=== PATIENT | female | born 1990 | race Caucasian/White ===

== ENCOUNTER 2017-02-19 11:26 | Emergency (ER) | payer OTHER ==
[2017-02-19 11:30] VITALS: PULSE 56; RESP 18
[2017-02-19] MEDS ORDERED: ONDANSETRON 4 MG/2 ML VIAL IVP STA (12:15)
[2017-02-19] MEDS ORDERED: SODIUM CHLORIDE 0.9% 1,000 ML IV ONE (12:15)
[2017-02-19 12:26] LABS: Appearance,Urine Clear (Clear); Bacteria,Urine Rare /hpf; Bilirubin,Urine Negative (Negative); Glucose,Urine (UA) Negative (Negative); Ketones,Urine Negative (Negative); Leukocyte Esterase,Urine Moderate (Negative); Mucus,Urine Rare /hpf; Nitrite,Urine Positive (Negative); PH, Urine 6.5 (5.0-8.0); Particle Count 4346; Protein,Urine Negative (Negative); RBC,Urine 23 /hpf (0-5); Specific Gravity,Urine 1.005 (1.001-1.035); Squamous Epithelial Cell,Urine 4 /hpf (0-4); UA Billing (MACRO vs. MICRO) MICRO; Urobilinogen,Urine <2.0 mg/dL (<2.0); WBC,Urine 23 /hpf (0-5)
--- NOTE | 2017-02-19 12:28 | ED ---
Female Urogenital HPI - General Chief complaint: Urogenital Stated complaint: Flank pain Time Seen by Provider: 02/19/17 11:54 Source: patient, RN notes reviewed Mode of arrival: ambulatory Limitations: no limitations - History of Present Illness Initial comments: Patient is a 26-year-old female since emergency room for evaluation of pain and burning while urinating. Patient states she went to urgent care facility yesterday and was diagnosed with urinary tract infection. Patient states she was placed on Cipro and sent home. Patient states that she still having urinary tract symptoms. Patient states the burning is worse today. Patient also states that she's having right sided flank pain. Patient denies fevers. Patient states having on and off chills. Patient also states she's been very nauseous. Patient denies being currently sexually active. Patient denies history of STDs. Patient denies any abnormal vaginal discharge or discomfort. Last Menstrual Period: 02/05/17 - Related Data Home Medications Medication Instructions Recorded Confirmed Etonogestrel/Ethinyl Estradiol 1 ring VAGINAL Q28D 05/19/16 02/19/17 [Nuvaring Vaginal Ring] Cranberry Fruit Concentrate [Azo 500 mg PO DAILY 02/19/17 02/19/17 Cranberry] Phenazopyridine [Pyridium] 100 mg PO TID 02/19/17 02/19/17 Previous Rx's Medication Instructions Recorded Ondansetron Odt [Zofran Odt] 4 mg PO Q8HR PRN #12 tab 02/19/17 Allergies Allergy/AdvReac Type Severity Reaction Status Date / Time No Known Allergies Allergy Verified 02/19/17 12:31 Review of Systems ROS Statement: Those systems with pertinent positive or pertinent negative responses have been documented in the HPI. ROS Other: All systems not noted in ROS Statement are negative. Past Medical History Past Medical History: Asthma History of Any Multi-Drug Resistant Organisms: None Reported Past Surgical History: Appendectomy Additional Past Surgical History / Comment(s): nose surg. Past Anesthesia/Blood Transfusion Reactions: No Reported Reaction Past Psychological History: No Psychological Hx Reported Smoking Status: Never smoker Past Alcohol Use History: Occasional Past Drug Use History: None Reported - Past Family History Mother Family Medical History: No Reported History General Exam - General Exam Comments Initial Comments: Sitting in exam room, no acute distress. Limitations: no limitations General appearance: alert, in no apparent distress Head exam: Present: atraumatic, normocephalic, normal inspection Eye exam: Present: normal appearance ENT exam: Present: normal exam Neck exam: Present: normal inspection Respiratory exam: Present: normal lung sounds bilaterally. Absent: respiratory distress Cardiovascular Exam: Present: regular rate, normal rhythm, normal heart sounds GI/Abdominal exam: Present: soft, normal bowel sounds. Absent: distended, tenderness, guarding, rebound, rigid External exam: Present: normal external exam Speculum exam: Present: normal speculum exam By manual exam: Present: normal by manual exam Extremities exam: Present: normal inspection Back exam: Present: normal inspection. Absent: CVA tenderness (R), CVA tenderness (L) Neurological exam: Present: alert, oriented X3, CN II-XII intact, normal gait Psychiatric exam: Present: normal affect, normal mood Skin exam: Present: warm, dry, intact, normal color. Absent: rash Course Vital Signs 02/19/17 11:27 Temperature 96.7 F L Pulse Rate 56 L Respiratory 18 Rate Blood Pressure 144/74 O2 Sat by Pulse 99 Oximetry - Reevaluation(s) Reevaluation #1: 02/19/17 13:32 Patient reevaluated and states she is feeling better. Labs show no significant findings. WBC within normal limits. We'll place patient on 1 g of IV Rocephin and discharge her home with current antibiotics that she was prescribed yesterday. Medical Decision Making - Medical Decision Making Patient is a 26-year-old female presents to the emergency room for evaluation of urinary tract infection symptoms. Urinalysis does confirm urinary tract infection. Patient has already been started on Cipro. Will place patient on IV Rocephin and discharge her and have her continue with Cipro. Labs within normal limits. Patient states she is feeling better. Return parameters discussed. Case discussed with Dr. Guzman. - Lab Data Result diagrams: 02/19/17 12:20 02/19/17 12:20 Lab Results 02/19/17 02/19/17 02/19/17 Range/Units 12:05 12:05 12:20 WBC (3.8-10.6) k/uL RBC (3.80-5.40) m/uL Hgb (11.4-16.0) gm/dL Hct (34.0-46.0) % MCV (80.0-100.0) fL MCH (25.0-35.0) pg MCHC (31.0-37.0) g/dL RDW (11.5-15.5) % Plt Count (150-450) k/uL Neutrophils % % Lymphocytes % % Monocytes % % Eosinophils % % Basophils % % Neutrophils # (1.3-7.7) k/uL Lymphocytes # (1.0-4.8) k/uL Monocytes # (0-1.0) k/uL Eosinophils # (0-0.7) k/uL Basophils # (0-0.2) k/uL Sodium (137-145) mmol/L Potassium (3.5-5.1) mmol/L Chloride (98-107) mmol/L Carbon Dioxide (22-30) mmol/L Anion Gap mmol/L BUN (7-17) mg/dL Creatinine (0.52-1.04) mg/dL Est GFR (MDRD) Af Amer (>60 ml/min/1.73 sqM) Est GFR (MDRD) Non-Af (>60 ml/min/1.73 sqM) Glucose (74-99) mg/dL Calcium (8.4-10.2) mg/dL Total Bilirubin (0.2-1.3) mg/dL AST (14-36) U/L ALT (9-52) U/L Alkaline Phosphatase (38-126) U/L Total Protein (6.3-8.2) g/dL Albumin (3.5-5.0) g/dL Urine Color Dark Yellow Urine Appearance Clear (Clear) Urine pH 6.5 (5.0-8.0) Ur Specific [place] 1.005 (1.001-1.035) Urine Protein Negative (Negative) Urine Glucose (UA) Negative (Negative) Urine Ketones Negative (Negative) Urine Blood Moderate H (Negative) Urine Nitrite Positive H (Negative) Urine Bilirubin Negative (Negative) Urine Urobilinogen <2.0 (<2.0) mg/dL Ur Leukocyte Esterase Moderate H (Negative) Urine RBC 23 H (0-5) /hpf Urine WBC 23 H (0-5) /hpf Ur Squamous Epith Cells 4 (0-4) /hpf Urine Bacteria Rare H (None) /hpf Urine Mucus Rare H (None) /hpf Urine HCG, Qual Not Detected (Not Detectd) Trichomonas Ag (Rapid) Negative (Negative) 02/19/17 02/19/17 Range/Units 12:20 12:20 WBC 9.0 (3.8-10.6) k/uL RBC 4.94 (3.80-5.40) m/uL Hgb 13.5 (11.4-16.0) gm/dL Hct 40.4 (34.0-46.0) % MCV 81.8 (80.0-100.0) fL MCH 27.2 (25.0-35.0) pg MCHC 33.3 (31.0-37.0) g/dL RDW 13.3 (11.5-15.5) % Plt Count 334 (150-450) k/uL Neutrophils % 71 % Lymphocytes % 22 % Monocytes % 4 % Eosinophils % 2 % Basophils % 1 % Neutrophils # 6.4 (1.3-7.7) k/uL Lymphocytes # 2.0 (1.0-4.8) k/uL Monocytes # 0.3 (0-1.0) k/uL Eosinophils # 0.1 (0-0.7) k/uL Basophils # 0.0 (0-0.2) k/uL Sodium 141 (137-145) mmol/L Potassium 3.8 (3.5-5.1) mmol/L Chloride 106 (98-107) mmol/L Carbon Dioxide 25 (22-30) mmol/L Anion Gap 10 mmol/L BUN 8 (7-17) mg/dL Creatinine 0.78 (0.52-1.04) mg/dL Est GFR (MDRD) Af Amer >60 (>60 ml/min/1.73 sqM) Est GFR (MDRD) Non-Af >60 (>60 ml/min/1.73 sqM) Glucose 85 (74-99) mg/dL Calcium 9.5 (8.4-10.2) mg/dL Total Bilirubin 0.4 (0.2-1.3) mg/dL AST 15 (14-36) U/L ALT 28 (9-52) U/L Alkaline Phosphatase 75 (38-126) U/L Total Protein 7.5 (6.3-8.2) g/dL Albumin 4.2 (3.5-5.0) g/dL Urine Color Urine Appearance (Clear) Urine pH (5.0-8.0) Ur Specific [place] (1.001-1.035) Urine Protein (Negative) Urine Glucose (UA) (Negative) Urine Ketones (Negative) Urine Blood (Negative) Urine Nitrite (Negative) Urine Bilirubin (Negative) Urine Urobilinogen (<2.0) mg/dL Ur Leukocyte Esterase (Negative) Urine RBC (0-5) /hpf Urine WBC (0-5) /hpf Ur Squamous Epith Cells (0-4) /hpf Urine Bacteria (None) /hpf Urine Mucus (None) /hpf Urine HCG, Qual (Not Detectd) Trichomonas Ag (Rapid) (Negative) Disposition Clinical Impression: Urinary tract infection Disposition: HOME SELF-CARE Condition: Good Instructions: Urinary Tract Infection in Women (ED) Additional Instructions: Continue with current antibiotics. Take Zofran as needed for nausea. Drink plenty of water. Take Tylenol or Motrin as needed for pain. Please follow up with primary care provider in 1-2 days. If any new symptom arises or symptoms worsen, return to ER as soon as possible. Prescriptions: Ondansetron Odt [Zofran Odt] 4 mg PO Q8HR PRN #12 tab PRN Reason: Nausea Referrals: Livan Covington MD [Primary Care Provider] - 1-2 days Time of Disposition: 13:32
[2017-02-19 12:44] LABS: Basophils % (A) 1 %; CH 27.3; CHCM 33.5; Eosinophils # (A) 0.1 k/uL (0-0.7); Eosinophils % (A) 2 %; HCT 40.4 % (34.0-46.0); HDW 2.56; HGB 13.5 gm/dL (11.4-16.0); Luc # (Auto) 0.11; Luc % (Auto) 1; Lymphocytes % (A) 22 %; MCH 27.2 pg (25.0-35.0); MCHC 33.3 g/dL (31.0-37.0); MCV 81.8 fL (80.0-100.0); Mean Platelet Volume 6.5; Monocytes # (A) 0.3 k/uL (0-1.0); Monocytes % (A) 4 %; Neutrophils # (A) 6.4 k/uL (1.3-7.7); Neutrophils % (A) 71 %; RBC 4.94 m/uL (3.80-5.40); RDW 13.3 % (11.5-15.5); WBC (Perox) 9.02
[2017-02-19 12:55] LABS: ALT 28 U/L (9-52); AST 15 U/L (14-36); Alkaline Phosphatase 75 U/L (38-126); Anion Gap 10 mmol/L; Blood Urea Nitrogen 8 mg/dL (7-17); Calcium 9.5 mg/dL (8.4-10.2); Carbon Dioxide 25 mmol/L (22-30); Chloride 106 mmol/L (98-107); Glucose 85 mg/dL (74-99); Non-African American GFR(MDRD) >60 (>60 ml/min/1.73 sqM); Potassium 3.8 mmol/L (3.5-5.1); Sodium 141 mmol/L (137-145); Total Bilirubin 0.4 mg/dL (0.2-1.3); Total Protein 7.5 g/dL (6.3-8.2)
[2017-02-19 14:19] VITALS: BP 118/71; TEMP 98
== END 2017-02-19 14:22 | disposition home or self-care (01) ==
LOC: EC 11:26
DX: N39.0 Urinary tract infection, site not specified (principal)
CPT/HCPCS: 36415; 80053; 87591; 87491; 85025; 81001; 81025; 87808; 87070; 87205; 96365; 96375; 99284; J2405; J0696

== ENCOUNTER 2020-04-17 03:06 | Emergency (ER) | payer OTHER ==
[2020-04-17 03:17] VITALS: RESP 16
--- NOTE | 2020-04-17 03:19 | ED ---
Eye Problem HPI - General Chief complaint: Eye Problems Stated complaint: Eye Problems Time Seen by Provider: 04/17/20 03:09 Source: patient, RN notes reviewed, old records reviewed Mode of arrival: ambulatory Limitations: no limitations - History of Present Illness MD chief complaint: eye pain (L), eye redness (L) -: hour(s) Onset Description: gradual Location: left eye Place: home If Injury: none Eye Symptoms: burning, redness, itching Severity: mild Severity scale (1-10): 3 If Pain, Quality: aching Consistency: constant Context: other (glasses) Associated Symptoms: none Treatments Prior to Arrival: none - Related Data Home Medications Medication Instructions Recorded Confirmed Etonogestrel/Ethinyl Estradiol 1 ring VAGINAL Q28D 05/19/16 02/19/17 [Nuvaring Vaginal Ring] Cranberry Fruit Concentrate [Azo 500 mg PO DAILY 02/19/17 02/19/17 Cranberry] Phenazopyridine [Pyridium] 100 mg PO TID 02/19/17 02/19/17 Previous Rx's Medication Instructions Recorded Ondansetron Odt [Zofran Odt] 4 mg PO Q8HR PRN #12 tab 02/19/17 Amoxic-Pot Clav 875-125Mg 1 tab PO Q12HR #20 tablet 04/17/20 [Augmentin 875-125] Allergies Allergy/AdvReac Type Severity Reaction Status Date / Time No Known Allergies Allergy Verified 04/17/20 03:17 Review of Systems ROS Statement: Those systems with pertinent positive or pertinent negative responses have been documented in the HPI. ROS Other: All systems not noted in ROS Statement are negative. Past Medical History Past Medical History: Asthma History of Any Multi-Drug Resistant Organisms: None Reported Past Surgical History: Appendectomy Additional Past Surgical History / Comment(s): nose surg. Past Anesthesia/Blood Transfusion Reactions: No Reported Reaction Past Psychological History: No Psychological Hx Reported Smoking Status: Never smoker Past Alcohol Use History: Occasional Past Drug Use History: None Reported - Past Family History Mother Family Medical History: No Reported History General Exam Limitations: no limitations General appearance: alert, in no apparent distress Head exam: Present: atraumatic, normocephalic, normal inspection Eye exam: Present: normal appearance, PERRL, EOMI, periorbital swelling (mild). Absent: scleral icterus, conjunctival injection ENT exam: Present: normal exam, mucous membranes moist Neck exam: Present: normal inspection. Absent: tenderness, meningismus, lymphadenopathy Respiratory exam: Present: normal lung sounds bilaterally. Absent: respiratory distress, wheezes, rales, rhonchi, stridor Cardiovascular Exam: Present: regular rate, normal rhythm, normal heart sounds. Absent: systolic murmur, diastolic murmur, rubs, gallop, clicks GI/Abdominal exam: Present: soft, normal bowel sounds. Absent: distended, tenderness, guarding, rebound, rigid Extremities exam: Present: normal inspection, full ROM, normal capillary refill. Absent: tenderness, pedal edema, joint swelling, calf tenderness Back exam: Present: normal inspection Neurological exam: Present: alert, oriented X3, CN II-XII intact Psychiatric exam: Present: normal affect, normal mood Skin exam: Present: warm, dry, intact, normal color. Absent: rash Course Vital Signs 04/17/20 04/17/20 03:16 04:49 Temperature 98.5 F 98 F Pulse Rate 68 69 Respiratory 16 16 Rate Blood Pressure 158/94 123/74 O2 Sat by Pulse 100 100 Oximetry Disposition Clinical Impression: Preseptal cellulitis of left eye, Left conjunctivitis Disposition: HOME SELF-CARE Condition: Good Instructions (If sedation given, give patient instructions): Periorbital Cellulitis in Adults (ED), Conjunctivitis (ED) Prescriptions: Amoxic-Pot Clav 875-125Mg [Augmentin 875-125] 1 tab PO Q12HR #20 tablet Is patient prescribed a controlled substance at d/c from ED?: No Referrals: Nonstaff,Physician [REFERRING] - 1-2 days
[2020-04-17] MEDS ORDERED: DEXAMETHASONE SOD PHOSPHATE 10 MG/ML 1 ML VIAL IM STA (04:18)
[2020-04-17] MEDS ORDERED: AMOXIC-POT CLAV 875-125MG 1 EACH TAB PO STA (04:18)
[2020-04-17] MEDS ORDERED: POLYMYXIN B-TRIMETHOPRIM SULF (10,000-1) OPHTH DROPS 10 ML BTL LEFT EYE STA (04:18)
[2020-04-17] MEDS ORDERED: ACET/COD 300 MG/30 MG STARTER PACK 6 TAB BTL PO STA (04:38)
[2020-04-17] MEDS ORDERED: IBUPROFEN 600 MG TAB PO STA (04:38)
[2020-04-17 04:49] VITALS: BP 123/74; PULSE 69; TEMP 98
== END 2020-04-17 04:49 | disposition home or self-care (01) ==
LOC: EC 03:06
DX: L03.213 Periorbital cellulitis (principal); H10.9 Unspecified conjunctivitis
CPT/HCPCS: 99283; 96372; J1100

== ENCOUNTER 2020-08-06 02:54 | Emergency (ER) | payer OTHER ==
[2020-08-06 02:59] VITALS: TEMP 97.6
--- NOTE | 2020-08-06 03:25 | ED ---
General Adult HPI - General Chief complaint: GI Bleed Stated complaint: Urogenital Time Seen by Provider: 08/06/20 02:59 Source: patient Mode of arrival: ambulatory Limitations: no limitations - History of Present Illness Initial comments: This patient is 30-year-old woman who complains of perianal pain. The patient relates that she had a colonoscopy and a hemorrhoid banding performed at about 11:[address] Yoon. She had gone home around 12:30 and then had gone to bed. She woke a number of hours later was some perianal discomfort that has just worsened and is now severe. She denies any abdominal pain. No fever or chills. No vomiting. No change in urination. She has tried some extra strength Tylenol without much relief. -: hour(s) Quality: sharp Consistency: constant Improves with: none Worsens with: none Associated Symptoms: denies other symptoms Treatments Prior to Arrival: other (Tylenol) - Related Data Home Medications Medication Instructions Recorded Confirmed Etonogestrel/Ethinyl Estradiol 1 ring VAGINAL Q28D 05/19/16 02/19/17 [Nuvaring Vaginal Ring] Cranberry Fruit Concentrate [Azo 500 mg PO DAILY 02/19/17 02/19/17 Cranberry] Phenazopyridine [Pyridium] 100 mg PO TID 02/19/17 02/19/17 Previous Rx's Medication Instructions Recorded Ondansetron Odt [Zofran Odt] 4 mg PO Q8HR PRN #12 tab 02/19/17 Amoxic-Pot Clav 875-125Mg 1 tab PO Q12HR #20 tablet 04/17/20 [Augmentin 875-125] Hydrocodone/Acetaminophen [[place] 1 each PO Q6HR PRN #15 tab 08/06/20 5-325] Allergies Allergy/AdvReac Type Severity Reaction Status Date / Time No Known Allergies Allergy Verified 08/06/20 02:59 Review of Systems ROS Statement: Those systems with pertinent positive or pertinent negative responses have been documented in the HPI. ROS Other: All systems not noted in ROS Statement are negative. Constitutional: Denies: fever, chills Respiratory: Denies: cough, dyspnea Cardiovascular: Denies: chest pain, palpitations Gastrointestinal: Reports: as per HPI, other (Perianal pain). Denies: abdominal pain, vomiting, diarrhea Genitourinary: Denies: dysuria, hematuria Musculoskeletal: Denies: back pain Skin: Denies: rash Neurological: Denies: headache Hematological/Lymphatic: Denies: easy bleeding Past Medical History Past Medical History: Asthma Additional Past Medical History / Comment(s): IBS History of Any Multi-Drug Resistant Organisms: None Reported Past Surgical History: Appendectomy Additional Past Surgical History / Comment(s): nose surg. colonoscopy Past Anesthesia/Blood Transfusion Reactions: No Reported Reaction Past Psychological History: No Psychological Hx Reported Smoking Status: Never smoker Past Alcohol Use History: Occasional Past Drug Use History: None Reported - Past Family History Mother Family Medical History: No Reported History General Exam Limitations: no limitations General appearance: alert, in no apparent distress Head exam: Present: atraumatic, normocephalic Eye exam: Present: normal appearance. Absent: scleral icterus, conjunctival injection Respiratory exam: Present: normal lung sounds bilaterally. Absent: respiratory distress, wheezes, rales, rhonchi, stridor Cardiovascular Exam: Present: regular rate, normal rhythm, normal heart sounds. Absent: systolic murmur, diastolic murmur, rubs, gallop GI/Abdominal exam: Present: soft. Absent: distended, tenderness, guarding, rebound, rigid, mass, pulsatile mass, hernia Rectal exam: Present: normal inspection, normal rectal tone Neurological exam: Present: alert Skin exam: Present: warm, dry, intact, normal color. Absent: rash Course Vital Signs 08/06/20 02:55 Temperature 97.6 F Pulse Rate 76 Respiratory 18 Rate Blood Pressure 161/104 O2 Sat by Pulse 99 Oximetry Medical Decision Making - Medical Decision Making This patient is 30-year-old woman presenting with perianal pain after having a hemorrhoid banding. There is no indication of intra-abdominal problem, absolutely no pain or any tenderness on the exam. Inspection of the anus normal. Finger exam deferred at patient request, given the pain due to procedure. She is in good relief with analgesia, and we discussed appropriate further care and follow-up as well as return parameters. Disposition Clinical Impression: Pain following surgery or procedure, Hemorrhoids, internal Disposition: HOME SELF-CARE Condition: Good Instructions (If sedation given, give patient instructions): Rubber Band Ligation (DC) Prescriptions: Hydrocodone/Acetaminophen [[place] 5-325] 1 each PO Q6HR PRN #15 tab PRN Reason: Pain Is patient prescribed a controlled substance at d/c from ED?: Yes When asked, does pt state using other controlled substances?: No If prescribed controlled substance>3 days was MAPS reviewed?: Prescribed <3 Days If opioid is for acute pain is fill amount 7 days or less?: Yes If Rx opioid, was Start Talking consent form obtained?: Yes Referrals: Cherelle Coppola MD [Primary Care Provider] - 1-2 days
[2020-08-06] MEDS ORDERED: HYDROmorphone 0.5 MG/0.5 ML SYRINGE IM STA (03:36)
[2020-08-06] MEDS ORDERED: ONDANSETRON ODT 4 MG TAB PO STA (03:48)
[2020-08-06] MEDS ORDERED: HYDROmorphone 1 MG/ML 1 ML SYRINGE IM STA (04:05)
[2020-08-06 04:50] VITALS: BP 110/67; PULSE 78; RESP 16
== END 2020-08-06 04:50 | disposition home or self-care (01) ==
LOC: EC 02:54
DX: G89.18 Other acute postprocedural pain (principal); K64.8 Other hemorrhoids; Z79.3 Long term (current) use of hormonal contraceptives
CPT/HCPCS: 96372 ×2; 99284; J1170 ×2

== ENCOUNTER 2021-05-05 07:48 | Emergency (ER) | payer OTHER ==
[2021-05-05 07:55] VITALS: BP 132/90; PULSE 95; RESP 18; TEMP 97.3
--- NOTE | 2021-05-05 08:06 | ED ---
Skin/Abscess/FB HPI - General Chief complaint: Skin/Abscess/Foreign Body Stated complaint: tick bite Time Seen by Provider: 05/05/21 07:58 Source: patient, family, RN notes reviewed Mode of arrival: ambulatory Limitations: no limitations - History of Present Illness Initial comments: 31-year-old female presents emergency Department chief complaint of a tick on her abdomen. Patient states she's been sitting up and outdoor venue. Patient states that she noticed overnight. Patient states it's very small no other complaints. - Related Data Home Medications Medication Instructions Recorded Confirmed Etonogestrel/Ethinyl Estradiol 1 ring VAGINAL Q28D 05/19/16 02/19/17 [Nuvaring Vaginal Ring] Cranberry Fruit Concentrate [Azo 500 mg PO DAILY 02/19/17 02/19/17 Cranberry] Phenazopyridine [Pyridium] 100 mg PO TID 02/19/17 02/19/17 Previous Rx's Medication Instructions Recorded Ondansetron Odt [Zofran Odt] 4 mg PO Q8HR PRN #12 tab 02/19/17 Amoxic-Pot Clav 875-125Mg 1 tab PO Q12HR #20 tablet 04/17/20 [Augmentin 875-125] Hydrocodone/Acetaminophen [[place] 1 each PO Q6HR PRN #15 tab 08/06/20 5-325] Allergies Allergy/AdvReac Type Severity Reaction Status Date / Time No Known Allergies Allergy Verified 05/05/21 07:55 Review of Systems ROS Statement: Those systems with pertinent positive or pertinent negative responses have been documented in the HPI. ROS Other: All systems not noted in ROS Statement are negative. Past Medical History Past Medical History: Asthma Additional Past Medical History / Comment(s): IBS History of Any Multi-Drug Resistant Organisms: None Reported Past Surgical History: Appendectomy Additional Past Surgical History / Comment(s): nose surg. colonoscopy Past Anesthesia/Blood Transfusion Reactions: No Reported Reaction Past Psychological History: No Psychological Hx Reported Smoking Status: Never smoker Past Alcohol Use History: Occasional Past Drug Use History: None Reported - Past Family History Mother Family Medical History: No Reported History General Exam Limitations: no limitations General appearance: alert, in no apparent distress Head exam: Present: atraumatic, normocephalic, normal inspection Respiratory exam: Present: normal lung sounds bilaterally. Absent: respiratory distress, wheezes, rales, rhonchi, stridor Cardiovascular Exam: Present: regular rate, normal rhythm, normal heart sounds. Absent: systolic murmur, diastolic murmur, rubs, gallop, clicks Neurological exam: Present: alert Psychiatric exam: Present: normal affect, normal mood Skin exam: Present: warm, dry, intact, normal color. Absent: rash Course Vital Signs 05/05/21 07:51 Temperature 97.3 F L Pulse Rate 95 Respiratory 18 Rate Blood Pressure 132/90 O2 Sat by Pulse 99 Oximetry Procedures - Procedures Initial comment: Small dog tick around the umbilicus was removed using tick forcep remover with no complications Medical Decision Making - Medical Decision Making Tick was removed with no complications. This was a dog tick. Patient be discharged stable condition. Disposition Clinical Impression: Tick bite of abdomen Disposition: HOME SELF-CARE Condition: Stable Instructions (If sedation given, give patient instructions): Tick Bite (ED) Additional Instructions: Please return to the Emergency Department if symptoms worsen or any other concerns. Is patient prescribed a controlled substance at d/c from ED?: No Referrals: Cherelle Coppola MD [Primary Care Provider] - 1-2 days Time of Disposition: 08:06
== END 2021-05-05 08:25 | disposition home or self-care (01) ==
LOC: EC 07:48
DX: S30.861A Insect bite (nonvenomous) of abdominal wall, initial encounter (principal); J45.909 Unspecified asthma, uncomplicated; W57.XXXA Bitten or stung by nonvenomous insect and other nonvenomous arthropods, initial encounter
CPT/HCPCS: 99282

== ENCOUNTER 2021-08-31 05:42 | Emergency (ER) | payer BC, OTHER ==
[2021-08-31 05:48] VITALS: BP 139/95; PULSE 67; RESP 22; TEMP 97.9
[2021-08-31] MEDS ORDERED: FLUORESCEIN STRIPS 1 MG STRIP RIGHT EYE ONE (05:55)
[2021-08-31] MEDS ORDERED: PROPARACAINE 0.5% OPHTH DROPS 15 ML BTL RIGHT EYE STA (05:55)
--- NOTE | 2021-08-31 06:14 | ED ---
Eye Problem HPI - General Chief complaint: Eye Problems Stated complaint: Left Eye Irritation Time Seen by Provider: 08/31/21 05:55 Source: patient, family, RN notes reviewed Mode of arrival: ambulatory Limitations: no limitations - History of Present Illness Initial comments: Patient is a 31-year-old female presenting to the ED for left eye pain that has been present since this morning. Patient states feeling is burning and itching feeling with worse pain located in upper eyelid. Patient denies any history of trauma or scratch to the eye. Patient describes pain as constant, "feeling of hot tears, feeling like there is rocks or stones in her eye". Patient states she is in 10/10 pain that is made worse with light and alleviated with closing eye. - Related Data Home Medications Medication Instructions Recorded Confirmed Etonogestrel/Ethinyl Estradiol 1 ring VAGINAL Q28D 05/19/16 02/19/17 [Nuvaring Vaginal Ring] Cranberry Fruit Concentrate [Azo 500 mg PO DAILY 02/19/17 02/19/17 Cranberry] Phenazopyridine [Pyridium] 100 mg PO TID 02/19/17 02/19/17 Previous Rx's Medication Instructions Recorded Ondansetron Odt [Zofran Odt] 4 mg PO Q8HR PRN #12 tab 02/19/17 Amoxic-Pot Clav 875-125Mg 1 tab PO Q12HR #20 tablet 04/17/20 [Augmentin 875-125] Hydrocodone/Acetaminophen [[place] 1 each PO Q6HR PRN #15 tab 08/06/20 5-325] Allergies Allergy/AdvReac Type Severity Reaction Status Date / Time No Known Allergies Allergy Verified 08/31/21 05:48 Review of Systems ROS Statement: Those systems with pertinent positive or pertinent negative responses have been documented in the HPI. ROS Other: All systems not noted in ROS Statement are negative. Past Medical History Past Medical History: Asthma Additional Past Medical History / Comment(s): IBS History of Any Multi-Drug Resistant Organisms: None Reported Past Surgical History: Appendectomy Additional Past Surgical History / Comment(s): nose surg. colonoscopy Past Anesthesia/Blood Transfusion Reactions: No Reported Reaction Past Psychological History: No Psychological Hx Reported Smoking Status: Never smoker Past Alcohol Use History: Occasional Past Drug Use History: None Reported - Past Family History Mother Family Medical History: No Reported History General Exam Limitations: no limitations General appearance: alert, in distress (Pain) Eye exam: Present: conjunctival injection, other (Superior lid edema). Absent: normal appearance Pupils: Present: normal accommodation, other (Patient had fluorescein uptake of the left eye there is an internalstye) ENT exam: Present: normal exam, mucous membranes moist Respiratory exam: Present: normal lung sounds bilaterally. Absent: respiratory distress, wheezes, rales, rhonchi, stridor Cardiovascular Exam: Present: regular rate, normal rhythm, normal heart sounds. Absent: systolic murmur, diastolic murmur, rubs, gallop, clicks Neurological exam: Present: alert, oriented X3, CN II-XII intact Skin exam: Present: warm, dry, intact, normal color. Absent: rash Course Vital Signs 08/31/21 05:43 Temperature 97.9 F Pulse Rate 67 Respiratory 22 Rate Blood Pressure 139/95 O2 Sat by Pulse 97 Oximetry Medical Decision Making - Medical Decision Making 31-year-old female presented for left eye irritation. Patient complete relief of symptoms of proparacaine. There appears to be a small internal stye, corneal abrasion. Patient was started on Tobrex ointment, eye drops and will follow-up with Dr. Bashir her sound printer. Disposition Clinical Impression: Corneal abrasion, right, Internal hordeolum of left eye Disposition: HOME SELF-CARE Condition: Stable Instructions (If sedation given, give patient instructions): Corneal Abrasion (ED) Additional Instructions: Please return to the Emergency Department if symptoms worsen or any other concerns. Is patient prescribed a controlled substance at d/c from ED?: No Referrals: Cherelle Coppola MD [Primary Care Provider] - 1-2 days Gabo Bashir DO [Doctor of Osteopathic Medicine] - 1-2 days Time of Disposition: 06:33
[2021-08-31] MEDS ORDERED: TOBRAMYCIN 0.3% OPHTH OINT 3.5 GM TUBE LEFT EYE STA (06:33)
[2021-08-31] MEDS ORDERED: TOBRAMYCIN 0.3% OPHTH DROPS 5 ML BTL LEFT EYE STA (06:33)
== END 2021-08-31 06:40 | disposition home or self-care (01) ==
LOC: EC 05:42
DX: H00.016 Hordeolum externum left eye, unspecified eyelid (principal); S05.01XA Injury of conjunctiva and corneal abrasion without foreign body, right eye, initial encounter; J45.909 Unspecified asthma, uncomplicated; Z90.49 Acquired absence of other specified parts of digestive tract; X58.XXXA Exposure to other specified factors, initial encounter
CPT/HCPCS: 99283

== ENCOUNTER → 2021-09-30 | Outpatient (CLI) | payer BC ==
[2021-10-02 06:03] LABS: Herpes simplex I and/or II IgM 0.52 INDEX (<=0.90); Herpes simplex IgG I Ab 0.33 (< or = 0.90); Herpes simplex IgG II Ab 0.11 (< or = 0.90)
== END | disposition home or self-care (01) ==
LOC: LABWHC1 10:27
PROVIDERS: ATTEND Internal Medicine
DX: H16.3 Interstitial and deep keratitis (principal)
CPT/HCPCS: 36415; 86480; 86618; 86694; 86695; 86696; 86780

== ENCOUNTER → 2021-10-28 | Outpatient (CLI) | payer BC ==
[2021-10-29 00:21] LABS: Rheumatoid Factor, Qnt <10 IU/mL (0-15)
[2021-10-30 14:42] LABS: C-ANCA <1:20 Titer (<1:20)
== END | disposition home or self-care (01) ==
LOC: LABWHC1 10:35
PROVIDERS: ATTEND Internal Medicine
DX: H16.3 Interstitial and deep keratitis (principal)
CPT/HCPCS: 36415; 86038; 86255; 86431; 86618

== ENCOUNTER → 2021-12-27 | Outpatient (CLI) | payer BC | END | disposition home or self-care (01) | LOC: LABWHC1 15:32 | PROVIDERS: ATTEND Internal Medicine | DX: H16.3 Interstitial and deep keratitis (principal) | CPT/HCPCS: 36415; 86617 ==

== ENCOUNTER 2022-04-06 20:50 | Emergency (ER) | payer BC ==
[2022-04-06 22:03] VITALS: BP 131/80; PULSE 107; RESP 18; TEMP 98.4
[2022-04-06] MEDS ORDERED: SODIUM CHLORIDE 0.9% 1,000 ML IV STA (22:42)
[2022-04-06] MEDS ORDERED: ONDANSETRON 4 MG/2 ML VIAL IVP STA (22:42)
--- NOTE | 2022-04-06 22:45 | ED ---
Nausea/Vomiting/Diarrhea HPI - General Chief complaint: Nausea/Vomiting/Diarrhea Stated complaint: Possible Food Poisoning Time Seen by Provider: 04/06/22 22:32 Source: patient, RN notes reviewed Mode of arrival: ambulatory Limitations: no limitations - History of Present Illness Initial comments: This is a pleasant 32-year-old female who presents complaining of nausea, vomiting, and diarrhea since this morning. Patient states that several family members have similar symptoms. Patient states she irrigated a concession stand yesterday at her nephew's T-ball game. Patient states anytime she tries to eat or drink anything she is not able to hold it down. She denies any hematemesis or coffee-ground emesis. No melena or hematochezia. Denies chance of . Patient now states that she's got some low back pain. Patient wondering if she strained her back when she was vomiting. MD complaint: nausea, vomiting, diarrhea - Related Data Home Medications Medication Instructions Recorded Confirmed Amitriptyline HCl [Elavil] 10 mg PO HS 04/06/22 04/06/22 Allergies Allergy/AdvReac Type Severity Reaction Status Date / Time No Known Allergies Allergy Verified 04/06/22 22:49 Review of Systems ROS Statement: Those systems with pertinent positive or pertinent negative responses have been documented in the HPI. ROS Other: All systems not noted in ROS Statement are negative. Past Medical History Past Medical History: Asthma Additional Past Medical History / Comment(s): IBS History of Any Multi-Drug Resistant Organisms: None Reported Past Surgical History: Appendectomy Additional Past Surgical History / Comment(s): nose surg. colonoscopy Past Anesthesia/Blood Transfusion Reactions: No Reported Reaction Past Psychological History: No Psychological Hx Reported Smoking Status: Never smoker Past Alcohol Use History: Occasional Past Drug Use History: None Reported - Past Family History Mother Family Medical History: No Reported History General Exam Limitations: no limitations General appearance: alert, in no apparent distress Head exam: Present: atraumatic, normocephalic, normal inspection Eye exam: Present: normal appearance, PERRL, EOMI. Absent: scleral icterus, conjunctival injection, periorbital swelling ENT exam: Present: normal exam, mucous membranes moist Neck exam: Present: normal inspection, full ROM. Absent: tenderness, meningismus, lymphadenopathy Respiratory exam: Present: normal lung sounds bilaterally. Absent: respiratory distress, wheezes, rales, rhonchi, stridor Cardiovascular Exam: Present: regular rate, normal rhythm, normal heart sounds. Absent: systolic murmur, diastolic murmur, rubs, gallop, clicks GI/Abdominal exam: Present: soft, normal bowel sounds. Absent: distended, tenderness (No significant tenderness), guarding, rebound, rigid Extremities exam: Present: normal inspection, full ROM, normal capillary refill. Absent: tenderness, pedal edema, joint swelling, calf tenderness Back exam: Present: normal inspection Neurological exam: Present: alert, oriented X3, CN II-XII intact Psychiatric exam: Present: normal affect, normal mood Skin exam: Present: warm, dry, intact, normal color. Absent: rash Course Vital Signs 04/06/22 22:01 Temperature 98.4 F Pulse Rate 107 H Respiratory 18 Rate Blood Pressure 131/80 O2 Sat by Pulse 98 Oximetry - Reevaluation(s) Reevaluation #1: 04/07/22 02:22 Medical record is reviewed Symptoms are improved here in the emergency department Patient is informed of results and questions answered Patient in no distress Repeat abdominal exam is benign, nontender, nondistended. Patient able to hold down fluids here in the ER. Medical Decision Making - Medical Decision Making Symptomology most consistent with gastroenteritis as she has multiple family members with similar symptomology. However she does have some low back pain. We'll order baseline laboratory work, we'll hydrate the patient. - Lab Data Result diagrams: 04/06/22 23:06 04/06/22 23:06 Lab Results 04/06/22 04/06/22 04/07/22 Range/Units 23:06 23:06 01:36 WBC 9.3 (3.8-10.6) k/uL RBC 5.27 (3.80-5.40) m/uL Hgb 13.7 (11.4-16.0) gm/dL Hct 42.5 (34.0-46.0) % MCV 80.7 (80.0-100.0) fL MCH 25.9 (25.0-35.0) pg MCHC 32.2 (31.0-37.0) g/dL RDW 14.6 (11.5-15.5) % Plt Count 395 (150-450) k/uL MPV 6.7 Neutrophils % 88 % Lymphocytes % 8 % Monocytes % 3 % Eosinophils % 1 % Basophils % 0 % Neutrophils # 8.2 H (1.3-7.7) k/uL Lymphocytes # 0.7 L (1.0-4.8) k/uL Monocytes # 0.3 (0-1.0) k/uL Eosinophils # 0.1 (0-0.7) k/uL Basophils # 0.0 (0-0.2) k/uL Sodium 137 (137-145) mmol/L Potassium 4.4 (3.5-5.1) mmol/L Chloride 105 (98-107) mmol/L Carbon Dioxide 25 (22-30) mmol/L Anion Gap 7 mmol/L BUN 14 (7-17) mg/dL Creatinine 0.81 (0.52-1.04) mg/dL Est GFR (CKD-EPI)AfAm >90 (>60 ml/min/1.73 sqM) Est GFR (CKD-EPI)NonAf >90 (>60 ml/min/1.73 sqM) Glucose 104 H (74-99) mg/dL Calcium 8.9 (8.4-10.2) mg/dL Total Bilirubin 0.7 (0.2-1.3) mg/dL AST 20 (14-36) U/L ALT 15 (4-34) U/L Alkaline Phosphatase 99 (38-126) U/L Total Protein 7.7 (6.3-8.2) g/dL Albumin 4.3 (3.5-5.0) g/dL Lipase 30 (23-300) U/L Urine Color Yellow Urine Appearance Clear (Clear) Urine pH 5.5 (5.0-8.0) Ur Specific Garner 1.030 (1.001-1.035) Urine Protein Trace H (Negative) Urine Glucose (UA) Negative (Negative) Urine Ketones Negative (Negative) Urine Blood Moderate H (Negative) Urine Nitrite Negative (Negative) Urine Bilirubin Negative (Negative) Urine Urobilinogen <2.0 (<2.0) mg/dL Ur Leukocyte Esterase Negative (Negative) Urine RBC 4 (0-5) /hpf Urine WBC 3 (0-5) /hpf Ur Squamous Epith Cells 1 (0-4) /hpf Urine Mucus Few H (None) /hpf Urine HCG, Qual (Not Detectd) 04/07/22 Range/Units 01:36 WBC (3.8-10.6) k/uL RBC (3.80-5.40) m/uL Hgb (11.4-16.0) gm/dL Hct (34.0-46.0) % MCV (80.0-100.0) fL MCH (25.0-35.0) pg MCHC (31.0-37.0) g/dL RDW (11.5-15.5) % Plt Count (150-450) k/uL MPV Neutrophils % % Lymphocytes % % Monocytes % % Eosinophils % % Basophils % % Neutrophils # (1.3-7.7) k/uL Lymphocytes # (1.0-4.8) k/uL Monocytes # (0-1.0) k/uL Eosinophils # (0-0.7) k/uL Basophils # (0-0.2) k/uL Sodium (137-145) mmol/L Potassium (3.5-5.1) mmol/L Chloride (98-107) mmol/L Carbon Dioxide (22-30) mmol/L Anion Gap mmol/L BUN (7-17) mg/dL Creatinine (0.52-1.04) mg/dL Est GFR (CKD-EPI)AfAm (>60 ml/min/1.73 sqM) Est GFR (CKD-EPI)NonAf (>60 ml/min/1.73 sqM) Glucose (74-99) mg/dL Calcium (8.4-10.2) mg/dL Total Bilirubin (0.2-1.3) mg/dL AST (14-36) U/L ALT (4-34) U/L Alkaline Phosphatase (38-126) U/L Total Protein (6.3-8.2) g/dL Albumin (3.5-5.0) g/dL Lipase (23-300) U/L Urine Color Urine Appearance (Clear) Urine pH (5.0-8.0) Ur Specific Garner (1.001-1.035) Urine Protein (Negative) Urine Glucose (UA) (Negative) Urine Ketones (Negative) Urine Blood (Negative) Urine Nitrite (Negative) Urine Bilirubin (Negative) Urine Urobilinogen (<2.0) mg/dL Ur Leukocyte Esterase (Negative) Urine RBC (0-5) /hpf Urine WBC (0-5) /hpf Ur Squamous Epith Cells (0-4) /hpf Urine Mucus (None) /hpf Urine HCG, Qual Not Detected (Not Detectd) Disposition Clinical Impression: Acute gastroenteritis Disposition: HOME SELF-CARE Condition: Good Instructions (If sedation given, give patient instructions): Gastroenteritis (ED) Additional Instructions: Clear liquid diet for the next 24 hours. Advance diet as tolerated thereafter. Follow-up with your regular physician as directed. Return to the ER immediately if any symptoms worsen, new symptoms arise, or any other problems develop. Is patient prescribed a controlled substance at d/c from ED?: No Referrals: Cherelle Coppola MD [Primary Care Provider] - 04/11/22 Time of Disposition: 02:23
[2022-04-06 23:44] LABS: Basophils % (A) 0 %; Eosinophils # (A) 0.1 k/uL (0-0.7); Eosinophils % (A) 1 %; HCT 42.5 % (34.0-46.0); HGB 13.7 gm/dL (11.4-16.0); Lymphocytes # (A) 0.7 k/uL (1.0-4.8); Lymphocytes % (A) 8 %; MCH 25.9 pg (25.0-35.0); MCHC 32.2 g/dL (31.0-37.0); MCV 80.7 fL (80.0-100.0); Mean Platelet Volume 6.7; Monocytes # (A) 0.3 k/uL (0-1.0); Monocytes % (A) 3 %; Neutrophils # (A) 8.2 k/uL (1.3-7.7); Neutrophils % (A) 88 %; Platelet Count 395 k/uL (150-450); RBC 5.27 m/uL (3.80-5.40); RDW 14.6 % (11.5-15.5); WBC 9.3 k/uL (3.8-10.6)
[2022-04-07 00:04] LABS: ALT 15 U/L (4-34); AST 20 U/L (14-36); African American GFR (CKD) >90 (>60 ml/min/1.73 sqM); Albumin 4.3 g/dL (3.5-5.0); Alkaline Phosphatase 99 U/L (38-126); Anion Gap 7 mmol/L; Blood Urea Nitrogen 14 mg/dL (7-17); Calcium 8.9 mg/dL (8.4-10.2); Carbon Dioxide 25 mmol/L (22-30); Chloride 105 mmol/L (98-107); Glucose 104 mg/dL (74-99); Lipase 30 U/L (23-300); Non-African American GFR(CKD) >90 (>60 ml/min/1.73 sqM); Potassium 4.4 mmol/L (3.5-5.1); Sodium 137 mmol/L (137-145); Total Bilirubin 0.7 mg/dL (0.2-1.3); Total Protein 7.7 g/dL (6.3-8.2)
[2022-04-07 02:07] LABS: Appearance,Urine Clear (Clear); Bilirubin,Urine Negative (Negative); Blood,Urine Moderate (Negative); Color,Urine Yellow; Glucose,Urine (UA) Negative (Negative); Ketones,Urine Negative (Negative); Leukocyte Esterase,Urine Negative (Negative); Mucus,Urine Few /hpf; Nitrite,Urine Negative (Negative); PH, Urine 5.5 (5.0-8.0); Protein,Urine Trace (Negative); RBC,Urine 4 /hpf (0-5); Squamous Epithelial Cell,Urine 1 /hpf (0-4); Urobilinogen,Urine <2.0 mg/dL (<2.0); WBC,Urine 3 /hpf (0-5)
== END 2022-04-07 03:03 | disposition home or self-care (01) ==
LOC: EC 20:50
DX: K52.9 Noninfective gastroenteritis and colitis, unspecified (principal); J45.909 Unspecified asthma, uncomplicated
CPT/HCPCS: 36415; 80053; 83690; 85025; 81001; 81025; 99284; 96374; 96361 ×2; J2405

== ENCOUNTER 2023-04-24 19:18 | Emergency (ER) | payer BC ==
[2023-04-24 19:45] VITALS: TEMP 97.9
[2023-04-24] MEDS ORDERED: KETOROLAC 15 MG/ML 1 ML VIAL IVP STA (20:14)
[2023-04-24 20:40] LABS: Basophils % (A) 0 %; Eosinophils # (A) 0.4 k/uL (0-0.7); Eosinophils % (A) 4 %; HCT 38.6 % (34.0-46.0); HGB 12.9 gm/dL (11.4-16.0); Lymphocytes # (A) 2.2 k/uL (1.0-4.8); Lymphocytes % (A) 23 %; MCH 26.7 pg (25.0-35.0); MCHC 33.5 g/dL (31.0-37.0); MCV 79.7 fL (80.0-100.0); Mean Platelet Volume 7.2; Monocytes # (A) 0.4 k/uL (0-1.0); Monocytes % (A) 4 %; Neutrophils # (A) 6.3 k/uL (1.3-7.7); Neutrophils % (A) 67 %; Platelet Count 316 k/uL (150-450); RBC 4.84 m/uL (3.80-5.40); RDW 14.9 % (11.5-15.5); WBC 9.5 k/uL (3.8-10.6)
[2023-04-24 20:54] LABS: ALT 44 U/L (4-34); AST 30 U/L (14-36); African American GFR (CKD) >90 (>60 ml/min/1.73 sqM); Albumin 4.2 g/dL (3.5-5.0); Alkaline Phosphatase 92 U/L (38-126); Anion Gap 12 mmol/L; Blood Urea Nitrogen 17 mg/dL (7-17); Calcium 9.6 mg/dL (8.4-10.2); Carbon Dioxide 25 mmol/L (22-30); Chloride 103 mmol/L (98-107); Glucose 93 mg/dL (74-99); Non-African American GFR(CKD) 86 (>60 ml/min/1.73 sqM); Partial Thromboplastin Time 23.7 sec (22.0-30.0); Potassium 3.6 mmol/L (3.5-5.1); Prothrombin Time 10.2 sec (9.0-12.0); Sodium 140 mmol/L (137-145); Total Bilirubin 0.3 mg/dL (0.2-1.3); Total Protein 7.4 g/dL (6.3-8.2)
[2023-04-24] MEDS ORDERED: HYDROmorphone 1 MG/ML 1 ML SYRINGE IVP STA (21:15)
--- NOTE | 2023-04-24 21:33 | XR ---
EXAMINATION TYPE: XR chest 2V DATE OF EXAM: 04/24/2023 9:27 PM COMPARISON: Chest radiographs from 03/29/2023 TECHNIQUE: XR chest 2V Frontal and lateral views of the chest. CLINICAL INDICATION:Female, 33 years old with history of Cough/pain; FINDINGS: Lungs/Pleura: There is no evidence of pleural effusion, focal consolidation, or pneumothorax. Pulmonary vascularity: Unremarkable. Heart/mediastinum: Cardiomediastinal silhouette is unremarkable. Musculoskeletal: No acute osseous pathology. IMPRESSION: No acute cardiopulmonary disease/process.
--- NOTE | 2023-04-24 21:35 | ED ---
General Adult HPI - General Chief complaint: Shortness of Breath Stated complaint: chest pain Time Seen by Provider: 04/24/23 19:45 Source: patient Mode of arrival: ambulatory Limitations: no limitations - History of Present Illness Initial comments: Review 3-year-old female presents to the emergency room reporting to right-sided chest pain. States that she was here a couple weeks ago with left-sided chest pain and was diagnosed with pleurisy. She did have a CT of her chest performed which did not demonstrate a PE. States that she has returned to work from having a baby. She is not reporting to right-sided chest pain with radiation through to her back. Pain is related to inspiration. She denies history of DVT or PE. No calf pain or swelling. She did not follow-up with her primary care doctor after the diagnosis. She denies fevers. No recent upper respiratory infections. No other alleviating, precipitating or modifying factors - Related Data Home Medications Medication Instructions Recorded Confirmed Amitriptyline HCl [Elavil] 10 mg PO HS 04/06/22 04/06/22 Previous Rx's Medication Instructions Recorded Ondansetron [Zofran ODT] 4 mg PO Q8HR #20 tab 04/07/22 Ketorolac [Toradol] 10 mg PO Q6HR #15 tab 03/29/23 HYDROcodone/APAP 10-325MG [[place] 1 tab PO Q4HR PRN #18 tab 04/24/23 10-325] Ibuprofen [Motrin] 600 mg PO Q6HR PRN #30 tab 04/24/23 Allergies Allergy/AdvReac Type Severity Reaction Status Date / Time No Known Allergies Allergy Verified 04/24/23 19:45 Review of Systems ROS Statement: Those systems with pertinent positive or pertinent negative responses have been documented in the HPI. ROS Other: All systems not noted in ROS Statement are negative. Past Medical History Past Medical History: Asthma Additional Past Medical History / Comment(s): IBS, pleurisy History of Any Multi-Drug Resistant Organisms: None Reported Past Surgical History: Appendectomy Additional Past Surgical History / Comment(s): nose surg. colonoscopy Past Anesthesia/Blood Transfusion Reactions: No Reported Reaction Past Psychological History: No Psychological Hx Reported Smoking Status: Never smoker Past Alcohol Use History: Occasional Past Drug Use History: None Reported - Past Family History Mother Family Medical History: No Reported History General Exam Limitations: no limitations General appearance: alert, in no apparent distress Head exam: Present: atraumatic, normocephalic, normal inspection Eye exam: Present: normal appearance, PERRL, EOMI. Absent: scleral icterus, conjunctival injection, periorbital swelling ENT exam: Present: normal exam, mucous membranes moist Neck exam: Present: normal inspection. Absent: tenderness, meningismus, lymphadenopathy Respiratory exam: Present: normal lung sounds bilaterally. Absent: respiratory distress, wheezes, rales, rhonchi, stridor Cardiovascular Exam: Present: regular rate, normal rhythm, normal heart sounds. Absent: systolic murmur, diastolic murmur, rubs, gallop, clicks GI/Abdominal exam: Present: soft, normal bowel sounds. Absent: distended, tenderness, guarding, rebound, rigid Extremities exam: Present: normal inspection, full ROM, normal capillary refill. Absent: tenderness, pedal edema, joint swelling, calf tenderness Back exam: Present: normal inspection Neurological exam: Present: alert, oriented X3, CN II-XII intact Psychiatric exam: Present: normal affect, normal mood Skin exam: Present: warm, dry, intact, normal color. Absent: rash Course Vital Signs 04/24/23 04/24/23 19:41 23:40 Temperature 97.9 F Pulse Rate 75 69 Respiratory 20 18 Rate Blood Pressure 142/82 135/79 O2 Sat by Pulse 99 99 Oximetry Medical Decision Making - Medical Decision Making Was pt. sent in by a medical professional or institution ([facility], SUPERVISING BAILIFF, urgent care, hospital, or halfway...) When possible be specific @ -No Did you speak to anyone other than the patient for history (EMS, parent, family, police, friend...)? What history was obtained from this source @ -Spoke with the patient's mother in regards to the symptoms Did you review nursing and triage notes (agree or disagree)? Why? @ -I reviewed and agree with nursing and triage notes Were old charts reviewed (outside hosp., previous admission, EMS record, old EKG, old radiological studies, urgent care reports/EKG's, halfway records)? Report findings @ -I reviewed the patient's ED visit on the fifth when she had similar symptoms and had a CT of her chest performed Differential Diagnosis (chest pain, altered mental status, abdominal pain women, abdominal pain men, vaginal bleeding, weakness, fever, dyspnea, syncope, headache, dizziness, GI bleed, back pain, seizure, CVA, palpatations, mental health, musculoskeletal)? @ -Differential Chest Pain: Stable Angina, Unstable Angina, STEMI, NSTEMI Aortic Dissection, Pneumothorax, Musculoskeletal, Esophageal Spasm GERD, Cholecystitis, Pancreatitis, Zoster, this is not meant to be an all-inclusive list. EKG interpreted by me (3pts min.). @ -EKG is interpreted by me and demonstrates normal sinus rhythm with rate 73. AL interval 176. QRS 86. QTC 469. No acute ST segment elevations or depressions X-rays interpreted by me (1pt min.). @ -No acute process and is interpreted by myself CT interpreted by me (1pt min.). @ -None done U/S interpreted by me (1pt. min.). @ -None done What testing was considered but not performed or refused? (CT, X-rays, U/S, labs)? Why? @ -None What meds were considered but not given or refused? Why? @ -None Did you discuss the management of the patient with other professionals (professionals i.e. , PA, SUPERVISING BAILIFF, lab, RT, psych nurse, social services specialist, basket assembler, teacher, executive officer special warfare team, case checker)? Give summary @ -No Was smoking cessation discussed for >3mins.? @ -No Was critical care preformed (if so, how long)? @ -No Were there social determinants of health that impacted care today? How? (Homelessness, low income, unemployed, alcoholism, drug addiction, gilmore sportation, low edu. Level, literacy, decrease access to med. care, nursing home, rehab)? @ -No Was there de-escalation of care discussed even if they declined (Discuss DNR or withdrawal of care, Hospice)? DNR status @ -No What co-morbidities impacted this encounter? (DM, HTN, Smoking, COPD, CAD, Cancer, CVA, ARF, Chemo, Hep., AIDS, mental health diagnosis, sleep apnea, morbid obesity)? @ -None Was patient admitted / discharged? Hospital course, mention meds given and route, prescriptions, significant lab abnormalities, going to OR and other pertinent info. @ -Upon arrival patient was placed in room 27. A thorough history and physical exam was performed. IV is established patient was given a dose of Toradol. Laboratory studies were conducted. D-dimer negative. Troponin negative. Patient reported awaiting continues to have pain and for she is given 1 mg of Dilaudid. Patient reevaluated and feels improved. Patient will be discharged home at this time. Recommend that she follow up with Dr. Ohara for evaluation of recurrent pleurisy Undiagnosed new problem with uncertain prognosis? @ -yes Drug Therapy requiring intensive monitoring for toxicity (Heparin, Nitro, Insulin, Cardizem)? @ -No Were any procedures done? @ -No Diagnosis/symptom? @ -Acute chest pain, suspected pleurisy Acute, or Chronic, or Acute on Chronic? @ -Acute Uncomplicated (without systemic symptoms) or Complicated (systemic symptoms)? @ -Complicated Side effects of treatment? @ -No Exacerbation, Progression, or Severe Exacerbation? @ -No Poses a threat to life or bodily function? How? (Chest pain, [place], AL, pneumonia, PE, COPD, DKA, ARF, appy, cholecystitis, CVA, Diverticulitis, Homicidal, Suicidal, threat to staff... and all critical care pts) @ -No - Lab Data Result diagrams: 04/24/23 20:29 04/24/23 20:29 Lab Results 04/24/23 04/24/23 04/24/23 Range/Units 20:29 20:29 20:29 WBC 9.5 (3.8-10.6) k/uL RBC 4.84 (3.80-5.40) m/uL Hgb 12.9 (11.4-16.0) gm/dL Hct 38.6 (34.0-46.0) % MCV 79.7 L (80.0-100.0) fL MCH 26.7 (25.0-35.0) pg MCHC 33.5 (31.0-37.0) g/dL RDW 14.9 (11.5-15.5) % Plt Count 316 (150-450) k/uL MPV 7.2 Neutrophils % 67 % Lymphocytes % 23 % Monocytes % 4 % Eosinophils % 4 % Basophils % 0 % Neutrophils # 6.3 (1.3-7.7) k/uL Lymphocytes # 2.2 (1.0-4.8) k/uL Monocytes # 0.4 (0-1.0) k/uL Eosinophils # 0.4 (0-0.7) k/uL Basophils # 0.0 (0-0.2) k/uL PT 10.2 (9.0-12.0) sec INR 1.0 (<1.2) APTT 23.7 (22.0-30.0) sec D-Dimer 0.26 (<0.60) mg/L FEU Sodium 140 (137-145) mmol/L Potassium 3.6 (3.5-5.1) mmol/L Chloride 103 (98-107) mmol/L Carbon Dioxide 25 (22-30) mmol/L Anion Gap 12 mmol/L BUN 17 (7-17) mg/dL Creatinine 0.89 (0.52-1.04) mg/dL Est GFR (CKD-EPI)AfAm >90 (>60 ml/min/1.73 sqM) Est GFR (CKD-EPI)NonAf 86 (>60 ml/min/1.73 sqM) Glucose 93 (74-99) mg/dL Plasma Lactic Acid [place] (0.7-2.0) mmol/L Calcium 9.6 (8.4-10.2) mg/dL Total Bilirubin 0.3 (0.2-1.3) mg/dL AST 30 (14-36) U/L ALT 44 H (4-34) U/L Alkaline Phosphatase 92 (38-126) U/L Troponin I (0.000-0.034) ng/mL NT-Pro-B Natriuret Pep pg/mL Total Protein 7.4 (6.3-8.2) g/dL Albumin 4.2 (3.5-5.0) g/dL 04/24/23 04/24/23 04/24/23 Range/Units 20:29 20:29 20:29 WBC (3.8-10.6) k/uL RBC (3.80-5.40) m/uL Hgb (11.4-16.0) gm/dL Hct (34.0-46.0) % MCV (80.0-100.0) fL MCH (25.0-35.0) pg MCHC (31.0-37.0) g/dL RDW (11.5-15.5) % Plt Count (150-450) k/uL MPV Neutrophils % % Lymphocytes % % Monocytes % % Eosinophils % % Basophils % % Neutrophils # (1.3-7.7) k/uL Lymphocytes # (1.0-4.8) k/uL Monocytes # (0-1.0) k/uL Eosinophils # (0-0.7) k/uL Basophils # (0-0.2) k/uL PT (9.0-12.0) sec INR (<1.2) APTT (22.0-30.0) sec D-Dimer (<0.60) mg/L FEU Sodium (137-145) mmol/L Potassium (3.5-5.1) mmol/L Chloride (98-107) mmol/L Carbon Dioxide (22-30) mmol/L Anion Gap mmol/L BUN (7-17) mg/dL Creatinine (0.52-1.04) mg/dL Est GFR (CKD-EPI)AfAm (>60 ml/min/1.73 sqM) Est GFR (CKD-EPI)NonAf (>60 ml/min/1.73 sqM) Glucose (74-99) mg/dL Plasma Lactic Acid [place] 1.0 (0.7-2.0) mmol/L Calcium (8.4-10.2) mg/dL Total Bilirubin (0.2-1.3) mg/dL AST (14-36) U/L ALT (4-34) U/L Alkaline Phosphatase (38-126) U/L Troponin I <0.012 (0.000-0.034) ng/mL NT-Pro-B Natriuret Pep 32 pg/mL Total Protein (6.3-8.2) g/dL Albumin (3.5-5.0) g/dL Disposition Clinical Impression: Pleuritic chest pain Disposition: HOME SELF-CARE Condition: Stable Instructions (If sedation given, give patient instructions): Pleurisy (ED) Additional Instructions: Please alternate taking the medications as directed. 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 return for any new or worsening symptoms Prescriptions: Ibuprofen [Motrin] 600 mg PO Q6HR PRN #30 tab PRN Reason: Pain HYDROcodone/APAP 10-325MG [[place] 10-325] 1 tab PO Q4HR PRN #18 tab PRN Reason: pain Is patient prescribed a controlled substance at d/c from ED?: Yes When asked, does pt state using other controlled substances?: No If prescribed controlled substance>3 days was MAPS reviewed?: Prescribed <3 Days Referrals: Cherelle Coppola MD [Primary Care Provider] - 1-2 days Zen Escobar MD [STAFF PHYSICIAN] - 1-2 days Time of Disposition: 23:11
[2023-04-24 23:41] VITALS: BP 135/79; PULSE 69; RESP 18
== END 2023-04-24 23:41 | disposition home or self-care (01) ==
LOC: EC 19:18
DX: R07.89 Other chest pain (principal); J45.909 Unspecified asthma, uncomplicated
CPT/HCPCS: 36415; 93005; 85379; 83880; 80053; 83605; 84484; 85025; 85610; 85730; 71046; 99284; 96374; 96375; J1170; J1885

== ENCOUNTER 2023-05-04 04:42 | Emergency (ER) | payer BC ==
[2023-05-04] MEDS ORDERED: diphenhydrAMINE 50 MG/ML 1 ML VIAL IVP STA (05:25)
[2023-05-04] MEDS ORDERED: ONDANSETRON 4 MG/2 ML VIAL IVP STA (05:25)
[2023-05-04] MEDS ORDERED: KETOROLAC 15 MG/ML 1 ML VIAL IVP STA (05:25)
[2023-05-04] MEDS ORDERED: PANTOPRAZOLE 40 MG/10 ML VIAL IVP STA (05:25)
[2023-05-04] MEDS ORDERED: SODIUM CHLORIDE 0.9% 2,000 ML IV STA (05:25)
[2023-05-04 06:32] LABS: Basophils % (A) 0 %; Eosinophils # (A) 0.2 k/uL (0-0.7); Eosinophils % (A) 2 %; HCT 40.6 % (34.0-46.0); Lymphocytes # (A) 1.7 k/uL (1.0-4.8); Lymphocytes % (A) 20 %; MCH 25.7 pg (25.0-35.0); MCV 80.2 fL (80.0-100.0); Mean Platelet Volume 7.4; Monocytes # (A) 0.5 k/uL (0-1.0); Monocytes % (A) 5 %; Neutrophils # (A) 6.3 k/uL (1.3-7.7); Neutrophils % (A) 72 %; Platelet Count 356 k/uL (150-450); RBC 5.06 m/uL (3.80-5.40); RDW 14.8 % (11.5-15.5); WBC 8.8 k/uL (3.8-10.6)
[2023-05-04 06:35] LABS: Appearance,Urine Clear (Clear); Bilirubin,Urine Negative (Negative); Blood,Urine Negative (Negative); Color,Urine Light Yellow; Glucose,Urine (UA) Negative (Negative); Ketones,Urine Negative (Negative); Leukocyte Esterase,Urine Negative (Negative); Nitrite,Urine Negative (Negative); Protein,Urine Negative (Negative); Urobilinogen,Urine <2.0 mg/dL (<2.0)
[2023-05-04 06:44] LABS: Partial Thromboplastin Time 24.3 sec (22.0-30.0); Prothrombin Time 10.2 sec (9.0-12.0)
[2023-05-04 06:54] LABS: HCG,Qualitative Serum Not Detected
[2023-05-04 06:59] LABS: ALT 41 U/L (4-34); AST 30 U/L (14-36); African American GFR (CKD) >90 (>60 ml/min/1.73 sqM); Albumin 4.3 g/dL (3.5-5.0); Alkaline Phosphatase 115 U/L (38-126); Amylase 55 U/L (30-110); Anion Gap 9 mmol/L; Blood Urea Nitrogen 10 mg/dL (7-17); Calcium 9.3 mg/dL (8.4-10.2); Carbon Dioxide 28 mmol/L (22-30); Chloride 104 mmol/L (98-107); Glucose 97 mg/dL (74-99); Lipase 47 U/L (23-300); Non-African American GFR(CKD) >90 (>60 ml/min/1.73 sqM); Potassium 3.9 mmol/L (3.5-5.1); Sodium 141 mmol/L (137-145); Total Bilirubin 0.5 mg/dL (0.2-1.3); Total Protein 7.5 g/dL (6.3-8.2)
--- NOTE | 2023-05-04 07:32 | ED ---
General Adult HPI - General Chief complaint: Nausea/Vomiting/Diarrhea Stated complaint: Food poising Time Seen by Provider: 05/04/23 05:00 Source: patient, RN notes reviewed, old records reviewed Mode of arrival: ambulatory Limitations: no limitations - History of Present Illness Initial comments: Patient is a 33-year-old female presents emergency Department complaining of nausea, vomiting, diarrhea as well as crampy abdominal pain the evening yesterd ay evening. Believes she has food poisoning. Unknown if other people ate the same food has the same complaints. States emesis is nonbilious nonbloody. States diarrhea is nonbloody. Denies any chest pain or shortness breath. No other acute complaint at this time. Abdomen pain is more of a pressure sensation all over her belly. It is soft. She presents as she wishes dehydrated. Has no other acute complaints at this time. - Related Data Home Medications Medication Instructions Recorded Confirmed Amitriptyline HCl [Elavil] 10 mg PO HS 04/06/22 04/06/22 Previous Rx's Medication Instructions Recorded Ondansetron [Zofran ODT] 4 mg PO Q8HR #20 tab 04/07/22 Ketorolac [Toradol] 10 mg PO Q6HR #15 tab 03/29/23 HYDROcodone/APAP 10-325MG [[place] 1 tab PO Q4HR PRN #18 tab 04/24/23 10-325] Ibuprofen [Motrin] 600 mg PO Q6HR PRN #30 tab 04/24/23 Ondansetron Odt [Zofran Odt] 4 mg PO Q8HR PRN 3 Days #9 tab 05/04/23 Allergies Allergy/AdvReac Type Severity Reaction Status Date / Time No Known Allergies Allergy Verified 05/04/23 04:50 Review of Systems ROS Statement: Those systems with pertinent positive or pertinent negative responses have been documented in the HPI. Review of Systems: CONST: Denies fever EYES: Denies blurry vision ENT: Denies nasal congestion C/V: Denies Chest pain RESP: Denies shortness of breath GI: Endorses crampy abdominal pain : Denies dysuria SKIN: Denies rash. MSK: Denies joint pain. NEURO: Denies headache ROS Other: All systems not noted in ROS Statement are negative. Past Medical History Past Medical History: Asthma Additional Past Medical History / Comment(s): IBS, pleurisy History of Any Multi-Drug Resistant Organisms: None Reported Past Surgical History: Appendectomy Additional Past Surgical History / Comment(s): nose surg. colonoscopy Past Anesthesia/Blood Transfusion Reactions: No Reported Reaction Past Psychological History: No Psychological Hx Reported Smoking Status: Never smoker Past Alcohol Use History: Occasional Past Drug Use History: None Reported - Past Family History Mother Family Medical History: No Reported History General Exam - General Exam Comments Initial Comments: General: Appears in no acute distress. HEAD: Normal with no signs of head trauma. EYES: EOMI ENT: Hearing grossly intact, normal oropharynx. Dry mucous membranes. RESPIRATORY: Clear breath sounds bilaterally. No wheezes, rales, or rhonchi. C/V: Regular rate and rhythm. S1 and S2 auscultated, no edema, peripheral pulses 2+ and intact throughout ABD: Abd is soft, nontender, nondistended. No guarding. No rebound tenderness. No peritoneal signs. No CVA tenderness to percussion. EXT: Normal range of motion, no obvious deformity SKIN: No rashes or lesions observed on exposed skin. NEURO: Alert and oriented 4. Limitations: no limitations Course Vital Signs 05/04/23 04:50 Temperature 97.9 F Pulse Rate 65 Respiratory 18 Rate Blood Pressure 155/82 O2 Sat by Pulse 98 Oximetry Medical Decision Making - Medical Decision Making Was pt. sent in by a medical professional or institution (NAYA Nettles, GRADUATE TEACHING ASSISTANT, urgent care, hospital, or [facility]...) When possible be specific @ -No Did you speak to anyone other than the patient for history (EMS, parent, family, police, friend...)? What history was obtained from this source @ -No Did you review nursing and triage notes (agree or disagree)? Why? @ -I reviewed and agree with nursing and triage notes Were old charts reviewed (outside hosp., previous admission, EMS record, old EKG, old radiological studies, urgent care reports/EKG's, [facility] records)? Report findings @ -No old charts were reviewed Differential Diagnosis (chest pain, altered mental status, abdominal pain women, abdominal pain men, vaginal bleeding, weakness, fever, dyspnea, syncope, headache, dizziness, GI bleed, back pain, seizure, CVA, palpatations, mental health, musculoskeletal)? @ -Differential Abdominal Pain Women: Appendicitis, Cholecystitis, diverticulosis, ischemic bowel, pancreatitis, hepatitis, UTI, gastroenteritis, AAA, incarcerated hernia, bowel obstruction, c onstipation, inflammatory bowel, hepatitis, peptic ulcer disease, splenic infarction, perforated viscus, vulvitis, ovarian torsion, PID, kidney stone, placenta abruption, this is not meant to be an all-inclusive list EKG interpreted by me (3pts min.). @ -None done X-rays interpreted by me (1pt min.). @ -None done CT interpreted by me (1pt min.). @ -None done U/S interpreted by me (1pt. min.). @ -None done What testing was considered but not performed or refused? (CT, X-rays, U/S, labs)? Why? @ -None What meds were considered but not given or refused? Why? @ -None Did you discuss the management of the patient with other professionals (professionals i.e. , PA, GRADUATE TEACHING ASSISTANT, lab, RT, psych nurse, social service coordinator, warehouse distribution manager, teacher, state highway police officer, special education case manager)? Give summary @ -No Was smoking cessation discussed for >3mins.? @ -No Was critical care preformed (if so, how long)? @ -No Were there social determinants of health that impacted care today? How? (Homelessness, low income, unemployed, alcoholism, drug addiction, transportation, low edu. Level, literacy, decrease access to med. care, assisted, rehab)? @ -No Was there de-escalation of care discussed even if they declined (Discuss DNR or withdrawal of care, Hospice)? DNR status @ -No What co-morbidities impacted this encounter? (DM, HTN, Smoking, COPD, CAD, Cancer, CVA, ARF, Chemo, Hep., AIDS, mental health diagnosis, sleep apnea, morbid obesity)? @ -None Was patient admitted / discharged? Hospital course, mention meds given and route, prescriptions, significant lab abnormalities, going to OR and other pertinent info. @ -Based on the patient's presentation and physical exam, I'm concerned for dehydration for the patient. Has been experiencing nausea, vomiting and diarrhea since yesterday. Very possible she is experiencing food poisoning. Clinically she does appear slightly dehydrated. Vital signs within acceptable limits. She does have dry mucous membranes. We will provide her with 2 L fluid bolus, as well as symptomatically treated with IV Protonix, Zofran, Toradol, Benadryl. We'll obtain basic abdominal labs at this time. She was in agreement this plan. Labs are within acceptable limits. Patient is not . On reevaluation, patient is feeling improved. She is tolerating oral intake. I believe it is safer to be discharged home. Strict return precautions discussed. I will provide the patient with a prescription for ODT Zofran. I instructed the patient to follow up with their PCP in the next 1-3 days. I explained that the patient should return to the emergency department if they experience any worsening symptoms. Strict return precautions were discussed with the patient. The patient expressed understanding of these instructions. I answered all questions that the patient had. The patient was discharged home in good condition with their prescriptions and follow up information. Undiagnosed new problem with uncertain prognosis? @ -No Drug Therapy requiring intensive monitoring for toxicity (Heparin, Nitro, Insulin, Cardizem)? @ -No Were any procedures done? @ -No Diagnosis/symptom? @ -Nausea, vomiting, diarrhea Acute, or Chronic, or Acute on Chronic? @ -Acute Uncomplicated (without systemic symptoms) or Complicated (systemic symptoms)? @ -Complicated Side effects of treatment? @ -No Exacerbation, Progression, or Severe Exacerbation? @ -No Poses a threat to life or bodily function? How? (Chest pain, USA, PA, pneumonia, PE, COPD, DKA, ARF, appy, cholecystitis, CVA, Diverticulitis, Homicidal, Suicidal, threat to staff... and all critical care pts) @ -No - Lab Data Result diagrams: 05/04/23 05:38 05/04/23 05:38 Lab Results 05/04/23 05/04/23 05/04/23 Range/Units 05:38 05:38 05:38 WBC 8.8 (3.8-10.6) k/uL RBC 5.06 (3.80-5.40) m/uL Hgb 13.0 (11.4-16.0) gm/dL Hct 40.6 (34.0-46.0) % MCV 80.2 (80.0-100.0) fL MCH 25.7 (25.0-35.0) pg MCHC 32.0 (31.0-37.0) g/dL RDW 14.8 (11.5-15.5) % Plt Count 356 (150-450) k/uL MPV 7.4 Neutrophils % 72 % Lymphocytes % 20 % Monocytes % 5 % Eosinophils % 2 % Basophils % 0 % Neutrophils # 6.3 (1.3-7.7) k/uL Lymphocytes # 1.7 (1.0-4.8) k/uL Monocytes # 0.5 (0-1.0) k/uL Eosinophils # 0.2 (0-0.7) k/uL Basophils # 0.0 (0-0.2) k/uL PT 10.2 (9.0-12.0) sec INR 1.0 (<1.2) APTT 24.3 (22.0-30.0) sec Sodium (137-145) mmol/L Potassium (3.5-5.1) mmol/L Chloride (98-107) mmol/L Carbon Dioxide (22-30) mmol/L Anion Gap mmol/L BUN (7-17) mg/dL Creatinine (0.52-1.04) mg/dL Est GFR (CKD-EPI)AfAm (>60 ml/min/1.73 sqM) Est GFR (CKD-EPI)NonAf (>60 ml/min/1.73 sqM) Glucose (74-99) mg/dL Calcium (8.4-10.2) mg/dL Total Bilirubin (0.2-1.3) mg/dL AST (14-36) U/L ALT (4-34) U/L Alkaline Phosphatase (38-126) U/L Total Protein (6.3-8.2) g/dL Albumin (3.5-5.0) g/dL Amylase (30-110) U/L Lipase (23-300) U/L HCG, Qual Urine Color Light Yellow Urine Appearance Clear (Clear) Urine pH 6.0 (5.0-8.0) Ur Specific [place] 1.010 (1.001-1.035) Urine Protein Negative (Negative) Urine Glucose (UA) Negative (Negative) Urine Ketones Negative (Negative) Urine Blood Negative (Negative) Urine Nitrite Negative (Negative) Urine Bilirubin Negative (Negative) Urine Urobilinogen <2.0 (<2.0) mg/dL Ur Leukocyte Esterase Negative (Negative) 05/04/23 Range/Units 05:38 WBC (3.8-10.6) k/uL RBC (3.80-5.40) m/uL Hgb (11.4-16.0) gm/dL Hct (34.0-46.0) % MCV (80.0-100.0) fL MCH (25.0-35.0) pg MCHC (31.0-37.0) g/dL RDW (11.5-15.5) % Plt Count (150-450) k/uL MPV Neutrophils % % Lymphocytes % % Monocytes % % Eosinophils % % Basophils % % Neutrophils # (1.3-7.7) k/uL Lymphocytes # (1.0-4.8) k/uL Monocytes # (0-1.0) k/uL Eosinophils # (0-0.7) k/uL Basophils # (0-0.2) k/uL PT (9.0-12.0) sec INR (<1.2) APTT (22.0-30.0) sec Sodium 141 (137-145) mmol/L Potassium 3.9 (3.5-5.1) mmol/L Chloride 104 (98-107) mmol/L Carbon Dioxide 28 (22-30) mmol/L Anion Gap 9 mmol/L BUN 10 (7-17) mg/dL Creatinine 0.81 (0.52-1.04) mg/dL Est GFR (CKD-EPI)AfAm >90 (>60 ml/min/1.73 sqM) Est GFR (CKD-EPI)NonAf >90 (>60 ml/min/1.73 sqM) Glucose 97 (74-99) mg/dL Calcium 9.3 (8.4-10.2) mg/dL Total Bilirubin 0.5 (0.2-1.3) mg/dL AST 30 (14-36) U/L ALT 41 H (4-34) U/L Alkaline Phosphatase 115 (38-126) U/L Total Protein 7.5 (6.3-8.2) g/dL Albumin 4.3 (3.5-5.0) g/dL Amylase 55 (30-110) U/L Lipase 47 (23-300) U/L HCG, Qual Not Detected Urine Color Urine Appearance (Clear) Urine pH (5.0-8.0) Ur Specific [place] (1.001-1.035) Urine Protein (Negative) Urine Glucose (UA) (Negative) Urine Ketones (Negative) Urine Blood (Negative) Urine Nitrite (Negative) Urine Bilirubin (Negative) Urine Urobilinogen (<2.0) mg/dL Ur Leukocyte Esterase (Negative) Disposition Clinical Impression: Nausea and vomiting, Diarrhea Disposition: HOME SELF-CARE Condition: Good Instructions (If sedation given, give patient instructions): Acute Nausea and Vomiting (ED), Acute Diarrhea (ED) Prescriptions: Ondansetron Odt [Zofran Odt] 4 mg PO Q8HR PRN 3 Days #9 tab PRN Reason: Nausea Is patient prescribed a controlled substance at d/c from ED?: No Referrals: Cherelle Coppola MD [Primary Care Provider] - 1-2 days Time of Disposition: 07:15
[2023-05-04 08:42] VITALS: BP 107/73; PULSE 56; RESP 16; TEMP 98.6
== END 2023-05-04 08:40 | disposition home or self-care (01) ==
LOC: EC 04:42
DX: R11.2 Nausea with vomiting, unspecified (principal); R19.7 Diarrhea, unspecified; J45.909 Unspecified asthma, uncomplicated
CPT/HCPCS: 36415; 80053; 82150; 83690; 85025; 85610; 85730; 81003; 84703; 99284; 96374; 96375 ×3; 96361 ×3; J1200; J2405; J1885; C9113

== ENCOUNTER 2023-05-09 05:22 | Observation (INO) | payer BC ==
[2023-05-09] MEDS ORDERED: ONDANSETRON 4 MG/2 ML VIAL IVP STA (06:05)
[2023-05-09] MEDS ORDERED: MORPHINE SULFATE 4 MG/ML SYRINGE IVP STA (06:05)
[2023-05-09] MEDS ORDERED: SODIUM CHLORIDE 0.9% 1,000 ML IV STA ×2 (06:05→07:18)
--- NOTE | 2023-05-09 06:06 | ED ---
Abdominal Pain HPI - General Chief Complaint: Abdominal Pain Stated Complaint: N/V/ Chills Time Seen by Provider: 05/09/23 06:00 Source: patient, RN notes reviewed Mode of arrival: ambulatory Limitations: no limitations - History of Present Illness Initial Comments: Patient is a 33-year-old female presented to the emergency room with complaints of nausea, vomiting, diaphoresis, feeling flushed and upper right quadrant/epigastric region severe abdominal pain. She is unable to identify any aggravating or alleviating factors to the abdominal pain. She was here in the emergency room 5 days ago with complaints of nausea, vomiting and diarrhea and at that time believe she had food poisoning. She reports that the vomiting resolved but that her nausea has lingered since her initial presentation several days ago. At that time she did not have any abdominal pain, diaphoresis, or flush feeling. At this time she denies any diarrhea. She denies any chest pain, shortness of breath, dysuria, urinary frequency, known viral exposure or fevers. She has a past medical history significant for IBS but reports that the symptoms are not like her typical IBS symptoms. She has an additional past medical history significant for asthma and pleurisy. - Related Data Home Medications Medication Instructions Recorded Confirmed Amitriptyline HCl [Elavil] 10 mg PO HS 04/06/22 04/06/22 Previous Rx's Medication Instructions Recorded Ondansetron [Zofran ODT] 4 mg PO Q8HR #20 tab 04/07/22 Ketorolac [Toradol] 10 mg PO Q6HR #15 tab 03/29/23 HYDROcodone/APAP 10-325MG [Elliott 1 tab PO Q4HR PRN #18 tab 04/24/23 10-325] Ibuprofen [Motrin] 600 mg PO Q6HR PRN #30 tab 04/24/23 Ondansetron Odt [Zofran Odt] 4 mg PO Q8HR PRN 3 Days #9 tab 05/04/23 Allergies Allergy/AdvReac Type Severity Reaction Status Date / Time No Known Allergies Allergy Verified 05/04/23 04:50 Review of Systems ROS Statement: Those systems with pertinent positive or pertinent negative responses have been documented in the HPI. ROS Other: All systems not noted in ROS Statement are negative. Past Medical History Past Medical History: Asthma Additional Past Medical History / Comment(s): IBS, pleurisy History of Any Multi-Drug Resistant Organisms: None Reported Past Surgical History: Appendectomy Additional Past Surgical History / Comment(s): nose surg. colonoscopy Past Anesthesia/Blood Transfusion Reactions: No Reported Reaction Past Psychological History: No Psychological Hx Reported Smoking Status: Never smoker Past Alcohol Use History: Occasional Past Drug Use History: None Reported - Past Family History Mother Family Medical History: No Reported History General Exam Limitations: no limitations General appearance: alert, in no apparent distress, other (Appears in pain) Head exam: Present: atraumatic, normocephalic, normal inspection Eye exam: Present: normal appearance, PERRL, EOMI. Absent: scleral icterus, conjunctival injection, periorbital swelling ENT exam: Present: normal exam, mucous membranes moist Neck exam: Present: normal inspection, full ROM. Absent: tenderness Respiratory exam: Present: normal lung sounds bilaterally. Absent: respiratory distress, wheezes, rales, rhonchi, stridor Cardiovascular Exam: Present: regular rate, normal rhythm, normal heart sounds. Absent: systolic murmur, diastolic murmur, rubs, gallop, clicks GI/Abdominal exam: Present: soft, tenderness (Right upper and epigastric leny on), normal bowel sounds. Absent: distended, guarding, rebound, rigid Extremities exam: Present: normal inspection. Absent: pedal edema, joint swelling Back exam: Present: normal inspection, full ROM Neurological exam: Present: alert, oriented X3, CN II-XII intact Psychiatric exam: Present: normal affect, normal mood Course Vital Signs 05/09/23 05/09/23 05/09/23 05:23 06:40 06:50 Temperature 97.6 F Pulse Rate 65 57 L Respiratory 20 10 L Rate Blood Pressure 149/92 126/72 O2 Sat by Pulse 100 100 Oximetry 05/09/23 07:00 Temperature Pulse Rate 52 L Respiratory 16 Rate Blood Pressure 147/94 O2 Sat by Pulse 100 Oximetry Medical Decision Making - Medical Decision Making Was pt. sent in by a medical professional or institution (, PA, AIRCRAFT LAY OUT WORKER, urgent care, hospital, or fci...) When possible be specific @ -No Did you speak to anyone other than the patient for history (EMS, parent, family, police, friend...)? What history was obtained from this source @ -No Did you review nursing and triage notes (agree or disagree)? Why? @ -I reviewed and agree with nursing and triage notes Were old charts reviewed (outside hosp., previous admission, EMS record, old EKG, old radiological studies, urgent care reports/EKG's, fci records)? Report findings @ -Yes, laboratory studies from previous ER visit 05/05/2023 were reviewed. Differential Diagnosis (chest pain, altered mental status, abdominal pain women, abdominal pain men, vaginal bleeding, weakness, fever, dyspnea, syncope, headache, dizziness, GI bleed, back pain, seizure, CVA, palpatations, mental health, musculoskeletal)? @ -Differential Abdominal Pain Women: Appendicitis, Cholecystitis, diverticulosis, ischemic bowel, pancreatitis, hepatitis, UTI, gastroenteritis, AAA, incarcerated hernia, bowel obstruction, constipation, inflammatory bowel, hepatitis, peptic ulcer disease, splenic i nfarction, perforated viscus, vulvitis, ovarian torsion, PID, kidney stone, placenta abruption, this is not meant to be an all-inclusive list EKG interpreted by me (3pts min.). @ -Sinus bradycardia, ventricular rate 45 bpm, MO interval 163 ms, QRS duration 97 ms, QT/QTC 428/484 ms, PRT axes 21, 34, 31 X-rays interpreted by me (1pt min.). @ -None done CT interpreted by me (1pt min.). @ -CT abdomen and pelvis: Small bowel inflammation no evidence of obstruction. Radiologist notes gallbladder surgically absent however present on film evaluation. Radiologist notified for reevaluation of imaging. U/S interpreted by me (1pt. min.). @ -Ultrasound gallbladder: Not interpreted by me per radiologist report no evidence of cholecystitis, pericholecystic fluid or cholelithiasis. What testing was considered but not performed or refused? (CT, X-rays, U/S, labs)? Why? @ -None What meds were considered but not given or refused? Why? @ -None Did you discuss the management of the patient with other professionals (professionals i.e. , PA, AIRCRAFT LAY OUT WORKER, lab, RT, psych nurse, drug abuse social worker, relationship counselor, teacher, chief marketing officer, bottle caser)? Give summary @ -Yes spoke with Dr. Greco on [facility] regarding patient presentation, workup and recommendation of admission for intractable abdominal pain nausea and vomiting. He is accepting of admission and requesting urinalysis for to be added on to laboratory studies; he advised no additional orders at this time. Will place admission orders with urine hCG. Was smoking cessation discussed for >3mins.? @ -No Was critical care preformed (if so, how long)? @ -No Were there social determinants of health that impacted care today? How? (Homelessness, low income, unemployed, alcoholism, drug addiction, transportation, low edu. Level, literacy, decrease access to med. care, [facility], rehab)? @ -No Was there de-escalation of care discussed even if they declined (Discuss DNR or withdrawal of care, Hospice)? DNR status @ -No What co-morbidities impacted this encounter? (DM, HTN, Smoking, COPD, CAD, Cancer, CVA, ARF, Chemo, Hep., AIDS, mental health diagnosis, sleep apnea, morbid obesity)? @ -None Was patient admitted / discharged? Hospital course, mention meds given and r oute, prescriptions, significant lab abnormalities, going to OR and other pertinent info. @ -33-year-old female presenting to the emergency room with complaints of nausea, vomiting, diaphoresis, flushing and right upper quadrant and epigastric region abdominal pain. No pain on previous presentation 5 days ago with nausea vomiting and diarrhea. Vomiting and diarrhea had resolved. No resolution of nausea from 5 days ago. Unable to identify any aggravating or alleviating factors. Will start workup for abdominal pain with EKG, CBC, CMP, amylase, lipase, lactic acid, urinalysis and viral swabbing for Covid influenza and RSV. In the setting of recent abdominal pain was worsening of symptoms will obtain CT of the abdomen and pelvis with contrast as well. Will give 1 L fluid with Morphine pain and Zofran for nausea. EKG demonstrates sinus bradycardia will add magnesium and troponin to laboratory studies. Pain and nausea persist despite Zofran and morphine will give Compazine, Dilaudid in additional 1 L fluid bolus. AST normal, ALTs slightly elevated 42 with normal bilirubin, normal amylase, normal lipase and normal alkaline phosphatase. Glucose slightly elevated at 111 no other abnormalities on CMP. Lactic acid normal. CBC without abnormalities. CT of the abdomen demonstrates small bowel inflammation consistent with small bowel enteritis. No obstruction. Ultrasound of the gallbladder negative for acute cholecystitis or abnormalities associated with gallbladder/liver. Findings discussed with patient at length. Patient is concerned regarding return of pain and severity of pain and requirement of medication to help control pain. Advised observation stay for intractable abdominal pain and nausea. Patient is agreeable to this. Spoke with Dr. Greco on this for [facility] physicians who covers for patient's primary care provider regarding workup and recommendation for intractable abdominal pain observation stay. He is accepting of admission. He is requesting repeat of urine for hCG. Will repeat. Urine hCG and urinalysis currently pending. Will admit patient in stable condition to observation unit under [facility] physicians for treatment intractable abdominal pain and nausea vomiting. Undiagnosed new problem with uncertain prognosis? @ -No Drug Therapy requiring intensive monitoring for toxicity (Heparin, Nitro, Insulin, Cardizem)? @ -No Were any procedures done? @ -No Diagnosis/symptom? @ -Abdominal pain with nausea and vomiting Acute, or Chronic, or Acute on Chronic? @ -Acute Uncomplicated (without systemic symptoms) or Complicated (systemic symptoms)? @ -Complicated Side effects of treatment? @ -No Exacerbation, Progression, or Severe Exacerbation? @ -No Poses a threat to life or bodily function? How? (Chest pain, [place], [place], pneumonia, PE, COPD, DKA, ARF, appy, cholecystitis, CVA, Diverticulitis, Homicidal, Suicidal, threat to staff... and all critical care pts) @ -Yes, at risk for electrolyte abnormalities due to persistent nausea and vomiting along with dehydration. Case discussed with Dr. Turner. - Lab Data Result diagrams: 05/09/23 06:30 05/09/23 06:30 Lab Results 05/09/23 05/09/23 05/09/23 Range/Units 06:30 06:30 06:30 WBC 9.3 (3.8-10.6) k/uL RBC 5.24 (3.80-5.40) m/uL Hgb 13.6 (11.4-16.0) gm/dL Hct 41.9 (34.0-46.0) % MCV 79.8 L (80.0-100.0) fL MCH 26.0 (25.0-35.0) pg MCHC 32.6 (31.0-37.0) g/dL RDW 14.9 (11.5-15.5) % Plt Count 401 (150-450) k/uL MPV 7.4 Neutrophils % 74 % Lymphocytes % 20 % Monocytes % 4 % Eosinophils % 2 % Basophils % 0 % Neutrophils # 6.9 (1.3-7.7) k/uL Lymphocytes # 1.8 (1.0-4.8) k/uL Monocytes # 0.4 (0-1.0) k/uL Eosinophils # 0.1 (0-0.7) k/uL Basophils # 0.0 (0-0.2) k/uL Sodium 139 (137-145) mmol/L Potassium 4.0 (3.5-5.1) mmol/L Chloride 104 (98-107) mmol/L Carbon Dioxide 24 (22-30) mmol/L Anion Gap 11 mmol/L BUN 8 (7-17) mg/dL Creatinine 0.75 (0.52-1.04) mg/dL Est GFR (CKD-EPI)AfAm >90 (>60 ml/min/1.73 sqM) Est GFR (CKD-EPI)NonAf >90 (>60 ml/min/1.73 sqM) Glucose 118 H (74-99) mg/dL Plasma Lactic Acid Lamont 1.7 (0.7-2.0) mmol/L Calcium 9.6 (8.4-10.2) mg/dL Magnesium 1.9 (1.6-2.3) mg/dL Total Bilirubin 0.5 (0.2-1.3) mg/dL AST 32 (14-36) U/L ALT 42 H (4-34) U/L Alkaline Phosphatase 120 (38-126) U/L Troponin I (0.000-0.034) ng/mL Total Protein 8.0 (6.3-8.2) g/dL Albumin 4.6 (3.5-5.0) g/dL Amylase 54 (30-110) U/L Lipase 55 (23-300) U/L 05/09/23 Range/Units 06:30 WBC (3.8-10.6) k/uL RBC (3.80-5.40) m/uL Hgb (11.4-16.0) gm/dL Hct (34.0-46.0) % MCV (80.0-100.0) fL MCH (25.0-35.0) pg MCHC (31.0-37.0) g/dL RDW (11.5-15.5) % Plt Count (150-450) k/uL MPV Neutrophils % % Lymphocytes % % Monocytes % % Eosinophils % % Basophils % % Neutrophils # (1.3-7.7) k/uL Lymphocytes # (1.0-4.8) k/uL Monocytes # (0-1.0) k/uL Eosinophils # (0-0.7) k/uL Basophils # (0-0.2) k/uL Sodium (137-145) mmol/L Potassium (3.5-5.1) mmol/L Chloride (98-107) mmol/L Carbon Dioxide (22-30) mmol/L Anion Gap mmol/L BUN (7-17) mg/dL Creatinine (0.52-1.04) mg/dL Est GFR (CKD-EPI)AfAm (>60 ml/min/1.73 sqM) Est GFR (CKD-EPI)NonAf (>60 ml/min/1.73 sqM) Glucose (74-99) mg/dL Plasma Lactic Acid [place]ont (0.7-2.0) mmol/L Calcium (8.4-10.2) mg/dL Magnesium (1.6-2.3) mg/dL Total Bilirubin (0.2-1.3) mg/dL AST (14-36) U/L ALT (4-34) U/L Alkaline Phosphatase (38-126) U/L Troponin I <0.012 (0.000-0.034) ng/mL Total Protein (6.3-8.2) g/dL Albumin (3.5-5.0) g/dL Amylase (30-110) U/L Lipase (23-300) U/L - Radiology Data Radiology results: report reviewed, image reviewed Disposition Clinical Impression: Abdominal pain, Nausea and vomiting Disposition: ADMITTED IP TO THIS [facility] Condition: Stable Referrals: Cherelle Coppola MD [Primary Care Provider] - 1-2 days Time of Disposition: 09:31
[2023-05-09 06:54] LABS: Basophils % (A) 0 %; Eosinophils # (A) 0.1 k/uL (0-0.7); Eosinophils % (A) 2 %; HCT 41.9 % (34.0-46.0); HGB 13.6 gm/dL (11.4-16.0); Lymphocytes # (A) 1.8 k/uL (1.0-4.8); Lymphocytes % (A) 20 %; MCHC 32.6 g/dL (31.0-37.0); MCV 79.8 fL (80.0-100.0); Mean Platelet Volume 7.4; Monocytes # (A) 0.4 k/uL (0-1.0); Monocytes % (A) 4 %; Neutrophils # (A) 6.9 k/uL (1.3-7.7); Neutrophils % (A) 74 %; Platelet Count 401 k/uL (150-450); RBC 5.24 m/uL (3.80-5.40); RDW 14.9 % (11.5-15.5); WBC 9.3 k/uL (3.8-10.6)
[2023-05-09 06:59] LABS: ALT 42 U/L (4-34); AST 32 U/L (14-36); African American GFR (CKD) >90 (>60 ml/min/1.73 sqM); Albumin 4.6 g/dL (3.5-5.0); Alkaline Phosphatase 120 U/L (38-126); Amylase 54 U/L (30-110); Anion Gap 11 mmol/L; Blood Urea Nitrogen 8 mg/dL (7-17); Calcium 9.6 mg/dL (8.4-10.2); Carbon Dioxide 24 mmol/L (22-30); Chloride 104 mmol/L (98-107); Glucose 118 mg/dL (74-99); Lipase 55 U/L (23-300); Magnesium 1.9 mg/dL (1.6-2.3); Non-African American GFR(CKD) >90 (>60 ml/min/1.73 sqM); Sodium 139 mmol/L (137-145); Total Bilirubin 0.5 mg/dL (0.2-1.3)
--- NOTE | 2023-05-09 07:15 | CT ---
EXAMINATION TYPE: CT abdomen pelvis w con DATE OF EXAM: 05/09/2023 COMPARISON: 07/14/2012 HISTORY: Epigastric pain, nausea and vomiting CT DLP: 1335.8 mGycm CONTRAST: CT scan of the abdomen and pelvis is performed without Oral Contrast and with IV Contrast, patient in jected with 100 mL of Isovue 300. FINDINGS: LUNG BASES-: No visible nodule. No infiltrate. LIVER/GB: No calcified gallstones. No space occupying hepatic lesion. Biliary tree is of normal ca liber. PANCREAS: No inflammation. No distinct mass. SPLEEN: No splenic enlargement. No lesion seen. ADRENALS: No nodule. No thickening. KIDNEYS/BLADDER: No hydronephrosis. No nephrolithiasis. No distinct renal mass. Urinary bladder g rossly unremarkable. BOWEL: The gallbladder surgically absent. Normal bowel caliber. Small bowel wall thickening without fluid distention seen is likely reflective nonspecific enteritis. Differential diagnostic possibiliti es include infectious, inflammatory and vascular etiologies. GENITAL ORGANS: No gross abnormality. LYMPH NODES: No greater than 1cm abdominal or pelvic lymph nodes are appreciated. AORTA: No significant abnormality. OSSEOUS STRUCTURES: No significant abnormality is seen. OTHER: No significant additional abnormality is seen. IMPRESSION: 1. Orally for small bowel enteritis.
[2023-05-09] MEDS ORDERED: HYDROmorphone 0.5 MG/0.5 ML SYRINGE IVP STA (07:17)
[2023-05-09] MEDS ORDERED: PROCHLORPERAZINE INJ 10 MG/2 ML VIAL IVP STA (07:17)
--- NOTE | 2023-05-09 08:27 | US ---
EXAMINATION TYPE: US gallbladder DATE OF EXAM: 05/09/2023 COMPARISON: CT abdomen pelvis 05/09/2023, abdominal ultrasound 05/19/2016. CLINICAL INDICATION: Female, 33 years old with history of RUQ pain; Pain nausea and vomiting. TECHNIQUE: Multiple sonographic images of the right upper quadrant are obtained. FINDINGS: EXAM MEASUREMENTS: Liver Length: 18.2 cm Gallbladder Wall: .2 cm CBD: .4 cm Right Kidney: 10.7 x 3.4 x 4.7 cm EVENT MARKETING INTERN NOTES: Pancreas: Tail obscured by overlying bowel gas Liver: wnl Gallbladder: No stones seen Evidence for sonographic Aldridge's sign: No CBD: wnl Right Kidney: No hydronephrosis or masses seen Visualized portions of pancreas unremarkable. The tail is obscured by overlying bowel gas. Liver is u nremarkable without focal lesion. Gallbladder is unremarkable without evidence of pericholecystic flu id, wall thickening, or cholelithiasis. Per administrative program specialist, negative sonographic Aldridge sign. Common gumaro e duct within normal limits. Right kidney is unremarkable without evidence of hydronephrosis, solid m ass, or nephrolithiasis. IMPRESSION: No sonographic evidence for an acute process.
[2023-05-09] MEDS ORDERED: NALOXONE 0.4 MG/ML 1 ML VIAL IV PRN (08:56)
[2023-05-09] MEDS ORDERED: HYDROmorphone 0.5 MG/0.5 ML SYRINGE IVP PRN (09:16)
[2023-05-09] MEDS: SODIUM CHLORIDE 0.9% 1,000 ML IV SCH ×2 (09:31→23:55)
[2023-05-09 09:45] LABS: Appearance,Urine Clear (Clear); Bilirubin,Urine Negative (Negative); Blood,Urine Negative (Negative); Color,Urine Light Yellow; Glucose,Urine (UA) Negative (Negative); Ketones,Urine Negative (Negative); Leukocyte Esterase,Urine Negative (Negative); Nitrite,Urine Negative (Negative); Protein,Urine Negative (Negative); Urobilinogen,Urine <2.0 mg/dL (<2.0)
[2023-05-09 09:47] LABS: Specific Gravity,Urine >1.050 (1.001-1.035)
--- NOTE | 2023-05-09 14:27 | P.HPIM ---
History of Present Illness H&P Date: 05/09/23 Chief Complaint: Epigastric abdominal pain Patient is a 33-year-old female with a past medical history of GERD and IBS who presents to the ED with epigastric abdominal pain and intractable nausea and vomiting. Patient states that her symptoms started yesterday. In the ED patient reports that her symptoms have improved. She is able to tolerate her clear liquid diet. Computed tomography scan did show small bowel enteritis. Patient denies eating anything out of the ordinary. Patient's labs were unremarkable. Her UA was negative for UTI. test was negative. Patient was admitted for GI evaluation and symptomatic care. Review of symptoms: 10 ROS reviewed and are negative except as noted in HPI Physical exam General: [Alert and oriented, well nourished, no acute distress]. Eye: [PERRL, EOMI, normal conjunctiva]. HENT: [Normocephalic, clear tympanic membranes, normal hearing, moist oral mucosa, no scleral icterus, no sinus tenderness]. Neck: [Supple, non-tender, no carotid bruits, no JVD, no lymphadenopathy]. Lungs: [Clear to auscultation and percussion, non-labored respiration]. Heart: [Normal rate, regular rhythm, no murmur, gallop or edema]. Abdomen: [Soft, non-tender, non-distended, normal bowel sounds, no masses]. Musculoskeletal: [Normal range of motion and strength, no tenderness or swelling]. Skin: [Skin is warm, dry and pink, no rashes or lesions]. Neurologic: [Awake, alert, and oriented X3, CN II-XII intact]. Psychiatric: [Cooperative, appropriate mood and affect]. Assessment and plan Small bowel enteritis GERD IBS We'll resume symptomatic care with IV fluids and IV Dilaudid 0.5 mg IV every 3 hours when necessary and IV Compazine 5 mg every 6 hours when necessary. We'll also start the patient on IV Protonix 40 mg daily. We'll request for GI consult. I have reviewed patient's computed tomography scan as mentioned above. Patient's labs are unremarkable so no need to trend. Patient states that his symptoms is not consistent with IBS. DVT prophylaxis encourage early ambulation CODE STATUS:full code DVT prophylaxis: mechanical Discussed with: Patient, ER Anticipated length of stay < than [address]: home Past Medical History Past Medical History: Asthma Additional Past Medical History / Comment(s): IBS, pleurisy History of Any Multi-Drug Resistant Organisms: None Reported Past Surgical History: Appendectomy Additional Past Surgical History / Comment(s): nose surg. colonoscopy Past Anesthesia/Blood Transfusion Reactions: No Reported Reaction Past Psychological History: No Psychological Hx Reported Smoking Status: Never smoker Past Alcohol Use History: Occasional Past Drug Use History: None Reported - Past Family History Mother Family Medical History: No Reported History Medications and Allergies Home Medications Medication Instructions Recorded Confirmed Type Cetirizine HCl [Zyrtec] 10 mg PO DAILY PRN 05/09/23 05/09/23 History Omeprazole Magnesium [PriLOSEC OTC] 20 mg PO DAILY 05/09/23 05/09/23 History Allergies Allergy/AdvReac Type Severity Reaction Status Date / Time No Known Allergies Allergy Verified 05/09/23 09:45 Physical Exam Osteopathic Statement: *. No significant issues noted on an osteopathic structural exam other than those noted in the History and Physical/Consult. Vitals: Vital Signs Temp Pulse Resp BP Pulse Ox 05/09/23 07:00 52 L 16 147/94 100 05/09/23 06:50 126/72 05/09/23 06:40 57 L 10 L 100 05/09/23 05:23 97.6 F 65 20 149/92 100 Intake and Output 05/08/23 05/09/23 05/09/23 22:59 06:59 14:59 Other: Weight 87.997 kg Results CBC & Chem 7: 05/09/23 06:30 05/09/23 06:30 Labs: Abnormal Lab Results - Last 24 Hours (Table) 05/09/23 05/09/23 05/09/23 Range/Units 06:30 06:30 09:26 MCV 79.8 L (80.0-100.0) fL Glucose 118 H (74-99) mg/dL ALT 42 H (4-34) U/L Ur Specific [place] >1.050 H (1.001-1.035)
[2023-05-09] MEDS: PANTOPRAZOLE 40 MG/10 ML VIAL IVP SCH (14:39)
--- NOTE | 2023-05-09 15:15 | P.CONS ---
History of Present Illness - Reason for Consult Consult date: 05/09/23 Abdominal pain Requesting physician: Jonathan Ashby - Chief Complaint Abdominal pain, nausea vomiting - History of Present Illness This is a 33-year-old female who presented to the emergency department with complaints of nausea vomiting and abdominal pain 1 day's duration. Patient states she started having nausea yesterday followed by vomiting through the night and severe upper abdominal pain. Patient does have a history of IBS states that pain is not associated to her IBS. She denies any heartburn or acid reflux. Denies any regular use of NSAIDs. Does not point that she hasn't had any sick contacts. Today she says she is now starting to feel better she is tolerating a clear liquid diet. Abdominal pain has subsided with pain medication. He denies any diarrhea. She's had a previous EGD done in [address] Dickerson that showed minimal gastritis. No previous colonoscopy. Patient is afebrile, no leukocytosis. Labs are essentially normal. She underwent a CT of the abdomen and pelvis that reported small bowel wall thickening without fluid distention seen likely reflective of nonspecific enteritis. Differential diagnostic possibilities include infectious, inflammatory or vascular etiologies. She also underwent ultrasound of the abdomen without any acute process. Review of Systems REVIEW OF SYSTEMS: CARDIOPULMONARY: No chest pain or shortness of breath. Gastrointestinal: Epigastric pain. Nausea and vomiting now subsided. No diarrhea. No hematemesis, coffee-ground emesis. No rectal bleeding, or melena. GENITOURINARY: No dysuria or hematuria. MUSCULOSKELETAL: Reports normal range of motion. SKIN: No rashes. No jaundice. ENDOCRINE: No chills, fevers. No excessive weight gain or loss. No polydipsia or polyuria. PSYCHIATRIC: Unremarkable. NEUROLOGY: No change in mental status. Denies dizziness, headache. ENT: Vision unremarkable. CONSTITUTIONAL: No recent weight loss. No fever, chills, night sweats. Past Medical History Past Medical History: Asthma Additional Past Medical History / Comment(s): IBS, pleurisy History of Any Multi-Drug Resistant Organisms: None Reported Past Surgical History: Appendectomy Additional Past Surgical History / Comment(s): nose surg. colonoscopy Past Anesthesia/Blood Transfusion Reactions: No Reported Reaction Past Psychological History: No Psychological Hx Reported Smoking Status: Never smoker Past Alcohol Use History: Occasional Past Drug Use History: None Reported - Past Family History Mother Family Medical History: No Reported History Medications and Allergies Home Medications Medication Instructions Recorded Confirmed Type Cetirizine HCl [Zyrtec] 10 mg PO DAILY PRN 05/09/23 05/09/23 History Omeprazole Magnesium [PriLOSEC OTC] 20 mg PO DAILY 05/09/23 05/09/23 History Allergies Allergy/AdvReac Type Severity Reaction Status Date / Time No Known Allergies Allergy Verified 05/09/23 09:45 Physical Exam Vitals: Vital Signs Temp Pulse Resp BP Pulse Ox 05/09/23 07:00 52 L 16 147/94 100 05/09/23 06:50 126/72 05/09/23 06:40 57 L 10 L 100 05/09/23 05:23 97.6 F 65 20 149/92 100 Intake and Output 05/08/23 05/09/23 05/09/23 22:59 06:59 14:59 Other: Weight 87.997 kg General appearance: The patient is alert, oriented, appears in no acute distress. HET: Head is normocephalic and atraumatic. Conjunctiva pink. Sclera anicteric. Neck: Supple without lymphadenopathy. Trachea midline. Heart: S1 S2. Regular rate and rhythm. Lungs: Clear to auscultation. Abdomen: Soft, minimal epigastric tenderness, nondistended with bowel sounds. No guarding or rigidity. Skin: No rashes. No jaundice. Extremities: Normal skin color and turgor. No pedal edema. Neurological: No focal deficits. Alert and oriented x3. Results CBC & Chem 7: 05/09/23 06:30 05/09/23 06:30 Labs: Abnormal Lab Results - Last 24 Hours (Table) 05/09/23 05/09/23 05/09/23 Range/Units 06:30 06:30 09:26 MCV 79.8 L (80.0-100.0) fL Glucose 118 H (74-99) mg/dL ALT 42 H (4-34) U/L Ur Specific [place] >1.050 H (1.001-1.035) Assessment and Plan (1) Abdominal pain Narrative/Plan: 33-year-old presenting with abdominal pain nausea and vomiting [address] abdomen suggestive of small bowel enteritis. Symptoms are improving. She's had no diarrhea, tolerating clear liquid diet. Likely patient with a viral enteritis. If symptoms continued to improve she can be discharged otherwise consider possible endoscopic evaluation if symptoms worsen. Current Visit: Yes Status: Acute Code(s): R10.9 - UNSPECIFIED ABDOMINAL PAIN SNOMED Code(s): 96039915 (2) Nausea and vomiting Current Visit: Yes Status: Acute Code(s): R11.2 - NAUSEA WITH VOMITING, UNSPECIFIED SNOMED Code(s): 30077183 Plan: 1. Continue symptomatic and supportive care 2. Clear liquid diet, advance as tolerated 3. Protonix 40 mg daily 4. Antiemetics as needed 5. No plans on endoscopic evaluation. If symptoms improve patient may be cleared for discharge otherwise consider EGD. Thank you for this consultation, we'll continue to follow. Dr. Shikha Fleming I agree with the dictator's note, documented as a scribe by Lachelle Roque.
[2023-05-09] MEDS: PROCHLORPERAZINE INJ 10 MG/2 ML VIAL IVP PRN (21:34)
[2023-05-10] MEDS: PANTOPRAZOLE 40 MG/10 ML VIAL IVP SCH (08:12)
--- NOTE | 2023-05-10 10:07 | P.PN ---
Subjective Progress Note Date: 05/10/23 Principal diagnosis: Nausea vomiting, abdominal pain This is a 33-year-old female who presented to the emergency department with complaints of nausea vomiting and abdominal pain 1 day's duration. Patient states she started having nausea yesterday followed by vomiting through the night and severe upper abdominal pain. Patient does have a history of IBS states that pain is not associated to her IBS. She denies any heartburn or acid reflux. Denies any regular use of NSAIDs. Does not point that she hasn't had any sick contacts. Today she says she is now starting to feel better she is tolerating a clear liquid diet. Abdominal pain has subsided with pain medication. He denies any diarrhea. She's had a previous EGD done [place] [address] Dickerson that showed minimal gastritis. No previous colonoscopy. Patient is afebrile, no leukocytosis. Labs are essentially normal. She underwent a CT of the abdomen and pelvis that reported small bowel wall thickening without fluid distention seen likely reflective of nonspecific enteritis. Differential diagnostic possibilities include infectious, inflammatory or vascular etiologies. She also underwent ultrasound of the abdomen without any acute process. 05/10/2023 Patient is seen today and examined as a follow-up for abdominal pain with nausea and vomiting. Patient states she had some abdominal pain through the night however was much less intense. She states she is feeling much better this morning. She would like to try to eat more food. She's been afebrile. No vomiting. No diarrhea. Objective - Vital Signs Vital signs: Vital Signs Temp 98.1 F 05/10/23 03:32 Pulse 75 05/10/23 03:32 Resp 18 05/10/23 03:32 BP 126/76 05/10/23 03:32 Pulse Ox 96 05/10/23 03:32 FiO2 Intake & Output 05/09/23 05/10/23 05/10/23 18:59 06:59 18:59 Weight 87.997 kg Other: Voiding Method Toilet # Voids 1 - Exam General appearance: The patient is alert, oriented, appears in no acute distress. HET: Head is normocephalic and atraumatic. Conjunctiva pink. Sclera anicteric. Neck: Supple without lymphadenopathy. Abdomen: Soft, nontender, nondistended with bowel sounds. No guarding or rigidity. Extremities: Normal skin color and turgor. No pedal edema Skin: No rashes, no jaundice Neurological: No focal deficits. Alert and oriented. - Labs CBC & Chem 7: 05/09/23 06:30 05/09/23 06:30 Assessment and Plan (1) Abdominal pain Narrative/Plan: 33-year-old presenting with abdominal pain nausea and vomiting [address] abdomen suggestive of small bowel enteritis. Symptoms are improving. She's had no diarrhea, tolerating clear liquid diet. Likely patient with a viral enteritis. If symptoms continued to improve she can be discharged otherwise consider possible endoscopic evaluation if symptoms worsen. Symptoms improved. Likely viral or infectious enteritis. No plans on endoscopic evaluation. May be clear for discharge once diet is advanced and tolerated. Current Visit: Yes Status: Acute Code(s): R10.9 - UNSPECIFIED ABDOMINAL PAIN SNOMED Code(s): 76460690 (2) Nausea and vomiting Current Visit: Yes Status: Acute Code(s): R11.2 - NAUSEA WITH VOMITING, UNSPECIFIED SNOMED Code(s): 40747208 Plan: 1. Continue symptomatic and supportive care 2. Advance to low-fat diet 3. Protonix 40 mg daily 4. Antiemetics as needed 5. No plans on endoscopic evaluation 6. HIDA scan ordered Gen. surgery on consult 7. Hold discharge until further evaluated by general surgery Thank you for this consultation, we will sign off at this time as there will be no further gastroenterology available in-house. Dr. Shkiha Fleming I agree with the dictator's note, documented as a scribe by Lachelle Roque.
--- NOTE | 2023-05-10 11:42 | NM ---
EXAMINATION TYPE: NM hepatobiliary w CCK DATE OF EXAM: 05/10/2023 COMPARISON: NONE INDICATION: Epigastric pain TECHNIQUE: After the intravenous administration of 5.1 mCi Tc 99m Mebrofenin hepatobiliary scintigrap hy is performed. Images were obtained immediately post injection. FINDINGS: There is prompt uptake and excretion of radiotracer by the liver. Extrahepatic ducts are identified at 8 minutes. The gallbladder is visualized within 8 minutes. Small bowel activity is noted within 26 minutes. At one hour Kinevac was administered, patient was injected with 1.8 mcg of Kinevac, and gallbladder e jection fraction is calculated at 17 %, which is low. (Normal >35% and <80%.). IMPRESSION: 1. Low ejection fraction of 17%. Correlate for biliary hypokinesia
[2023-05-10] MEDS: SODIUM CHLORIDE 0.9% 1,000 ML IV SCH (12:00)
--- NOTE | 2023-05-10 14:36 | P.GSCN ---
History of Present Illness Consult date: 05/10/23 History of present illness: CHIEF COMPLAINT: Abdominal pain HISTORY OF PRESENT ILLNESS: This is a 33-year-old female who presented to the hospital with complaints of nausea, vomiting and abdominal pain. She reports that the pain started yesterday evening around 11:30 in the epigastric area. She reports the pain as severe and rated it 10 out of 10. The pain did not radiate. She has been having nausea and vomiting. In prior to the pain she had nausea throughout the day. She had no relief in the pain after vomiting. She has been having diarrhea but she reports that the diarrhea is chronic for her and she possibly has underlying history of IBS. She also admits to having chills and sweats. Her abdominal pain has shown some improvement today at [employer] in the epigastric area and she is currently eating a regular diet. Her past surgical history includes appendectomy and she had a 3 months ago. Computed tomography scan had shown small bowel enteritis. A gallbladder ultrasound had shown no evidence of gallstones. Due to her continuous pain and had vomiting last night HIDA scan was ordered and did show an abnormal EF of 17% and biliary hypokinesia. Surgical service consulted in regards to abnormal HIDA scan. Patient also had reported last week she had been to the ER with similar symptoms thought due to food poisoning. She reports that she had been feeling better before this pain started yesterday. Patient reports last colonoscopy in 2019 which was negative. Last EGD in 2016 minimal antral gastritis. Patient also seen by GI service with no plans of endoscopy. PAST MEDICAL HISTORY: See below PAST SURGICAL HISTORY: See below MEDICATIONS: See below ALLERGIES: See below SOCIAL HISTORY: No illicit drug use. REVIEW OF SYSTEMS: CONSTITUTIONAL: Denies fever or chills. HEENT: Denies blurred vision, vision changes, or eye pain. Denies hemoptysis CARDIOVASCULAR: Denies chest pain or pressure. RESPIRATORY: No shortness of breath. GASTROINTESTINAL: See HPI for pertinent findings HEMATOLOGIC: Denies bleeding disorders. GENITOURINARY: Denies any blood in urine or increased urinary frequency. SKIN: Denies pruitis. Denies rash. PHYSICAL EXAM: VITAL SIGNS: Reviewed GENERAL: Well-developed in no acute distress. HEENT: No sclera icterus. Extraocular movements grossly intact. Moist buccal mucosa. Head is atraumatic, normocephalic. No nasal drainage. ABDOMEN: Soft. Nondistended. Mild tenderness epigastric area NEUROLOGIC: Alert and oriented. Cranial nerves II through XII grossly intact. LABORATORY DATA: WBC 9.3 Hgb 13.6 platelets 401 Sodium 139 potassium 4.0 creatinine 0.75 Lactic acid 1.7 Magnesium 1.9 AST 32 ALT 42 alk phos 120 Troponin negative lipase 55 urinalysis negative for infection Influenza, RSV and Covid not detected IMAGING: Computed tomography scan abdomen and pelvis shows small bowel enteritis Gallbladder ultrasound no acute process HIDA scan low ejection fraction of 17%. Correlate for biliary hypokinesia ASSESSMENT: 1. Epigastric abdominal pain with nausea and vomiting 2. Possible small bowel enteritis 3. Biliary hypokinesia with HIDA scan showing an EF of 17%. Gallbladder ultrasound shows no acute process. No gallstones. PLAN: -Further recommendations forthcoming per surgeon -Continue a low-fat diet -Continue PPI -Continue IV fluids -Continue supportive care Thank you for this consultation Physician Dampener note has been reviewed by physician. Signing provider agrees with the documented findings, assessment, and plan of care. Past Medical History Past Medical History: Asthma Additional Past Medical History / Comment(s): IBS, pleurisy History of Any Multi-Drug Resistant Organisms: None Reported Past Surgical History: Appendectomy, Section Additional Past Surgical History / Comment(s): nose surg. colonoscopy Past Anesthesia/Blood Transfusion Reactions: No Reported Reaction Past Psychological History: No Psychological Hx Reported Smoking Status: Never smoker Past Alcohol Use History: Occasional Past Drug Use History: None Reported - Past Family History Mother Family Medical History: No Reported History Medications and Allergies Home Medications Medication Instructions Recorded Confirmed Type Cetirizine HCl [Zyrtec] 10 mg PO DAILY PRN 05/09/23 05/09/23 History Omeprazole Magnesium [PriLOSEC OTC] 20 mg PO DAILY 05/09/23 05/09/23 History Allergies Allergy/AdvReac Type Severity Reaction Status Date / Time No Known Allergies Allergy Verified 05/09/23 09:45 Surgical - Exam Vital Signs Temp Pulse Resp BP Pulse Ox 97.6 F 65 20 149/92 100 05/09/23 05:23 05/09/23 05:23 05/09/23 05:23 05/09/23 05:23 05/09/23 05:23 Results - Labs 05/09/23 06:30 05/09/23 06:30
--- NOTE | 2023-05-10 16:37 | P.PN ---
Subjective Progress Note Date: 05/10/23 Hospital course Patient is a 33-year-old female with a past medical history of GERD and IBS who presents to the ED with epigastric abdominal pain and intractable nausea and vomiting. Patient states that her symptoms started yesterday. In the ED patient reports that her symptoms have improved. She is able to tolerate her clear liquid diet. Computed tomography scan did show small bowel enteritis. Patient denies eating anything out of the ordinary. Patient's labs were unremarkable. Her UA was negative for UTI. test was negative. Patient was admitted for GI evaluation and symptomatic care. Subjective Patient is seen this afternoon. She states that her pain is better than when she came in. Patient ate almost 50% of her meal and did have some abdominal pain. Patient otherwise feels well. She denied any nausea vomiting. 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 GI ordered a HIDA scan. HIDA scan showed gallbladder with ejection fraction of 17%. GI said no endoscopy procedure. GI signed off. Awaiting for surgical evaluation. Contin ue with IV Dilaudid for pain and IV Compazine for nausea. If cleared by general surgery we'll plan on discharging patient. Patient states that his symptoms is not consistent with IBS. DVT prophylaxis encourage early ambulation CODE STATUS:full code DVT prophylaxis: mechanical Discussed with: Patient, ER Anticipated length of stay < than [address]: home Objective - Vital Signs Vital signs: Vital Signs Temp 98.1 F 05/10/23 15:00 Pulse 75 05/10/23 15:00 Resp 16 05/10/23 15:00 BP 123/78 05/10/23 15:00 Pulse Ox 98 05/10/23 15:00 FiO2 Intake & Output 05/09/23 05/10/23 05/10/23 18:59 06:59 18:59 Weight 87.997 kg Other: Voiding Method Toilet Toilet # Voids 1 2 - Labs CBC & Chem 7: 05/09/23 06:30 05/09/23 06:30
[2023-05-10] MEDS: PROCHLORPERAZINE INJ 10 MG/2 ML VIAL IVP PRN (22:10)
[2023-05-11] MEDS: SODIUM CHLORIDE 0.9% 1,000 ML IV SCH (02:17)
[2023-05-11] MEDS: PANTOPRAZOLE 40 MG/10 ML VIAL IVP SCH (07:18)
[2023-05-11 08:43] VITALS: BP 126/72; PULSE 75; RESP 16; TEMP 98.1
--- NOTE | 2023-05-11 10:17 | P.PN ---
Subjective Progress Note Date: 05/11/23 Principal diagnosis: Abdominal pain Patient doing better today. Says her pain is gone at this time. No diarrhea. Normal bowel movement yesterday. Her appetite is diminished but no nausea or vomiting. She is afebrile. Objective - Vital Signs Vital signs: Vital Signs Temp 98.1 F 05/11/23 07:00 Pulse 75 05/11/23 07:00 Resp 16 05/11/23 07:00 BP 126/72 05/11/23 07:00 Pulse Ox 96 05/11/23 07:00 FiO2 Intake & Output 05/10/23 05/11/23 05/11/23 18:59 06:59 18:59 Other: Voiding Method Toilet Toilet Toilet # Voids 2 2 - Exam Abdomen: Soft, nondistended, nontender - Labs CBC & Chem 7: 05/09/23 06:30 05/09/23 06:30 Assessment and Plan (1) Abdominal pain Narrative/Plan: 33-year-old female with epigastric abdominal pain that has resolved. Studies and clinical scenario discussed in detail with the patient. We discussed optio ns on how to proceed. As the patient is feeling better and her symptoms are questionable for biliary source Will plan discharge. Outpatient follow-up with myself and GI advise. The patient has recurrent epigastric pain likely would proceed with cholecystectomy at that time. Patient is agreeable. Current Visit: Yes Status: Acute Code(s): R10.9 - UNSPECIFIED ABDOMINAL PAIN SNOMED Code(s): 06584759
--- NOTE | 2023-05-11 11:22 | P.DS ---
Providers Date of admission: 05/09/23 10:20 Attending physician: Negro Jaimes MD Consults: 05/09/23 11:39 Consult Physician Routine Consulting Provider: Regla Fleming Consult Reason/Comments: intractable nausea and vomiting Do you want consulting provider notified?: Yes 05/10/23 14:12 Consult Physician Routine Consulting Provider: Beau Maldonado Consult Reason/Comments: abnormal HIDA Do you want consulting provider notified?: Already Contacted Primary care physician: Cherelle [facility] Course: Discharge Diagnosis: Small bowel enteritis Abnormal HIDA scan GERD IBS Hospital Course: Patient is a 33-year-old female with a past medical history of GERD and IBS who presents to the ED with epigastric abdominal pain and intractable nausea and vomiting. Patient states that her symptoms started yesterday. In the ED patient reports that her symptoms have improved. She is able to tolerate her clear liquid diet. Computed tomography scan did show small bowel enteritis. Patient denies eating anything out of the ordinary. Patient's labs were unremarkable. Her UA was negative for UTI. test was negative. [place]rett dia was admitted for GI evaluation and symptomatic care. Overnight patient continued to have some nausea and epigastric pain. So GI ordered a HIDA scan. HIDA scan was positive for gallbladder with ejection fraction of 17%. GI then signed off. Patient was seen by general surgery who said that her source for nausea and epigastric pain is questionable for biliary and also since patient's symptoms improved recommended outpatient follow-up with them as well as with GI. At the time of discharge patient feeling better and looking forward to going home. Patient seen and examined at bedside.[] Vital signs reviewed and stable. General: [non toxic], [no distress], [appears at stated age] Derm: [warm], [dry] Head: [atraumatic], [normocephalic], [symmetric] Eyes: [EOMI], [no lid lag], [anicteric sclera] Mouth: [no lip lesion], [mucus membranes moist] Cardiovascular: [S1S2 reg], [no murmur], [positive posterior tibial pulse bilateral], Lungs: [CTA bilateral], [no rhonchi, no rales] , [no accessory muscle use] Abdominal: [soft], [ nontender to palpation], [no guarding], [no appreciable organomegaly] Ext: [no gross muscle atrophy], [no edema], [no contractures] Neuro: [ CN II-XI grossly intact], [no focal neuro deficits] Psych: [Alert], [oriented], [appropriate affect] A total of [33] minutes of time were spent preparing this complex discharge summary . Patient Condition at Discharge: Stable Plan - Discharge Summary Discharge Rx Participant: No New Discharge Prescriptions: Continue Omeprazole Magnesium [PriLOSEC OTC] 20 mg PO DAILY Cetirizine HCl [Zyrtec] 10 mg PO DAILY PRN PRN Reason: Allergy Symptoms Discharge Medication List Cetirizine HCl [Zyrtec] 10 mg PO DAILY PRN 05/09/23 [History] Omeprazole Magnesium [PriLOSEC OTC] 20 mg PO DAILY 05/09/23 [History] Follow up Appointment(s)/Referral(s): Beau Maldonado MD [Medical Doctor] - 2 Weeks Regla Fleming MD [STAFF PHYSICIAN] - 3 Weeks Cherelle Coppola MD [Primary Care Provider] - 1-2 days Discharge Disposition: HOME SELF-CARE
== END 2023-05-11 11:47 | disposition home or self-care (01) ==
LOC: EC 05:22 → 6NMEDSUR 10:20
PROVIDERS: ADMIT Student in an Organized Health Care Education/Training Program; ATTEND Student in an Organized Health Care Education/Training Program
DX: K52.9 Noninfective gastroenteritis and colitis, unspecified (principal); R93.2 Abnormal findings on diagnostic imaging of liver and biliary tract; K21.9 Gastro-esophageal reflux disease without esophagitis; J45.909 Unspecified asthma, uncomplicated; Z20.822 Contact with and (suspected) exposure to COVID-19; Z79.899 Other long term (current) drug therapy
CPT/HCPCS: 96376 ×3; 96361; 96374; 96375; 99285; 36415; 93005; 80053; 82150; 83605; 83690; 83735; 84484; 85025; 81003; 81025; 87636; 76705; 74177; 78227; G0378 ×3; A9537; J2270; J0780 ×2; J2405; J2805; C9113 ×3; J1170; Q9967

== ENCOUNTER → 2023-05-27 | Outpatient (CLI) | payer BC | END | disposition home or self-care (01) | LOC: LABWHC1 10:20 | PROVIDERS: ATTEND Internal Medicine Critical Care Medicine | DX: R09.1 Pleurisy (principal) | CPT/HCPCS: 36415; 85652; 86038; 86255; 86431 ==

== ENCOUNTER 2023-08-29 19:41 | Emergency (ER) | payer BC ==
[2023-08-29 20:10] VITALS: TEMP 98.1
[2023-08-29] MEDS ORDERED: KETOROLAC 15 MG/ML 1 ML VIAL IVP STA (21:34)
--- NOTE | 2023-08-29 22:02 | XR ---
EXAMINATION: XR chest 2V: 08/29/2023 9:56 PM CLINICAL INDICATION: chest pain TECHNIQUE: Departmental protocol COMPARISON: 04/24/2023 FINDINGS: The lungs are clear. The pleural spaces are negative. The cardiac silhouette is not enlarged. The remainder of the mediastinal silhouette is unremarkable. The skeletal structures and soft tissues are negative for acute findings. IMPRESSION: No acute process.
[2023-08-29 22:11] LABS: ALT 17 U/L (4-34); African American GFR (CKD) >90 (>60 ml/min/1.73 sqM); Albumin 4.5 g/dL (3.5-5.0); Anion Gap 12 mmol/L; Blood Urea Nitrogen 14 mg/dL (7-17); Calcium 9.8 mg/dL (8.4-10.2); Carbon Dioxide 23 mmol/L (22-30); Chloride 103 mmol/L (98-107); Glucose 92 mg/dL (74-99); Non-African American GFR(CKD) >90 (>60 ml/min/1.73 sqM); Sodium 138 mmol/L (137-145); Total Bilirubin 0.5 mg/dL (0.2-1.3); Total Protein 8.1 g/dL (6.3-8.2)
[2023-08-29 22:12] LABS: AST 22 U/L (14-36); Alkaline Phosphatase 95 U/L (38-126)
[2023-08-29 22:56] LABS: Basophils % (A) 0 %; Eosinophils # (A) 0.3 k/uL (0-0.7); Eosinophils % (A) 3 %; HCT 38.6 % (34.0-46.0); HGB 12.7 gm/dL (11.4-16.0); Lymphocytes # (A) 2.6 k/uL (1.0-4.8); Lymphocytes % (A) 24 %; MCV 78.8 fL (80.0-100.0); Mean Platelet Volume 8.1; Monocytes # (A) 0.6 k/uL (0-1.0); Monocytes % (A) 5 %; Neutrophils # (A) 7.4 k/uL (1.3-7.7); Neutrophils % (A) 67 %; Platelet Count 380 k/uL (150-450); RDW 14.3 % (11.5-15.5)
[2023-08-29] MEDS ORDERED: MORPHINE SULFATE 4 MG/ML SYRINGE IV STA (22:57)
--- NOTE | 2023-08-29 23:02 | ED ---
SOB HPI - General Chief Complaint: Shortness of Breath Stated Complaint: hard time breathing Time Seen by Provider: 08/29/23 21:07 Source: patient Mode of arrival: ambulatory Limitations: no limitations - History of Present Illness Initial Comments: This patient is 33-year-old woman who presents to have evaluation of chest pain. She states the pain is sharp. She states that it occurs when she takes deep breath. She states that when she's not taking deep breath there is really no pain. She has not noted other worsening or relieving factors. No associated fever, cough, sputum. No hemoptysis. No history of DVT or PE. MD Complaint: shortness of breath, chest pain -: hour(s) Severity: moderate Quality: aching Consistency: intermittent Improves With: nothing Worsens With: inspiration Associated Symptoms: denies other symptoms Treatments Prior to Arrival: none - Related Data Home Oxygen Therapy: No Home Medications Medication Instructions Recorded Confirmed Cetirizine HCl [Zyrtec] 10 mg PO DAILY PRN 05/09/23 05/09/23 Omeprazole Magnesium [PriLOSEC OTC] 20 mg PO DAILY 05/09/23 05/09/23 Previous Rx's Medication Instructions Recorded Famotidine [Pepcid] 20 mg PO BID #28 tablet 06/17/23 HYDROcodone/APAP 5-325MG [[place] 1 tab PO Q4HR PRN 3 Days #18 tab 08/29/23 5-325] predniSONE 60 mg PO DAILY #30 tab 08/29/23 Allergies Allergy/AdvReac Type Severity Reaction Status Date / Time No Known Allergies Allergy Verified 08/29/23 20:07 Review of Systems ROS Statement: Those systems with pertinent positive or pertinent negative responses have been documented in the HPI. ROS Other: All systems not noted in ROS Statement are negative. Constitutional: Denies: fever, chills Respiratory: Reports: dyspnea. Denies: cough, wheezes, hemoptysis Cardiovascular: Reports: chest pain. Denies: palpitations, orthopnea, edema, syncope Gastrointestinal: Denies: abdominal pain, nausea, vomiting Genitourinary: Denies: dysuria, hematuria, abnormal menses Musculoskeletal: Denies: back pain Skin: Denies: rash Neurological: Denies: headache, weakness, numbness Past Medical History Past Medical History: Asthma Additional Past Medical History / Comment(s): IBS, pleurisy History of Any Multi-Drug Resistant Organisms: None Reported Past Surgical History: Appendectomy, Section Additional Past Surgical History / Comment(s): nose surg. colonoscopy Past Anesthesia/Blood Transfusion Reactions: No Reported Reaction Past Psychological History: No Psychological Hx Reported Smoking Status: Never smoker Past Alcohol Use History: Occasional Past Drug Use History: None Reported - Past Family History Mother Family Medical History: No Reported History General Exam Limitations: no limitations General appearance: alert, in no apparent distress Head exam: Present: atraumatic, normocephalic Eye exam: Present: normal appearance Neck exam: Present: normal inspection Respiratory exam: Present: normal lung sounds bilaterally. Absent: respiratory distress, wheezes, rales, rhonchi, stridor, chest wall tenderness, accessory muscle use Cardiovascular Exam: Present: regular rate, normal rhythm, normal heart sounds. Absent: systolic murmur, diastolic murmur, rubs, gallop GI/Abdominal exam: Present: soft. Absent: distended, tenderness, guarding, rebound, rigid, mass Extremities exam: Present: normal inspection, normal capillary refill. Absent: pedal edema, calf tenderness Back exam: Present: normal inspection. Absent: CVA tenderness (R), CVA tenderness (L) Neurological exam: Present: alert Skin exam: Present: warm, dry, intact, normal color. Absent: rash Course Vital Signs 08/29/23 08/29/23 08/29/23 20:04 21:50 23:46 Temperature 98.1 F Pulse Rate 78 64 Respiratory 22 20 18 Rate Blood Pressure 109/70 119/80 O2 Sat by Pulse 99 97 Oximetry Medical Decision Making - Medical Decision Making The patient had chest x-ray which I interpreted as negative for acute infiltrate, pneumothorax, congestive heart failure Was pt. sent in by a medical professional or institution (, PA, LETTUCE CUTTER, urgent care, hospital, or detention...) When possible be specific @ -[No] Did you speak to anyone other than the patient for history (EMS, parent, family, police, friend...)? What history was obtained from this source @ -[No] Did you review nursing and triage notes (agree or disagree)? Why? @ -[I reviewed and agree with nursing and triage notes] Were old charts reviewed (outside hosp., previous admission, EMS record, old EKG, old radiological studies, urgent care reports/EKG's, detention records)? Report findings @ -[No old charts were reviewed] Differential Diagnosis (chest pain, altered mental status, abdominal pain women, abdominal pain men, vaginal bleeding, weakness, fever, dyspnea, syncope, headache, dizziness, GI bleed, back pain, seizure, CVA, palpatations, mental health, musculoskeletal)? @ -[Differential Chest Pain: Stable Angina, Unstable Angina, STEMI, NSTEMI Aortic Dissection, Pneumothorax, Musculoskeletal, Esophageal Spasm GERD, Cholecystitis, Pancreatitis, Zoster, this is not meant to be an all-inclusive list. EKG interpreted by me (3pts min.). @ -[I interpreted As above] X-rays interpreted by me (1pt min.). @ -[I interpreted as above CT interpreted by me (1pt min.). @ -[None done] U/S interpreted by me (1pt. min.). @ -[None done] What testing was considered but not performed or refused? (CT, X-rays, U/S, labs)? Why? @ -[None] What meds were considered but not given or refused? Why? @ -[None] Did you discuss the management of the patient with other professionals (maicol suefelola i.e. , PA, LETTUCE CUTTER, lab, RT, psych nurse, social services assistant, terrazzo worker helper, teacher, police officer booking, case worker)? Give summary @ -[No] Was smoking cessation discussed for >3mins.? @ -[No] Was critical care preformed (if so, how long)? @ -[No] Were there social determinants of health that impacted care today? How? (Homelessness, low income, unemployed, alcoholism, drug addiction, tr ansportation, low edu. Level, literacy, decrease access to med. care, senior living, rehab)? @ -[No] Was there de-escalation of care discussed even if they declined (Discuss DNR or withdrawal of care, Hospice)? DNR status @ -[No] What co-morbidities impacted this encounter? (DM, HTN, Smoking, COPD, CAD, Cancer, CVA, ARF, Chemo, Hep., AIDS, mental health diagnosis, sleep apnea, morbid obesity)? @ -[None] Was patient admitted / discharged? Hospital course, mention meds given and route, prescriptions, significant lab abnormalities, going to OR and other pertinent info. @ -[Patient is 33-year-old woman with pleuritic chest pain. The patient's workup is benign, including negative d-dimer. We discussed appropriate further care and follow-up as well as return parameters. Patient to take nonsteroidal and have close follow-up. Undiagnosed new problem with uncertain prognosis? @ -[No] Drug Therapy requiring intensive monitoring for toxicity (Heparin, Nitro, Insulin, Cardizem)? @ -[No] Were any procedures done? @ -[No] Diagnosis/symptom? @ -[Acute pleuritis Acute, or Chronic, or Acute on Chronic? @ -[Acute Uncomplicated (without systemic symptoms) or Complicated (systemic symptoms)? @ -[Complicated Side effects of treatment? @ -[No] Exacerbation, Progression, or Severe Exacerbation? @ -[No] Poses a threat to life or bodily function? How? (Chest pain, [place], [place], pneumonia, PE, COPD, DKA, ARF, appy, cholecystitis, CVA, Diverticulitis, Homicidal, Suicidal, threat to staff... and all critical care pts) @ -[No] - Lab Data Result diagrams: 08/29/23 21:40 08/29/23 21:40 Lab Results 08/29/23 08/29/23 08/29/23 Range/Units 21:40 21:40 21:40 WBC 11.0 H (3.8-10.6) k/uL RBC 4.90 (3.80-5.40) m/uL Hgb 12.7 (11.4-16.0) gm/dL Hct 38.6 (34.0-46.0) % MCV 78.8 L (80.0-100.0) fL MCH 26.0 (25.0-35.0) pg MCHC 33.0 (31.0-37.0) g/dL RDW 14.3 (11.5-15.5) % Plt Count 380 (150-450) k/uL MPV 8.1 Neutrophils % 67 % Lymphocytes % 24 % Monocytes % 5 % Eosinophils % 3 % Basophils % 0 % Neutrophils # 7.4 (1.3-7.7) k/uL Lymphocytes # 2.6 (1.0-4.8) k/uL Monocytes # 0.6 (0-1.0) k/uL Eosinophils # 0.3 (0-0.7) k/uL Basophils # 0.0 (0-0.2) k/uL D-Dimer 0.24 (<0.60) mg/L FEU Sodium 138 (137-145) mmol/L Potassium 4.0 (3.5-5.1) mmol/L Chloride 103 (98-107) mmol/L Carbon Dioxide 23 (22-30) mmol/L Anion Gap 12 mmol/L BUN 14 (7-17) mg/dL Creatinine 0.71 (0.52-1.04) mg/dL Est GFR (CKD-EPI)AfAm >90 (>60 ml/min/1.73 sqM) Est GFR (CKD-EPI)NonAf >90 (>60 ml/min/1.73 sqM) Glucose 92 (74-99) mg/dL Calcium 9.8 (8.4-10.2) mg/dL Total Bilirubin 0.5 (0.2-1.3) mg/dL AST 22 (14-36) U/L ALT 17 (4-34) U/L Alkaline Phosphatase 95 (38-126) U/L Troponin I (0.000-0.034) ng/mL Total Protein 8.1 (6.3-8.2) g/dL Albumin 4.5 (3.5-5.0) g/dL 08/29/23 Range/Units 21:40 WBC (3.8-10.6) k/uL RBC (3.80-5.40) m/uL Hgb (11.4-16.0) gm/dL Hct (34.0-46.0) % MCV (80.0-100.0) fL MCH (25.0-35.0) pg MCHC (31.0-37.0) g/dL RDW (11.5-15.5) % Plt Count (150-450) k/uL MPV Neutrophils % % Lymphocytes % % Monocytes % % Eosinophils % % Basophils % % Neutrophils # (1.3-7.7) k/uL Lymphocytes # (1.0-4.8) k/uL Monocytes # (0-1.0) k/uL Eosinophils # (0-0.7) k/uL Basophils # (0-0.2) k/uL D-Dimer (<0.60) mg/L FEU Sodium (137-145) mmol/L Potassium (3.5-5.1) mmol/L Chloride (98-107) mmol/L Carbon Dioxide (22-30) mmol/L Anion Gap mmol/L BUN (7-17) mg/dL Creatinine (0.52-1.04) mg/dL Est GFR (CKD-EPI)AfAm (>60 ml/min/1.73 sqM) Est GFR (CKD-EPI)NonAf (>60 ml/min/1.73 sqM) Glucose (74-99) mg/dL Calcium (8.4-10.2) mg/dL Total Bilirubin (0.2-1.3) mg/dL AST (14-36) U/L ALT (4-34) U/L Alkaline Phosphatase (38-126) U/L Troponin I <0.012 (0.000-0.034) ng/mL Total Protein (6.3-8.2) g/dL Albumin (3.5-5.0) g/dL - EKG Data -: EKG Interpreted by Pa EKG shows normal: sinus rhythm (With sinus arrhythmia), axis (Normal), intervals (Normal), QRS complexes (Normal), ST-T waves (Normal) Rate: normal (Rate 72 bpm) Disposition Clinical Impression: Pleuritis Disposition: HOME SELF-CARE Condition: Good Instructions (If sedation given, give patient instructions): Pleurisy (ED) Prescriptions: HYDROcodone/APAP 5-325MG [[place] 5-325] 1 tab PO Q4HR PRN 3 Days #18 tab PRN Reason: Pain predniSONE 60 mg PO DAILY #30 tab Is patient prescribed a controlled substance at d/c from ED?: No Referrals: Cherelle Coppola MD [Primary Care Provider] - 1-2 days Forms: Work/School Release
[2023-08-29] MEDS ORDERED: predniSONE 20 MG TAB PO STA (23:51)
[2023-08-30 00:05] VITALS: BP 119/80; PULSE 64; RESP 18
== END 2023-08-30 00:04 | disposition home or self-care (01) ==
LOC: EC 19:41
DX: R09.1 Pleurisy (principal); J45.909 Unspecified asthma, uncomplicated
CPT/HCPCS: 36415; 93005; 85379; 80053; 84484; 85025; 71046; 99285; 96374; 96375; J2270; J1885; J7512

== ENCOUNTER 2023-11-10 20:45 | Emergency (ER) | payer BC ==
[2023-11-10 21:00] VITALS: BP 137/88; PULSE 68; RESP 18; TEMP 98.2
[2023-11-10] MEDS ORDERED: PROPARACAINE 0.5% OPHTH DROPS 15 ML BTL RIGHT EYE STA (21:05)
[2023-11-10] MEDS ORDERED: FLUORESCEIN STRIPS 1 MG STRIP RIGHT EYE ONE (21:05)
[2023-11-10] MEDS ORDERED: TOBRAMYCIN 0.3% OPHTH DROPS 5 ML BTL RIGHT EYE STA (21:19)
[2023-11-10] MEDS ORDERED: IBUPROFEN 600 MG TAB PO STA (21:20)
--- NOTE | 2023-11-10 21:22 | ED ---
Eye Problem HPI - General Chief complaint: Eye Problems Stated complaint: Right eye issue Time Seen by Provider: 11/10/23 21:05 Source: patient, RN notes reviewed Mode of arrival: ambulatory Limitations: no limitations - History of Present Illness Initial comments: 33-year-old female presents emergency Department chief complaint of right eye pain, redness. Patient states she has no visual disturbance. She states that he feels very dry, she has photosensitivity. Patient denies any trauma she states she wears glasses. Patient states she does see Dr. Bashir on a regular routine - Related Data Home Medications Medication Instructions Recorded Confirmed Cetirizine HCl [Zyrtec] 10 mg PO DAILY PRN 05/09/23 05/09/23 Omeprazole Magnesium [PriLOSEC OTC] 20 mg PO DAILY 05/09/23 05/09/23 Previous Rx's Medication Instructions Recorded Famotidine [Pepcid] 20 mg PO BID #28 tablet 06/17/23 HYDROcodone/APAP 5-325MG [[place] 1 tab PO Q4HR PRN 3 Days #18 tab 08/29/23 5-325] predniSONE 60 mg PO DAILY #30 tab 08/29/23 Allergies Allergy/AdvReac Type Severity Reaction Status Date / Time No Known Allergies Allergy Verified 11/10/23 20:52 Review of Systems ROS Statement: Those systems with pertinent positive or pertinent negative responses have been documented in the HPI. ROS Other: All systems not noted in ROS Statement are negative. Past Medical History Past Medical History: Asthma Additional Past Medical History / Comment(s): IBS, pleurisy History of Any Multi-Drug Resistant Organisms: None Reported Past Surgical History: Appendectomy, Section Additional Past Surgical History / Comment(s): nose surg. colonoscopy Past Anesthesia/Blood Transfusion Reactions: No Reported Reaction Past Psychological History: No Psychological Hx Reported Smoking Status: Never smoker Past Alcohol Use History: Occasional Past Drug Use History: None Reported - Past Family History Mother Family Medical History: No Reported History General Exam Limitations: no limitations General appearance: alert, in no apparent distress Head exam: Present: atraumatic, normocephalic, normal inspection Eye exam: Present: normal appearance, PERRL, EOMI, other (There is no fluorescein uptake there is some clearing around the iris). Absent: scleral icterus, conjunctival injection, periorbital swelling Expanded Eyelids: Normal Inspection: Bilateral Pupils: Regular, Round: Bilateral, Reactive: Bilateral Sclera/Conjunctival: Normal Inspection: Left, Injection: Right Anterior chamber: Normal Inspection: Bilateral Posterior chamber: Deferred: Bilateral Visual acuity (R) = 20/: 40 Visual acuity (L) = 20/: 40 IOP (R) in mmH IOP (L) in mmH IOP measured with: Tonopen Course Vital Signs 11/10/23 20:52 Temperature 98.2 F Pulse Rate 68 Respiratory 18 Rate Blood Pressure 137/88 O2 Sat by Pulse 98 Oximetry Medical Decision Making - Medical Decision Making Was pt. sent in by a medical professional or institution (, NAYA, RAG ROOM SUPERVISOR, urgent care, hospital, or fci...) When possible be specific @ -No Did you speak to anyone other than the patient for history (EMS, parent, family, police, friend...)? What history was obtained from this source @ -No Did you review nursing and triage notes (agree or disagree)? Why? @ -I reviewed and agree with nursing and triage notes Were old charts reviewed (outside hosp., previous admission, EMS record, old EKG, old radiological studies, urgent care reports/EKG's, fci records)? Report findings @ -No old charts were reviewed Differential Diagnosis (chest pain, altered mental status, abdominal pain women, abdominal pain men, vaginal bleeding, weakness, fever, dyspnea, syncope, headache, dizziness, GI bleed, back pain, seizure, CVA, palpatations, mental health, musculoskeletal)? @ -Iritis, uveitis, corneal abrasion, conjunctivitis, this list is not all- inclusive EKG interpreted by me (3pts min.). @ -None X-rays interpreted by me (1pt min.). @ -None done CT interpreted by me (1pt min.). @ -None done U/S interpreted by me (1pt. min.). @ -None done What testing was considered but not performed or refused? (CT, X-rays, U/S, labs)? Why? @ -None What meds were considered but not given or refused? Why? @ -None Did you discuss the management of the patient with other professionals (professionals i.e. NAYA Nettles, RAG ROOM SUPERVISOR, lab, RT, psych nurse, social research assistant, building trades teacher, teacher, corporate responsibility officer, adult protective caseworker)? Give summary @ -No Was smoking cessation discussed for >3mins.? @ -No Was critical care preformed (if so, how long)? @ -No Were there social determinants of health that impacted care today? How? (Homelessness, low income, unemployed, alcoholism, drug addiction, transp ortation, low edu. Level, literacy, decrease access to med. care, [facility]p, rehab)? @ -No Was there de-escalation of care discussed even if they declined (Discuss DNR or withdrawal of care, Hospice)? DNR status @ -No What co-morbidities impacted this encounter? (DM, HTN, Smoking, COPD, CAD, Cancer, CVA, ARF, Chemo, Hep., AIDS, mental health diagnosis, sleep apnea, morbid obesity)? @ -None Was patient admitted / discharged? Hospital course, mention meds given and route, prescriptions, significant lab abnormalities, going to OR and other pertinent info. @ -Discharge patient in no fluorescein uptake with was lamp, patient complete relief of her symptoms with proparacaine. Believe this is a former of uveitis possible iritis she may require steroids but will follow-up with ophthalmology tomorrow patient was given antibiotic eyedrops concerning for possible infection Undiagnosed new problem with uncertain prognosis? @ -No Drug Therapy requiring intensive monitoring for toxicity (Heparin, Nitro, Insulin, Cardizem)? @ -No Were any procedures done? @ -No Diagnosis/symptom? @ -Uveitis/iritis Acute, or Chronic, or Acute on Chronic? @ -Acute Uncomplicated (without systemic symptoms) or Complicated (systemic symptoms)? @ -Uncomplicated Side effects of treatment? @ -No Exacerbation, Progression, or Severe Exacerbation? @ -No Poses a threat to life or bodily function? How? (Chest pain, [place], [place], pneumonia, PE, COPD, DKA, ARF, appy, cholecystitis, CVA, Diverticulitis, Homicidal, Suicidal, threat to staff... and all critical care pts) @ -No Disposition Clinical Impression: Uveitis Disposition: HOME SELF-CARE Condition: Stable Instructions (If sedation given, give patient instructions): Iritis (ED) Additional Instructions: Please follow-up with Dr. Bashir or on-call insurance sales agent for the next 24-48 hrs. Please return to the Emergency Department if symptoms worsen or any other concerns. Is patient prescribed a controlled substance at d/c from ED?: No Referrals: Cherelle Coppola MD [Primary Care Provider] - 1-2 days Ignacio Christian MD [STAFF PHYSICIAN] - 1-2 days Time of Disposition: 21:22
== END 2023-11-10 21:29 | disposition home or self-care (01) ==
LOC: EC 20:45
DX: H44.131 Sympathetic uveitis, right eye (principal); J45.909 Unspecified asthma, uncomplicated
CPT/HCPCS: 99283

== ENCOUNTER 2023-12-21 09:51 | Emergency (ER) | payer BC ==
[2023-12-21] MEDS ORDERED: LIDOCAINE 4% PATCH TOPICAL ONE (10:07)
[2023-12-21] MEDS ORDERED: HYDROcodone/APAP 7.5-325MG 1 EACH TAB PO ONE (10:07)
[2023-12-21] MEDS ORDERED: MELOXICAM 7.5 MG TAB PO ONE (10:14)
--- NOTE | 2023-12-21 10:16 | ED ---
Neck Injury/Pain HPI - General Chief Complaint: Neck Pain/Injury Stated Complaint: Neck pain Time Seen by Provider: 12/21/23 09:58 Source: patient, RN notes reviewed Mode of arrival: ambulatory Limitations: no limitations - History of Present Illness Initial Comments: This is a 33-year-old female who presents to the emergency department for neck pain. States that she has had pain to the base of the back of her neck for the last 2 months. Denies any known injuries. She went to urgent care a couple of weeks after it began, and states that they put her on steroids, muscle relaxants, and antibiotics, however she did not have any relief. She is alternating with ibuprofen and Tylenol regularly, but has still not had any improvement in symptoms. States that this is starting to affect her work and she is having difficulty turning her head. Using her right arm also exacerbates pain. MD Complaint: neck pain - Related Data Home Medications Medication Instructions Recorded Confirmed Cetirizine HCl [Zyrtec] 10 mg PO DAILY PRN 05/09/23 05/09/23 Omeprazole Magnesium [PriLOSEC OTC] 20 mg PO DAILY 05/09/23 05/09/23 Previous Rx's Medication Instructions Recorded Famotidine [Pepcid] 20 mg PO BID #28 tablet 06/17/23 HYDROcodone/APAP 5-325MG [[place] 1 tab PO Q4HR PRN 3 Days #18 tab 08/29/23 5-325] predniSONE 60 mg PO DAILY #30 tab 08/29/23 Capsaicin Cream [Trixaicin Cream] 1 applic TOPICAL QID PRN #60 gm 12/21/23 Meloxicam [Mobic] 15 mg PO DAILY PRN #30 tab 12/21/23 methocarbamoL [Robaxin-750] 1,500 mg PO TID PRN #30 tab 12/21/23 Allergies Allergy/AdvReac Type Severity Reaction Status Date / Time No Known Allergies Allergy Verified 11/10/23 20:52 Review of Systems ROS Statement: Those systems with pertinent positive or pertinent negative responses have been documented in the HPI. ROS Other: All systems not noted in ROS Statement are negative. 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 colonoscopy Past Anesthesia/Blood Transfusion Reactions: No Reported Reaction Past Psychological History: No Psychological Hx Reported Smoking Status: Never smoker Past Alcohol Use History: Occasional Past Drug Use History: None Reported - Past Family History Mother Family Medical History: No Reported History General Exam Limitations: no limitations General appearance: alert, in no apparent distress Head exam: Present: atraumatic, normocephalic, normal inspection Neck exam: Present: tenderness (Posterior cervical spine), full ROM Respiratory exam: Present: normal lung sounds bilaterally. Absent: respiratory distress, wheezes, rales, rhonchi, stridor Cardiovascular Exam: Present: regular rate, normal rhythm, normal heart sounds. Absent: systolic murmur, diastolic murmur, rubs, gallop, clicks Neurological exam: Present: alert, oriented X3, CN II-XII intact Psychiatric exam: Present: normal affect, normal mood Skin exam: Present: warm, dry, intact, normal color. Absent: rash Course Vital Signs 12/21/23 12/21/23 09:55 12:02 Temperature 98.2 F Pulse Rate 75 74 Respiratory 16 18 Rate Blood Pressure 138/85 134/80 O2 Sat by Pulse 98 98 Oximetry Medical Decision Making - Medical Decision Making This is a 33 year old female who presents to the emergency department for neck pain. Was pt. sent in by a medical professional or institution? @ -No Did you speak to anyone other than the patient for history? @ -No Did you review nursing and triage notes? @ -Yes, and I agree, it is accurate with regards to the patient's symptoms. Were old charts reviewed? @ -No Differential Diagnosis? @ -Differential Neck Pain: Fracture, dislocation, contusion, strain, DDD, disc herniation, this is not meant to be an all-inclusive list. EKG interpreted by me (3pts min.)? @ -Not obtained X-rays interpreted by me (1pt min.)? @ -Not obtained CT interpreted by me (1pt min.)? @ -CT scan of the c-spine obtained. My interpretation identifies no acute fractures. U/S interpreted by me (1pt. min.)? @ -Not obtained What testing was considered but not performed? (CT, X-rays, U/S, labs)? Why? @ -None What meds were considered but not given? Why? @ -Not obtained Did you discuss the management of the patient with other professionals? @ -No Did you reconcile home meds? @ -No Was smoking cessation discussed for >3mins.? @ -No Was critical care preformed (if so, how long)? @ -No Were there social determinants of health that impacted care today? How? (Homelessness, low income, unemployed, alcoholism, drug addiction, transportation, low edu. Level, literacy, decrease access to med. care, penitentiary, rehab)? @ -No Was there de-escalation of care discussed even if they declined? (Discuss DNR or withdrawal of care, Hospice)? @ -No What co-morbidities impacted this encounter? (DM, HTN, Smoking, COPD, CAD, Cancer, CVA, Hep., AIDS, mental health diagnosis, sleep apnea, morbid obesity)? @ -None Was patient admitted / discharged? @ -Discharged. CT scan of the c-spine obtained revealing no acute process to account for the patient's symptoms. Patient treated with Mobic, Robaxin, [place], and a Lidocaine patch in the emergency department with some relief in symptoms. I did offer stronger IM or IV medication, however the patient declined. Discussed with the patient that the cause of her pain is not entirely clear. The reproducible and positional nature of it suggests more of a muscular issue. She was given a prescription for Mobic to try in place of the ibuprofen to see if that offers her any more benefit. She was also given a prescription for Capsaicin cream as an alternative option as well as Robaxin, as she is out of muscle relaxants at this point. Otherwise advised follow-up with her primary care provider for reevaluation. Undiagnosed new problem with uncertain prognosis? @ -None Drug Therapy requiring intensive monitoring for toxicity (Heparin, Nitro, Insulin, Cardizem)? @ -None Were any procedures done? @ -None Diagnosis/symptom? @ -Neck pain Acute, or Chronic, or Acute on Chronic? @ -Chronic Uncomplicated (without systemic symptoms) or Complicated (systemic symptoms)? @ -Uncomplicated Side effects of treatment? @ -None Exacerbation, Progression, or Severe Exacerbation] @ -Progression Poses a threat to life or bodily function? @ -The pain is having an impact on her ability to function. Return precautions reviewed in depth, the patient is instructed to return to the emergency department with any new, worsening, or concerning symptoms. Patient verbalized understanding. This case was discussed in detail with the attending ED physician, Dr. Lucia. Presentation, findings, and treatment plan discussed in detail as well. - Radiology Data Radiology results: report reviewed, image reviewed Disposition Clinical Impression: Neck pain Disposition: HOME SELF-CARE Instructions (If sedation given, give patient instructions): Neck Pain (ED) Additional Instructions: Return to the emergency department with any new, worsening, or concerning symptoms. Take the Mobic consistently once daily instead of taking ibuprofen. You may continue to take Tylenol. See if this combination is effective, if not, you can return to the ibuprofen with Tylenol.. Avoid taking ibuprofen and Mobic together. You can take the Robaxin as 1-2 tablets up to 3-4 times daily. Be aware that this may make you drowsy. You can try applying the capsaicin cream 3-4 times daily. This may cause a temporary burning sensation, if this is too bothersome you can stop using it. Contact the orthopedic provider listed below for a follow-up appointment and reevaluation of symptoms. Follow up with your primary care provider in 1-2 days. Prescriptions: Meloxicam [Mobic] 15 mg PO DAILY PRN #30 tab PRN Reason: Pain methocarbamoL [Robaxin-750] 1,500 mg PO TID PRN #30 tab PRN Reason: Pain Capsaicin Cream [Trixaicin Cream] 1 applic TOPICAL QID PRN #60 gm PRN Reason: Pain Is patient prescribed a controlled substance at d/c from ED?: No Referrals: Cherelle Coppola MD [Primary Care Provider] - 1-2 days Meagan Lobato DO [Doctor of Osteopathic Medicine] - 1-2 days Time of Disposition: 11:44
[2023-12-21 10:20] VITALS: TEMP 98.2
[2023-12-21] MEDS ORDERED: methocarbamoL 750 MG TAB PO ONE (10:30)
--- NOTE | 2023-12-21 10:35 | CT ---
EXAMINATION TYPE: CT cervical spine wo con DATE OF EXAM: 12/21/2023 COMPARISON: None HISTORY: Neck pain/ stiffness CT DLP: 551.7 mGycm CONTRAST: None CT of the cervical spine is performed in the axial plane at 2 mm thick sections. Reconstructed image s in the coronal, and sagittal plane are reviewed on the computer. No acute fractures are evident. Vertebral body alignment is normal. Disc heights are preserved. Vertebral body heights are preserved. No spinal canal stenosis is evident No neural foraminal stenosis is evident. Note is made of mucosal thickening within the left sphenoid sinus. A retention cyst within the left m axillary sinus. Mild mucosal thickening right maxillary sinus. IMPRESSION: 1. No acute osseous abnormality cervical spine. 2. Clinical consideration for sphenoid sinusitis.
[2023-12-21] MEDS ORDERED: traMADol 50 MG STARTER PACK 3 TAB BTL PO STA (11:40)
[2023-12-21 12:23] VITALS: BP 134/80; PULSE 74; RESP 18
== END 2023-12-21 12:03 | disposition home or self-care (01) ==
LOC: EC 09:51
DX: M54.2 Cervicalgia (principal); J45.909 Unspecified asthma, uncomplicated
CPT/HCPCS: 72125; 99284

== ENCOUNTER 2024-02-09 19:02 | Emergency (ER) | payer BC ==
[2024-02-09 19:24] VITALS: TEMP 98.5
[2024-02-09] MEDS: KETOROLAC 15 MG/ML 1 ML VIAL IVP STA (19:56)
[2024-02-09] MEDS: SODIUM CHLORIDE 0.9% 1,000 ML IV STA (19:57)
[2024-02-09] MEDS: ONDANSETRON 4 MG/2 ML VIAL IVP STA (19:58)
[2024-02-09] MEDS: PANTOPRAZOLE 40 MG/10 ML VIAL IVP STA (20:01)
[2024-02-09 20:07] LABS: Basophils % (A) 0 %; Eosinophils # (A) 0.2 k/uL (0-0.7); Eosinophils % (A) 2 %; HGB 13.2 gm/dL (11.4-16.0); Lymphocytes # (A) 0.7 k/uL (1.0-4.8); Lymphocytes % (A) 8 %; MCH 24.8 pg (25.0-35.0); MCHC 31.5 g/dL (31.0-37.0); MCV 78.7 fL (80.0-100.0); Mean Platelet Volume 7.1; Monocytes # (A) 0.2 k/uL (0-1.0); Monocytes % (A) 3 %; Neutrophils # (A) 7.8 k/uL (1.3-7.7); Neutrophils % (A) 86 %; Platelet Count 315 k/uL (150-450); RBC 5.34 m/uL (3.80-5.40); RDW 14.6 % (11.5-15.5); WBC 9.1 k/uL (3.8-10.6)
--- NOTE | 2024-02-09 20:20 | ED ---
General Adult HPI - General Chief complaint: Nausea/Vomiting/Diarrhea Stated complaint: vomiting Time Seen by Provider: 02/09/24 19:21 Source: patient, RN notes reviewed, old records reviewed Mode of arrival: ambulatory - History of Present Illness Initial comments: Patient is a 33-year-old female presents emergency department complaining of recurrent episodes of diarrhea. Does endorse a little bit of blood on the toilet paper when she wipes but she does have a history of hemorrhoids. Patient's had similar complaints yesterday. Her symptoms started earlier this morning. Had a few episodes of nonbilious nonbloody emesis as well. Endorses generalized abdominal pressure sensation but no focal pain. Feels dehydrated. Feels ill. Presents for further evaluation. History of appendectomy and section. Presents for further evaluation at this time. Has any fevers or upper respiratory symptoms. Has a history of IBS, Khushbu syndrome. - Related Data Home Medications Medication Instructions Recorded Confirmed Cetirizine HCl [Zyrtec] 10 mg PO DAILY PRN 05/09/23 05/09/23 Omeprazole Magnesium [PriLOSEC OTC] 20 mg PO DAILY 05/09/23 05/09/23 Previous Rx's Medication Instructions Recorded Famotidine [Pepcid] 20 mg PO BID #28 tablet 06/17/23 HYDROcodone/APAP 5-325MG [[place] 1 tab PO Q4HR PRN 3 Days #18 tab 08/29/23 5-325] predniSONE 60 mg PO DAILY #30 tab 08/29/23 Capsaicin Cream [Trixaicin Cream] 1 applic TOPICAL QID PRN #60 gm 12/21/23 Meloxicam [Mobic] 15 mg PO DAILY PRN #30 tab 12/21/23 methocarbamoL [Robaxin-750] 1,500 mg PO TID PRN #30 tab 12/21/23 Dicyclomine [Bentyl] 10 mg PO TID PRN 7 Days #21 capsule 02/09/24 Allergies Allergy/AdvReac Type Severity Reaction Status Date / Time No Known Allergies Allergy Verified 02/09/24 19:13 Review of Systems ROS Statement: Those systems with pertinent positive or pertinent negative responses have been documented in the HPI. Review of Systems: CONST: Denies fever EYES: Denies blurry vision ENT: Denies nasal congestion C/V: Denies Chest pain RESP: Denies shortness of breath GI: Endorses abdominal discomfort : Denies dysuria SKIN: Denies rash. MSK: Denies joint pain. NEURO: Denies headache ROS Other: All systems not noted in ROS Statement are negative. 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 colonoscopy Past Anesthesia/Blood Transfusion Reactions: No Reported Reaction Past Psychological History: No Psychological Hx Reported Smoking Status: Never smoker Past Alcohol Use History: Occasional Past Drug Use History: None Reported - Past Family History Mother Family Medical History: No Reported History General Exam - General Exam Comments Initial Comments: General: Appears in no acute distress. HEAD: Normal with no signs of head trauma. EYES: PERRLA, EOMI, conjunctiva normal, no discharge. ENT: Hearing grossly intact, normal oropharynx. RESPIRATORY: Clear breath sounds bilaterally. No wheezes, rales, or rhonchi. C/V: Regular rate and rhythm. S1 and S2 auscultated, no edema, peripheral pulses 2+ and intact throughout ABD: Abdomen is soft, nondistended. Nontender to palpation. No guarding. No rebound tenderness. No peritoneal signs. EXT: Normal range of motion, no obvious deformity SKIN: No rashes or lesions observed on exposed skin. NEURO: Alert and oriented x 4. Course Vital Signs 02/09/24 19:11 Temperature 98.5 F Pulse Rate 106 H Respiratory 20 Rate Blood Pressure 118/81 O2 Sat by Pulse 97 Oximetry Medical Decision Making - Medical Decision Making Was pt. sent in by a medical professional or institution (, PA, ROUTE [employer]ER, urgent care, hospital, or penitentiary...) When possible be specific @ -No Did you speak to anyone other than the patient for history (EMS, parent, family, police, friend...)? What history was obtained from this source @ -No Did you review nursing and triage notes (agree or disagree)? Why? @ -I reviewed and agree with nursing and triage notes Were old charts reviewed (outside hosp., previous admission, EMS record, old EKG, old radiological studies, urgent care reports/EKG's, penitentiary records)? Report findings @ -Old charts reviewed Differential Diagnosis (chest pain, altered mental status, abdominal pain women, abdominal pain men, vaginal bleeding, weakness, fever, dyspnea, syncope, headache, dizziness, GI bleed, back pain, seizure, CVA, palpatations, mental h ealth, musculoskeletal)? @ -COVID, flu, RSV, diarrhea, abdominal infection, IBS, dehydration. This list is not all inclusive. EKG interpreted by me (3pts min.). @ -None done X-rays interpreted by me (1pt min.). @ -None done CT interpreted by me (1pt min.). @ -None done U/S interpreted by me (1pt. min.). @ -None done What testing was considered but not performed or refused? (CT, X-rays, U/S, labs)? Why? @ -Discussed possible imaging however due to patient's age and relatively normal exam we will defer at this time until laboratory studies are completed. What meds were considered but not given or refused? Why? @ -None Did you discuss the management of the patient with other professionals (professionals i.e. , PA, R[employer]TE J[employer]ER, lab, RT, psych nurse, director of social services, agricultural research director, teacher, commissioned fire officer, case mgr)? Give summary @ -No Was smoking cessation discussed for >3mins.? @ -No Was critical care preformed (if so, how long)? @ -No Were there social determinants of health that impacted care today? How? (Homelessness, low income, unemployed, alcoholism, drug addiction, transportatio n, low edu. Level, literacy, decrease access to med. care, assisted, rehab)? @ -No Was there de-escalation of care discussed even if they declined (Discuss DNR or withdrawal of care, Hospice)? DNR status @ -No What co-morbidities impacted this encounter? (DM, HTN, Smoking, COPD, CAD, Cancer, CVA, ARF, Chemo, Hep., AIDS, mental health diagnosis, sleep apnea, morbid obesity)? @ -IBS, Khushbu syndrome Was patient admitted / discharged? Hospital course, mention meds given and route, prescriptions, significant lab abnormalities, going to OR and other pertinent info. @ -Patient presents complaining of diarrhea. Patient does have a sick contact with identical symptoms, her who is feeling improved. He had the symptoms yesterday. Presents for further evaluation at this time. Has had numerous episodes of diarrhea. Obtain abdominal laboratory studies. Did discuss imaging possibilities however we both agreed to defer at this time as patient is young with relatively normal exam. Vital signs are within acceptable limits.Laboratory studies are unremarkable. This includes negative . Urine within acceptable limits. Viral swabs and strep negative. Reevaluation, patient is feeling improved. We did discuss her workup. I do believe it is safer to be discharged home at this time. Likely has a viral gastroenteritis, considering her had identical symptoms and is improving at this time. She was in agreement this plan. Strict return precautions discussed. She will be discharged home with a starter pack of Zofran as well as a prescription for Bentyl. I will provide the patient with a prescription for Bentyl. I instructed the patient to follow up with their PCP in the next 1-3 days.. I explained that the patient should return to the emergency department if they experience any worsening symptoms. Strict return precautions were discussed with the patient. The patient expressed understanding of these instructions. I answered all questions that the patient had. The patient was discharged home in good condition with their prescriptions and follow up information. Undiagnosed new problem with uncertain prognosis? @ -No Drug Therapy requiring intensive monitoring for toxicity (Heparin, Nitro, Insulin, Cardizem)? @ -No Were any procedures done? @ -No Diagnosis/symptom? @ -Diarrhea, Acute, or Chronic, or Acute on Chronic? @ -Acute Uncomplicated (without systemic symptoms) or Complicated (systemic symptoms)? @ -Complicated Side effects of treatment? @ -None Exacerbation, Progression, or Severe Exacerbation] @ -No Poses a threat to life or bodily function? @ -Unlikely - Lab Data Result diagrams: 02/09/24 19:48 02/09/24 19:48 Lab Results 02/09/24 02/09/24 02/09/24 Range/Units 19:48 19:48 19:48 WBC 9.1 (3.8-10.6) k/uL RBC 5.34 (3.80-5.40) m/uL Hgb 13.2 (11.4-16.0) gm/dL Hct 42.0 (34.0-46.0) % MCV 78.7 L (80.0-100.0) fL MCH 24.8 L (25.0-35.0) pg MCHC 31.5 (31.0-37.0) g/dL RDW 14.6 (11.5-15.5) % Plt Count 315 (150-450) k/uL MPV 7.1 Neutrophils % 86 % Lymphocytes % 8 % Monocytes % 3 % Eosinophils % 2 % Basophils % 0 % Neutrophils # 7.8 H (1.3-7.7) k/uL Lymphocytes # 0.7 L (1.0-4.8) k/uL Monocytes # 0.2 (0-1.0) k/uL Eosinophils # 0.2 (0-0.7) k/uL Basophils # 0.0 (0-0.2) k/uL Sodium 138 (137-145) mmol/L Potassium 4.0 (3.5-5.1) mmol/L Chloride 107 (98-107) mmol/L Carbon Dioxide 20 L (22-30) mmol/L Anion Gap 11 mmol/L BUN 11 (7-17) mg/dL Creatinine 0.73 (0.52-1.04) mg/dL Est GFR (CKD-EPI)AfAm >90 (>60 ml/min/1.73 sqM) Est GFR (CKD-EPI)NonAf >90 (>60 ml/min/1.73 sqM) Glucose 99 (74-99) mg/dL Plasma Lactic Acid [place] 1.7 (0.7-2.0) mmol/L Calcium 9.0 (8.4-10.2) mg/dL Total Bilirubin 0.6 (0.2-1.3) mg/dL AST 22 (14-36) U/L ALT 14 (4-34) U/L Alkaline Phosphatase 99 (38-126) U/L Total Protein 7.3 (6.3-8.2) g/dL Albumin 4.2 (3.5-5.0) g/dL Amylase 56 (30-110) U/L Lipase 35 (23-300) U/L HCG, Qual Not Detected Urine Color Urine Appearance (Clear) Urine pH (5.0-8.0) Ur Specific [place] (1.001-1.035) Urine Protein (Negative) Urine Glucose (UA) (Negative) Urine Ketones (Negative) Urine Blood (Negative) Urine Nitrite (Negative) Urine Bilirubin (Negative) Urine Urobilinogen (<2.0) mg/dL Ur Leukocyte Esterase (Negative) Urine RBC (0-5) /hpf Urine WBC (0-5) /hpf Ur Squamous Epith Cells (0-4) /hpf Urine Bacteria (None) /hpf Urine Mucus (None) /hpf Influenza Type A (PCR) (Not Detectd) Influenza Type B (PCR) (Not Detectd) RSV (PCR) (Not Detectd) SARS-CoV-2 (PCR) (Not Detectd) Group A Strep (PCR) (Not Detectd) 02/09/24 02/09/24 02/09/24 Range/Units 19:48 19:48 19:53 WBC (3.8-10.6) k/uL RBC (3.80-5.40) m/uL Hgb (11.4-16.0) gm/dL Hct (34.0-46.0) % MCV (80.0-100.0) fL MCH (25.0-35.0) pg MCHC (31.0-37.0) g/dL RDW (11.5-15.5) % Plt Count (150-450) k/uL MPV Neutrophils % % Lymphocytes % % Monocytes % % Eosinophils % % Basophils % % Neutrophils # (1.3-7.7) k/uL Lymphocytes # (1.0-4.8) k/uL Monocytes # (0-1.0) k/uL Eosinophils # (0-0.7) k/uL Basophils # (0-0.2) k/uL Sodium (137-145) mmol/L Potassium (3.5-5.1) mmol/L Chloride (98-107) mmol/L Carbon Dioxide (22-30) mmol/L Anion Gap mmol/L BUN (7-17) mg/dL Creatinine (0.52-1.04) mg/dL Est GFR (CKD-EPI)AfAm (>60 ml/min/1.73 sqM) Est GFR (CKD-EPI)NonAf (>60 ml/min/1.73 sqM) Glucose (74-99) mg/dL Plasma Lactic Acid [place] (0.7-2.0) mmol/L Calcium (8.4-10.2) mg/dL Total Bilirubin (0.2-1.3) mg/dL AST (14-36) U/L ALT (4-34) U/L Alkaline Phosphatase (38-126) U/L Total Protein (6.3-8.2) g/dL Albumin (3.5-5.0) g/dL Amylase (30-110) U/L Lipase (23-300) U/L HCG, Qual Urine Color Yellow Urine Appearance Cloudy H (Clear) Urine pH 6.0 (5.0-8.0) Ur Specific [place] 1.030 (1.001-1.035) Urine Protein Trace H (Negative) Urine Glucose (UA) Negative (Negative) Urine Ketones Negative (Negative) Urine Blood Negative (Negative) Urine Nitrite Negative (Negative) Urine Bilirubin Negative (Negative) Urine Urobilinogen <2.0 (<2.0) mg/dL Ur Leukocyte Esterase Negative (Negative) Urine RBC 3 (0-5) /hpf Urine WBC 1 (0-5) /hpf Ur Squamous Epith Cells 11 H (0-4) /hpf Urine Bacteria Rare H (None) /hpf Urine Mucus Many H (None) /hpf Influenza Type A (PCR) Not Detected (Not Detectd) Influenza Type B (PCR) Not Detected (Not Detectd) RSV (PCR) Not Detected (Not Detectd) SARS-CoV-2 (PCR) Not Detected (Not Detectd) Group A Strep (PCR) NOT DETECTED (Not Detectd) Disposition Clinical Impression: Diarrhea Disposition: HOME SELF-CARE Condition: Good Instructions (If sedation given, give patient instructions): Acute Diarrhea (ED) Prescriptions: Dicyclomine [Bentyl] 10 mg PO TID PRN 7 Days #21 capsule PRN Reason: Pain Is patient prescribed a controlled substance at d/c from ED?: No Referrals: Cherelle Coppola MD [Primary Care Provider] - 1-2 days Time of Disposition: 21:06
[2024-02-09 20:42] LABS: Appearance,Urine Cloudy (Clear); Bacteria,Urine Rare /hpf; Bilirubin,Urine Negative (Negative); Blood,Urine Negative (Negative); Color,Urine Yellow; Glucose,Urine (UA) Negative (Negative); Ketones,Urine Negative (Negative); Leukocyte Esterase,Urine Negative (Negative); Mucus,Urine Many /hpf; Nitrite,Urine Negative (Negative); Protein,Urine Trace (Negative); RBC,Urine 3 /hpf (0-5); Squamous Epithelial Cell,Urine 11 /hpf (0-4); Urobilinogen,Urine <2.0 mg/dL (<2.0); WBC,Urine 1 /hpf (0-5)
[2024-02-09 20:45] LABS: ALT 14 U/L (4-34); AST 22 U/L (14-36); African American GFR (CKD) >90 (>60 ml/min/1.73 sqM); Albumin 4.2 g/dL (3.5-5.0); Alkaline Phosphatase 99 U/L (38-126); Amylase 56 U/L (30-110); Anion Gap 11 mmol/L; Blood Urea Nitrogen 11 mg/dL (7-17); Carbon Dioxide 20 mmol/L (22-30); Chloride 107 mmol/L (98-107); Glucose 99 mg/dL (74-99); Lipase 35 U/L (23-300); Non-African American GFR(CKD) >90 (>60 ml/min/1.73 sqM); Sodium 138 mmol/L (137-145); Total Bilirubin 0.6 mg/dL (0.2-1.3); Total Protein 7.3 g/dL (6.3-8.2)
[2024-02-09 21:03] LABS: HCG,Qualitative Serum Not Detected
[2024-02-09] MEDS: ONDANSETRON 4 MG ODT STARTER PACK 2 TAB BTL PO STA (21:21)
[2024-02-09 21:35] VITALS: BP 109/64; PULSE 68; RESP 16
== END 2024-02-09 21:30 | disposition home or self-care (01) ==
LOC: EC 19:02
DX: R19.7 Diarrhea, unspecified (principal)
CPT/HCPCS: 99284; 96374; 96375 ×2; 96361; 36415; 87651; 80053; 82150; 83605; 83690; 85025; 81001; 84703; 87636; J2405; J1885; S0119; C9113

== ENCOUNTER 2024-02-14 05:08 | Emergency (ER) | payer BC ==
--- NOTE | 2024-02-14 05:23 | ED ---
Nausea/Vomiting/Diarrhea HPI <El Turner - Last Filed: 02/14/24 14:22> - General Source: patient, RN notes reviewed, old records reviewed Mode of arrival: ambulatory Limitations: no limitations - History of Present Illness MD complaint: nausea, vomiting, diarrhea, abdominal pain -: days(s) Description of Vomiting: food contents, watery, bilious Location: diffuse, periumbilical, RUQ, epigastric Severity: moderate Severity scale (1-10): 10 Quality: sharp Consistency: intermittent Improves with: none Worsens with: none Context: sick contacts Associated Symptoms: myalgias, loss of appetite, malaise, nausea/vomiting, weakness <Noah Shaw - Last Filed: 02/17/24 22:12> - General Chief complaint: Nausea/Vomiting/Diarrhea Stated complaint: Stomach digestive issues Time Seen by Provider: 02/14/24 05:21 - History of Present Illness Initial comments: This is a 33-year-old female to ER for evaluation of severe nausea vomiting diarrhea abdominal pain. Intractable nausea vomiting here in the emergency department. Patient does have a recent family diagnosis of influenza and is concerned for persistent and severe influenza for herself. Patient's abdominal pain is worsening and she cannot control her vomiting. (Noah Shaw) - Related Data Home Medications Medication Instructions Recorded Confirmed Cetirizine HCl [Zyrtec] 10 mg PO DAILY PRN 05/09/23 05/09/23 Omeprazole Magnesium [PriLOSEC OTC] 20 mg PO DAILY 05/09/23 05/09/23 Previous Rx's Medication Instructions Recorded Famotidine [Pepcid] 20 mg PO BID #28 tablet 06/17/23 HYDROcodone/APAP 5-325MG [Doss 1 tab PO Q4HR PRN 3 Days #18 tab 08/29/23 5-325] predniSONE 60 mg PO DAILY #30 tab 08/29/23 Capsaicin Cream [Trixaicin Cream] 1 applic TOPICAL QID PRN #60 gm 12/21/23 Meloxicam [Mobic] 15 mg PO DAILY PRN #30 tab 12/21/23 methocarbamoL [Robaxin-750] 1,500 mg PO TID PRN #30 tab 12/21/23 Dicyclomine [Bentyl] 10 mg PO TID PRN 7 Days #21 capsule 02/09/24 Cephalexin [Keflex] 500 mg PO Q12HR 5 Days #10 cap 02/14/24 Metoclopramide [Reglan] 5 mg PO BID 5 Days #10 tab 02/14/24 Allergies Allergy/AdvReac Type Severity Reaction Status Date / Time No Known Allergies Allergy Verified 02/14/24 05:12 Review of Systems ROS Other: All systems not noted in ROS Statement are negative. <El Turner - Last Filed: 02/14/24 14:22> ROS Other: All systems not noted in ROS Statement are negative. <Noah Shaw - Last Filed: 02/17/24 22:12> ROS Statement: Those systems with pertinent positive or pertinent negative responses have been documented in the HPI. 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 colonoscopy Past Anesthesia/Blood Transfusion Reactions: No Reported Reaction Past Psychological History: No Psychological Hx Reported Smoking Status: Never smoker Past Alcohol Use History: Occasional Past Drug Use History: None Reported - Past Family History Mother Family Medical History: No Reported History <Noah Shaw - Last Filed: 02/17/24 22:12> General Exam Limitations: no limitations General appearance: alert, in no apparent distress Head exam: Present: atraumatic, normocephalic, normal inspection Eye exam: Present: normal appearance, PERRL, EOMI. Absent: scleral icterus, conjunctival injection, periorbital swelling ENT exam: Present: normal exam, mucous membranes moist Neck exam: Present: normal inspection. Absent: tenderness, meningismus, lymphadenopathy Respiratory exam: Present: normal lung sounds bilaterally. Absent: respiratory distress, wheezes, rales, rhonchi, stridor Cardiovascular Exam: Present: regular rate, normal rhythm, normal heart sounds. Absent: systolic murmur, diastolic murmur, rubs, gallop, clicks GI/Abdominal exam: Present: soft, normal bowel sounds. Absent: distended, tenderness, guarding, rebound, rigid Extremities exam: Present: normal inspection, full ROM, normal capillary refill. Absent: tenderness, pedal edema, joint swelling, calf tenderness Back exam: Present: normal inspection Neurological exam: Present: alert, oriented X3, CN II-XII intact Psychiatric exam: Present: normal affect, normal mood Skin exam: Present: warm, dry, intact, normal color. Absent: rash <Noah Shaw - Last Filed: 02/17/24 22:12> Course <Noah Shaw - Last Filed: 02/17/24 22:12> Vital Signs 02/14/24 02/14/24 02/14/24 05:11 06:47 10:43 Temperature 97.3 F L 97.9 F 97.9 F Pulse Rate 63 54 L 63 Respiratory 16 16 18 Rate Blood Pressure 113/78 107/66 106/69 O2 Sat by Pulse 98 99 98 Oximetry - Reevaluation(s) Reevaluation #1: 02/14/24 Medical records reviewed (Noah Shaw) Reevaluation #2: 02/14/24 Patient symptoms are mildly improved (Noah Shaw) Reevaluation #3: 02/14/24 Patient informed of results and questions answered (Noah Shaw) Reevaluation #4: Was pt. sent in by a medical professional or institution (, PA, HEALTH CLINICIAN, urgent care, hospital, or [place] [facility] care facility...) When possible be specific @ -no Did you speak to anyone other than the patient for history (EMS, parent, family, police, friend...)? What history was obtained from this source @ -no Did you review nursing and triage notes (agree or disagree)? Why? @ -agree Are old charts reviewed (outside hosp., previous admission, EMS record, old EKG, old radiological studies, urgent care reports/EKG's, [place] health [facility] facility records)? Report findings @ -yes Differential Diagnosis (chest pain, altered mental status, abdominal pain women, abdominal pain men, vaginal bleeding, weakness, fever, dyspnea, syncope, headache, dizziness, GI bleed, back pain, seizure, CVA, palpatations, mental health, musculoskeletal)? @ -prior EKG interpreted by me (3pts min.). @ -no X-rays interpreted by me (1pt min.). @ -no CT interpreted by me (1pt min.). @ -yes negative for acute disaese U/S interpreted by me (1pt. min.). @ -yes negative for acute disaese What testing was considered but not performed or refused? (CT, X-rays, U/S, la bs)? Why? @ -none What meds were considered but not given or refused? Why? @ -none Did you discuss the management of the patient with other professionals (professionals i.e. DrMartha, PA, HEALTH CLINICIAN, lab, RT, psych nurse, high school social studies tutor, equestrian trainer, teacher, first officer and flight instructor, window caser)? Give summary @ -no Was smoking cessation discussed for >3mins.? @ -no Was critical care preformed (if so, how long)? @ -no Were there social determinants of health that impacted care today? How? (Homelessness, low income, unemployed, alcoholism, drug addiction, transportation, low edu. Level, literacy, decrease access to med. care, fci, rehab)? @ -none Was there de-escalation of care discussed even if they declined (Discuss DNR or withdrawal of care, Hospice)? DNR status @ -no What co-morbidities impacted this encounter? (DM, HTN, Smoking, COPD, CAD, Cancer, CVA, ARF, Chemo, Hep., AIDS, mental health diagnosis, sleep apnea, morbid obesity)? @ -none Was patient admitted / discharged? Hospital course, mention meds given and route, prescriptions, significant lab abnormalities, going to OR and other pertinent info. @ - 33 female to the ER for evaluation patient presents today for evaluation of abdominal pain with nausea vomiting and symptoms improving. Patient feels well and can be discharged home Discharged Undiagnosed new problem with uncertain prognosis? @ -no Drug Therapy requiring intensive monitoring for toxicity (Heparin, Nitro, Insulin, Cardizem)? @ -no Were any procedures done? @ -no Diagnosis/symptom? @ -ABdominal Pain, w Nausea and VOmiting Acute, or Chronic, or Acute on Chronic? @ -Acute Uncomplicated (without systemic symptoms) or Complicated (systemic symptoms)? @ -Complicated Side effects of treatment? @ -no Exacerbation, Progression, or Severe Exacerbation? @ -exacerbation Poses a threat to life or bodily function? How? (Chest pain, [place], [place], pneumonia, PE, COPD, DKA, ARF, appy, cholecystitis, CVA, Diverticulitis, Homicidal, Suicidal, threat to staff... and all critical care pts) @ -no (Noah Shaw) Reevaluation #5: Differential Abdominal Pain Women: Appendicitis, Cholecystitis, diverticulosis, ischemic bowel, pancreatitis, hepatitis, UTI, gastroenteritis, AAA, incarcerated hernia, bowel obstruction, constipation, inflammatory bowel, hepatitis, peptic ulcer disease, splenic infarction, perforated viscus, vulvitis, ovarian torsion, PID, kidney stone, placenta abruption, this is not meant to be an all-inclusive list (Noah Shaw) Medical Decision Making - Lab Data Result diagrams: 02/14/24 05:42 02/14/24 05:42 <El Turner - Last Filed: 02/14/24 14:22> - Lab Data Result diagrams: 02/14/24 05:42 02/14/24 05:42 - Radiology Data Radiology results: report reviewed (CT abd pelvis is negative for acute disease, US Pelvis ultrasound pelvis negative for acute disease), image reviewed <Noah Shaw - Last Filed: 02/17/24 22:12> - Medical Decision Making Patient signed out to me pending results of workup and CT imaging. Briefly, presents with 1 week of diarrhea and intermittent abdominal discomfort. Has a history of Khushbu's and IBS. Laboratory studies so far show a minimal leukocytosis of 11.2. Urinalysis is borderline for UTI as it is somewhat contaminated but does show signs including leukocyte esterase, white cells, bacteria. CT abdomen pelvis as interpreted by myself reveals a suspected left ovarian dominant follicle but no other findings. I recommended an ultrasound to evaluate for possible torsion, and ultrasound is interpreted by myself of the pelvis reveals no evidence of ovarian torsion at this time. I discussed results with the patient. She will be started empirically on antibiotics for UTI. She was in agreement this plan. Strict return precautions discussed. I will provide the patient with a prescription for Keflex, Reglan. I instructed the patient to follow up with their PCP in the next 1-3 days.. I explained that the patient should return to the emergency department if they experience any worsening symptoms. Strict return precautions were discussed with the patient. The patient expressed understanding of these instructions. I answered all questions that the patient had. The patient was discharged home in good condition with their prescriptions and follow up information. Diagnosis/symptom? @ -Abdominal pain of unknown etiology, UTI Acute, or Chronic, or Acute on Chronic? @ -Acute Uncomplicated (without systemic symptoms) or Complicated (systemic symptoms)? @ -Complicated Side effects of treatment? @ -None Exacerbation, Progression, or Severe Exacerbation] @ -No Poses a threat to life or bodily function? @ -Unlikely (El Turner) 33 female to the ER for evaluation patient presents today for evaluation of abdominal pain with nausea vomiting and symptoms improving. Patient feels well and can be discharged home (Noah Shaw) - Lab Data Lab Results 02/14/24 02/14/24 02/14/24 Range/Units 05:42 05:42 06:44 WBC 11.2 H (3.8-10.6) k/uL RBC 5.00 (3.80-5.40) m/uL Hgb 12.6 (11.4-16.0) gm/dL Hct 39.7 (34.0-46.0) % MCV 79.4 L (80.0-100.0) fL MCH 25.2 (25.0-35.0) pg MCHC 31.8 (31.0-37.0) g/dL RDW 14.4 (11.5-15.5) % Plt Count 386 (150-450) k/uL MPV 7.1 Neutrophils % 83 % Lymphocytes % 11 % Monocytes % 5 % Eosinophils % 1 % Basophils % 0 % Neutrophils # 9.3 H (1.3-7.7) k/uL Lymphocytes # 1.2 (1.0-4.8) k/uL Monocytes # 0.5 (0-1.0) k/uL Eosinophils # 0.1 (0-0.7) k/uL Basophils # 0.0 (0-0.2) k/uL Sodium 142 (137-145) mmol/L Potassium 3.9 (3.5-5.1) mmol/L Chloride 109 H (98-107) mmol/L Carbon Dioxide 25 (22-30) mmol/L Anion Gap 8 mmol/L BUN 9 (7-17) mg/dL Creatinine 0.73 (0.52-1.04) mg/dL Est GFR (CKD-EPI)AfAm >90 (>60 ml/min/1.73 sqM) Est GFR (CKD-EPI)NonAf >90 (>60 ml/min/1.73 sqM) Glucose 104 H (74-99) mg/dL Calcium 8.9 (8.4-10.2) mg/dL Phosphorus 3.3 (2.5-4.5) mg/dL Magnesium 2.0 (1.6-2.3) mg/dL Total Bilirubin 0.3 (0.2-1.3) mg/dL AST 19 (14-36) U/L ALT 15 (4-34) U/L Alkaline Phosphatase 100 (38-126) U/L Total Protein 7.5 (6.3-8.2) g/dL Albumin 4.2 (3.5-5.0) g/dL Lipase 38 (23-300) U/L Urine Color Light Yellow Urine Appearance Cloudy H (Clear) Urine pH 6.5 (5.0-8.0) Ur Specific Friendship 1.021 (1.001-1.035) Urine Protein Negative (Negative) Urine Glucose (UA) Negative (Negative) Urine Ketones Negative (Negative) Urine Blood Trace H (Negative) Urine Nitrite Negative (Negative) Urine Bilirubin Negative (Negative) Urine Urobilinogen <2.0 (<2.0) mg/dL Ur Leukocyte Esterase Large H (Negative) Urine RBC 1 (0-5) /hpf Urine WBC 37 H (0-5) /hpf Ur Squamous Epith Cells 8 H (0-4) /hpf Amorphous Sediment Rare H (None) /hpf Urine Bacteria Many H (None) /hpf Hyaline Casts 3 H (0-2) /lpf Urine Mucus Many H (None) /hpf Urine HCG, Qual (Not Detectd) Influenza Type A (PCR) (Not Detectd) Influenza Type B (PCR) (Not Detectd) RSV (PCR) (Not Detectd) SARS-CoV-2 (PCR) (Not Detectd) 02/14/24 02/14/24 Range/Units 06:44 06:56 WBC (3.8-10.6) k/uL RBC (3.80-5.40) m/uL Hgb (11.4-16.0) gm/dL Hct (34.0-46.0) % MCV (80.0-100.0) fL MCH (25.0-35.0) pg MCHC (31.0-37.0) g/dL RDW (11.5-15.5) % Plt Count (150-450) k/uL MPV Neutrophils % % Lymphocytes % % Monocytes % % Eosinophils % % Basophils % % Neutrophils # (1.3-7.7) k/uL Lymphocytes # (1.0-4.8) k/uL Monocytes # (0-1.0) k/uL Eosinophils # (0-0.7) k/uL Basophils # (0-0.2) k/uL Sodium (137-145) mmol/L Potassium (3.5-5.1) mmol/L Chloride (98-107) mmol/L Carbon Dioxide (22-30) mmol/L Anion Gap mmol/L BUN (7-17) mg/dL Creatinine (0.52-1.04) mg/dL Est GFR (CKD-EPI)AfAm (>60 ml/min/1.73 sqM) Est GFR (CKD-EPI)NonAf (>60 ml/min/1.73 sqM) Glucose (74-99) mg/dL Calcium (8.4-10.2) mg/dL Phosphorus (2.5-4.5) mg/dL Magnesium (1.6-2.3) mg/dL Total Bilirubin (0.2-1.3) mg/dL AST (14-36) U/L ALT (4-34) U/L Alkaline Phosphatase (38-126) U/L Total Protein (6.3-8.2) g/dL Albumin (3.5-5.0) g/dL Lipase (23-300) U/L Urine Color Urine Appearance (Clear) Urine pH (5.0-8.0) Ur Specific Friendship (1.001-1.035) Urine Protein (Negative) Urine Glucose (UA) (Negative) Urine Ketones (Negative) Urine Blood (Negative) Urine Nitrite (Negative) Urine Bilirubin (Negative) Urine Urobilinogen (<2.0) mg/dL Ur Leukocyte Esterase (Negative) Urine RBC (0-5) /hpf Urine WBC (0-5) /hpf Ur Squamous Epith Cells (0-4) /hpf Amorphous Sediment (None) /hpf Urine Bacteria (None) /hpf Hyaline Casts (0-2) /lpf Urine Mucus (None) /hpf Urine HCG, Qual Not Detected (Not Detectd) Influenza Type A (PCR) Not Detected (Not Detectd) Influenza Type B (PCR) Not Detected (Not Detectd) RSV (PCR) Not Detected (Not Detectd) SARS-CoV-2 (PCR) Not Detected (Not Detectd) Disposition Is patient prescribed a controlled substance at d/c from ED?: No Time of Disposition: 10:32 <El Turner - Last Filed: 02/14/24 14:22> Is patient prescribed a controlled substance at d/c from ED?: No <Noah Shaw - Last Filed: 02/17/24 22:12> Clinical Impression: UTI (urinary tract infection), Abdominal pain of unknown etiology Disposition: HOME SELF-CARE Condition: Good Instructions (If sedation given, give patient instructions): Abdominal Pain (ED) Prescriptions: Cephalexin [Keflex] 500 mg PO Q12HR 5 Days #10 cap Metoclopramide [Reglan] 5 mg PO BID 5 Days #10 tab Referrals: Cherelle Coppola MD [Primary Care Provider] - 1-2 days
[2024-02-14] MEDS: SODIUM CHLORIDE 0.9% 1,000 ML IV STA (05:43)
[2024-02-14] MEDS: ONDANSETRON 4 MG/2 ML VIAL IVP STA (05:44)
[2024-02-14] MEDS: SODIUM CHLORIDE 0.9% 500 ML 500 ML IV STA ×2 (05:47→06:43)
[2024-02-14 06:14] LABS: Basophils % (A) 0 %; Eosinophils # (A) 0.1 k/uL (0-0.7); Eosinophils % (A) 1 %; HCT 39.7 % (34.0-46.0); HGB 12.6 gm/dL (11.4-16.0); Lymphocytes # (A) 1.2 k/uL (1.0-4.8); Lymphocytes % (A) 11 %; MCH 25.2 pg (25.0-35.0); MCHC 31.8 g/dL (31.0-37.0); MCV 79.4 fL (80.0-100.0); Mean Platelet Volume 7.1; Monocytes # (A) 0.5 k/uL (0-1.0); Monocytes % (A) 5 %; Neutrophils # (A) 9.3 k/uL (1.3-7.7); Neutrophils % (A) 83 %; Platelet Count 386 k/uL (150-450); RDW 14.4 % (11.5-15.5); WBC 11.2 k/uL (3.8-10.6)
[2024-02-14 06:39] LABS: ALT 15 U/L (4-34); AST 19 U/L (14-36); African American GFR (CKD) >90 (>60 ml/min/1.73 sqM); Albumin 4.2 g/dL (3.5-5.0); Alkaline Phosphatase 100 U/L (38-126); Anion Gap 8 mmol/L; Blood Urea Nitrogen 9 mg/dL (7-17); Calcium 8.9 mg/dL (8.4-10.2); Carbon Dioxide 25 mmol/L (22-30); Chloride 109 mmol/L (98-107); Glucose 104 mg/dL (74-99); Lipase 38 U/L (23-300); Non-African American GFR(CKD) >90 (>60 ml/min/1.73 sqM); Phosphorus 3.3 mg/dL (2.5-4.5); Potassium 3.9 mmol/L (3.5-5.1); Sodium 142 mmol/L (137-145); Total Bilirubin 0.3 mg/dL (0.2-1.3); Total Protein 7.5 g/dL (6.3-8.2)
[2024-02-14] MEDS: KETOROLAC 15 MG/ML 1 ML VIAL IVP STA (06:43)
[2024-02-14] MEDS: ACETAMINOPHEN IV (For NPO) 1,000 MG in EMPTY BAG 1 BAG IVPB STA (06:53)
[2024-02-14 07:08] VITALS: TEMP 97.9
[2024-02-14 07:12] LABS: Amorphous Sediment,Urine Rare /hpf; Appearance,Urine Cloudy (Clear); Bacteria,Urine Many /hpf; Bilirubin,Urine Negative (Negative); Blood,Urine Trace (Negative); Color,Urine Light Yellow; Glucose,Urine (UA) Negative (Negative); Hyaline Casts,Urine 3 /lpf (0-2); Ketones,Urine Negative (Negative); Leukocyte Esterase,Urine Large (Negative); Mucus,Urine Many /hpf; Nitrite,Urine Negative (Negative); PH, Urine 6.5 (5.0-8.0); Protein,Urine Negative (Negative); RBC,Urine 1 /hpf (0-5); Specific Gravity,Urine 1.021 (1.001-1.035); Squamous Epithelial Cell,Urine 8 /hpf (0-4); Urobilinogen,Urine <2.0 mg/dL (<2.0); WBC,Urine 37 /hpf (0-5)
--- NOTE | 2024-02-14 08:10 | CT ---
EXAMINATION TYPE: CT abdomen pelvis w con CT DLP: 1255.3 mGycm, Automated exposure control for dose reduction was used. DATE OF EXAM: 02/14/2024 7:33 AM COMPARISON: 05/09/2023 CLINICAL INDICATION:Female, 33 years old with history of pain; Abdominal pain and nausea TECHNIQUE: Axial CT abdomen pelvis w con;Sagittal and coronal reformats were created on a separate w orkstation. Contrast used:100 ml mL of Isovue 300 with IV Contrast, (none if empty) Oral contrast used: without Oral Contrast (none if empty) FINDINGS: LOWER CHEST: Unremarkable ABDOMEN LIVER: Unremarkable GALLBLADDER AND BILE DUCTS: Unremarkable. PANCREAS: Unremarkable. SPLEEN: Unremarkable. ADRENAL GLANDS: Unremarkable. KIDNEYS AND URETERS: No evidence of hydronephrosis or renal calculus. The ureters are unremarkable. PELVIS BLADDER: Unremarkable REPRODUCTIVE: Prominent left ovary with hyperemic follicle. ABDOMEN & PELVIS STOMACH AND BOWEL: No evidence of bowel obstruction. The appendix is surgically absent. PERITONEUM/RETROPERITONEUM: No evidence of pneumoperitoneum or free fluid. VASCULATURE: No evidence of aortic aneurysm. MUSCULOSKELETAL: No acute osseous abnormalities LYMPH NODES: No gross evidence for lymphadenopathy. SOFT TISSUE/ABDOMINAL WALL: Unremarkable IMPRESSION: Suspected left ovarian dominant follicle. No other acute finding in the abdomen or pelvis to explain the patient's pain.
[2024-02-14] MEDS: METOCLOPRAMIDE 5 MG/ML 2 ML VIAL IVP STA (08:33)
--- NOTE | 2024-02-14 10:24 | US ---
EXAMINATION TYPE: US pelvic complete, US transvaginal DATE OF EXAM: 02/14/2024 COMPARISON: Same day CT CLINICAL INDICATION: Female, 33 years old with history of R/O left ovarian torsion; Abnormal CT. Sto mach pain. TECHNIQUE: Transabdominal (TA). Transabdominal sonographic images of the pelvis were acquired. TECHNIQUE: Transvaginal (TV). Transabdominal sonographic images of the pelvis were acquired. Date of LMP: 01/24/2024, EXAM MEASUREMENTS: Uterus: 8.5 x 4.9 x 4.1 cm Endometrial Stripe: 0.8 cm Right Ovary: 2.8 x 2.3 x 1.5 cm Left Ovary: 3.2 x 1.8 x 2.0 cm 1. Uterus: Anteverted wnl 2. Endometrium: wnl 3. Right Ovary: Follicles seen. 4. Left Ovary: Hypoechoic lesion with peripheral vascularity = 1.6 x 1.3 x 1.2 cm Spectral, color and waveform doppler imaging shows good arterial and venous flow within left ovary; there is no evidence for ovarian torsion. 5. Bilateral Adnexa: no free fluid 6. Posterior cul-de-sac: no free fluid IMPRESSION: 1. Appropriate arterial and venous waveforms to the left ovary. 2. No evidence for acute process. 3. Corpus luteum in the left ovary.
[2024-02-14] MEDS: CEPHALEXIN 500 MG CAP PO STA (10:39)
[2024-02-14 11:19] VITALS: BP 106/69; PULSE 63; RESP 18
== END 2024-02-14 11:18 | disposition home or self-care (01) ==
LOC: EC 05:08
DX: N39.0 Urinary tract infection, site not specified (principal)
CPT/HCPCS: 99285; 96374; 96375 ×3; 96361 ×2; 36415; 80053; 83690; 83735; 84100; 85025; 81001; 81025; 87086; 87636; 93976; 76856; 76830; 74177; J2765; J2405; J0131; J1885; Q9967

== ENCOUNTER → 2024-03-25 | Outpatient (CLI) | payer BC ==
[2024-03-25 19:02] LABS: Basophils # (A) 0.06 X 10*3/uL (0.00-0.10); Basophils % (A) 0.9 %; Eosinophils # (A) 0.16 X 10*3/uL (0.04-0.35); Eosinophils % (A) 2.4 %; HCT 39.7 % (37.2-46.3); Lymphocytes # (A) 2.29 X 10*3/uL (0.90-5.00); Lymphocytes % (A) 33.9 %; MCH 24.1 pg (27.0-32.0); MCHC 30.2 g/dL (32.0-37.0); MCV 79.9 FL (80.0-97.0); Mean Platelet Volume 9.2 FL (9.5-12.2); Monocytes # (A) 0.34 X 10*3/uL (0.20-1.00); NRBC Per 100 WBC 0 X 10*3/uL (0.00-0.01); Neutrophils # (A) 3.89 X 10*3/uL (1.80-7.70); Neutrophils % (A) 57.7 %; Platelet Count 405 X 10*3/uL (140-440); RBC 4.97 X 10*6/uL (4.10-5.20); RDW 14.6 % (11.5-14.5); WBC 6.75 X 10*3/uL (4.50-10.00)
[2024-03-25 19:41] LABS: Hepatitis B Surface Antigen Nonreactive (Nonreactive)
[2024-03-25 19:46] LABS: Hepatitis B Surface AB- Quant 61.2 mIU/mL
[2024-03-25 20:02] LABS: ALT 9 U/L (8-44); AST 13 U/L (13-35); Albumin 4.2 g/dL (3.8-4.9); Albumin/Globulin Ratio 1.56 Ratio (1.60-3.17); Alkaline Phosphatase 106 U/L (41-126); BUN/Creat Ratio 11.38 Ratio (12.00-20.00); Blood Urea Nitrogen 9.1 mg/dL (9.0-27.0); Calcium 9.4 mg/dL (8.7-10.3); Carbon Dioxide 24.9 mmol/L (21.6-31.8); Chloride 106 mmol/L (96-109); Globulin 2.7 g/dL (1.6-3.3); Glucose 74 mg/dL (70-110); Potassium 3.8 mmol/L (3.5-5.5); Sodium 142 mmol/L (135-145); Total Bilirubin 0.2 mg/dL (0.3-1.2); Total Protein 6.9 g/dL (6.2-8.2)
== END | disposition home or self-care (01) ==
LOC: LABWHC1 13:08
PROVIDERS: ATTEND Internal Medicine Rheumatology
DX: H16.303 Unspecified interstitial keratitis, bilateral (principal)
CPT/HCPCS: 36415; 80053; 82542; 82657; 85025; 86480; 86706; 87340

== ENCOUNTER 2024-04-17 21:00 | Emergency (ER) | payer BC ==
--- NOTE | 2024-04-17 22:42 | ED ---
Allergic Reaction HPI - General Chief complaint: Allergic Reaction Stated complaint: Allergic Reaction Time Seen by Provider: 04/17/24 22:05 Source: patient Mode of arrival: ambulatory Limitations: no limitations - History of Present Illness Initial Comments: 34-year-old female with a past medical history significant for rheumatoid arthritis presenting to the ED with a chief complaint of allergic reaction. Patient started on azathioprine 9 days ago. Reports today acute onset of headache and rash on her face and bilateral upper extremities. States headache is currently dull in nature, 2 out of 10 in severity. Not the worst headache of her life. No fever or chills. No myalgias or arthralgias. No loss of vision. No chest pain shortness of breath. No other complaints at this time. - Related Data Home Medications Medication Instructions Recorded Confirmed Cetirizine HCl [Zyrtec] 10 mg PO DAILY PRN 05/09/23 05/09/23 Omeprazole Magnesium [PriLOSEC OTC] 20 mg PO DAILY 05/09/23 05/09/23 Previous Rx's Medication Instructions Recorded Famotidine [Pepcid] 20 mg PO BID #28 tablet 06/17/23 HYDROcodone/APAP 5-325MG [[place] 1 tab PO Q4HR PRN 3 Days #18 tab 08/29/23 5-325] predniSONE 60 mg PO DAILY #30 tab 08/29/23 Capsaicin Cream [Trixaicin Cream] 1 applic TOPICAL QID PRN #60 gm 12/21/23 Meloxicam [Mobic] 15 mg PO DAILY PRN #30 tab 12/21/23 methocarbamoL [Robaxin-750] 1,500 mg PO TID PRN #30 tab 12/21/23 Dicyclomine [Bentyl] 10 mg PO TID PRN 7 Days #21 capsule 02/09/24 Cephalexin [Keflex] 500 mg PO Q12HR 5 Days #10 cap 02/14/24 Metoclopramide [Reglan] 5 mg PO BID 5 Days #10 tab 02/14/24 predniSONE 50 mg PO DAILY 7 Days #7 tablet 04/18/24 Allergies Allergy/AdvReac Type Severity Reaction Status Date / Time azathioprine [From Azasan] Allergy Rash/Hives Verified 04/17/24 21:09 Review of Systems ROS Statement: Those systems with pertinent positive or pertinent negative responses have been documented in the HPI. ROS Other: All systems not noted in ROS Statement are negative. Past Medical History Past Medical History: Asthma, Rheumatoid Arthritis (RA) Additional Past Medical History / Comment(s): IBS, pleurisy, cogans syndrome History of Any Multi-Drug Resistant Organisms: None Reported Past Surgical History: Appendectomy, Section Additional Past Surgical History / Comment(s): nose surg. colonoscopy Past Anesthesia/Blood Transfusion Reactions: No Reported Reaction Past Psychological History: No Psychological Hx Reported Smoking Status: Never smoker Past Alcohol Use History: Occasional Past Drug Use History: None Reported - Past Family History Mother Family Medical History: No Reported History General Exam Limitations: no limitations General appearance: alert, in no apparent distress Eye exam: Present: normal appearance Neck exam: Present: normal inspection Respiratory exam: Present: normal lung sounds bilaterally Cardiovascular Exam: Present: regular rate GI/Abdominal exam: Present: soft Back exam: Present: normal inspection Neurological exam: Present: alert, oriented X3 Skin exam: Present: warm, dry, other (Vesiculopapular rash on the face and bilateral upper extremities which are tender to the touch.) Course Vital Signs 04/17/24 21:05 Temperature 98.5 F Pulse Rate 87 Respiratory 20 Rate Blood Pressure 143/93 O2 Sat by Pulse 99 Oximetry Medical Decision Making - Medical Decision Making Was pt. sent in by a medical professional or institution (NAYA Nettles, WAISTLINE JOINER, urgent care, hospital, or retirement...) When possible be specific @ -No Did you speak to anyone other than the patient for history (EMS, parent, family, police, friend...)? What history was obtained from this source @ -No Did you review nursing and triage notes (agree or disagree)? Why? @ -I reviewed and agree with nursing and triage notes Were old charts reviewed (outside hosp., previous admission, EMS record, old EKG, old radiological studies, urgent care reports/EKG's, retirement records)? Report findings @ -No old charts were reviewed Differential Diagnosis (chest pain, altered mental status, abdominal pain women, abdominal pain men, vaginal bleeding, weakness, fever, dyspnea, syncope, headache, dizziness, GI bleed, back pain, seizure, CVA, palpatations, mental health, musculoskeletal)? @ -Differential Musculoskeletal Anaphylaxis, Sweet syndrome, cellulitis, TN, SJS, scalded skin syndrome, TSS.... This is not meant to be in all inclusive list EKG interpreted by me (3pts min.). @ -None X-rays interpreted by me (1pt min.). @ -None done CT interpreted by me (1pt min.). @ -None done U/S interpreted by me (1pt. min.). @ -None done What testing was considered but not performed or refused? (CT, X-rays, U/S, labs)? Why? @ -None What meds were considered but not given or refused? Why? @ -None Did you discuss the management of the patient with other professionals (professionals i.e. DrMartha, PA, WAISTLINE JOINER, lab, RT, psych nurse, foster care social worker, wireless team member, teacher, client sales and service officer, special education case manager)? Give summary @ -No Was smoking cessation discussed for >3mins.? @ -No Was critical care preformed (if so, how long)? @ -No Were there social determinants of health that impacted care today? How? (Homelessness, low income, unemployed, alcoholism, drug addiction, transportation, low edu. Level, literacy, decrease access to med. care, senior care, rehab)? @ -No Was there de-escalation of care discussed even if they declined (Discuss DNR or withdrawal of care, Hospice)? DNR status @ -No What co-morbidities impacted this encounter? (DM, HTN, Smoking, COPD, CAD, Cancer, CVA, ARF, Chemo, Hep., AIDS, mental health diagnosis, sleep apnea, morbid obesity)? @ -None Was patient admitted / discharged? Hospital course, mention meds given and route, prescriptions, significant lab abnormalities, going to OR and other pertinent info. @ -Discharge 34-year-old female presenting to the ED with acute onset of headache and rash today. Has been using azathioprine for the past 9 days. On examination, vesiculopapular rash on patient's face and bilateral upper extremities which are tender to the touch. Laboratory studies reviewed. CBC largely unremarkable. Chemistry panel largely unremarkable. CRP is elevated at 3.6. Urine shows no significant evidence of infection. Symptoms likely secondary to azathioprine use. Provided steroids, antihistamines, and analgesia here with significant improvement of symptoms. Discharged home with prescription for prednisone. Advise close follow-up with her PCP. Provided referral to see dermatology and rheumatology. Discharged home in stable condition. Discussed return precautions with patient who verbalized agreement. Undiagnosed new problem with uncertain prognosis? @ -No Drug Therapy requiring intensive monitoring for toxicity (Heparin, Nitro, Insulin, Cardizem)? @ -No Were any procedures done? @ -No Diagnosis/symptom? @ -Rash Acute, or Chronic, or Acute on Chronic? @ -Acute Uncomplicated (without systemic symptoms) or Complicated (systemic symptoms)? @ -Complicated Side effects of treatment? @ -No Exacerbation, Progression, or Severe Exacerbation? @ -No Poses a threat to life or bodily function? How? (Chest pain, [place], [place], pneumonia, PE, COPD, DKA, ARF, appy, cholecystitis, CVA, Diverticulitis, Homicidal, Suicidal, threat to staff... and all critical care pts) @ -No - Lab Data Result diagrams: 04/18/24 01:13 04/18/24 01:13 Lab Results 04/18/24 04/18/24 04/18/24 Range/Units 01:13 01:13 03:12 WBC 6.9 (3.8-10.6) k/uL RBC 4.25 (3.80-5.40) m/uL Hgb 10.8 L (11.4-16.0) gm/dL Hct 33.8 L (34.0-46.0) % MCV 79.6 L (80.0-100.0) fL MCH 25.5 (25.0-35.0) pg MCHC 32.0 (31.0-37.0) g/dL RDW 14.7 (11.5-15.5) % Plt Count 297 (150-450) k/uL MPV 7.1 Neutrophils % 72 % Lymphocytes % 17 % Monocytes % 4 % Eosinophils % 5 % Basophils % 1 % Neutrophils # 5.0 (1.3-7.7) k/uL Lymphocytes # 1.2 (1.0-4.8) k/uL Monocytes # 0.3 (0-1.0) k/uL Eosinophils # 0.3 (0-0.7) k/uL Basophils # 0.0 (0-0.2) k/uL Hypochromasia Slight Sodium 138 (137-145) mmol/L Potassium 3.6 (3.5-5.1) mmol/L Chloride 112 H (98-107) mmol/L Carbon Dioxide 19 L (22-30) mmol/L Anion Gap 7 mmol/L BUN 7 (7-17) mg/dL Creatinine 0.67 (0.52-1.04) mg/dL Est GFR (CKD-EPI)AfAm >90 (>60 ml/min/1.73 sqM) Est GFR (CKD-EPI)NonAf >90 (>60 ml/min/1.73 sqM) Glucose 117 H (74-99) mg/dL Calcium 8.5 (8.4-10.2) mg/dL Total Bilirubin 0.4 (0.2-1.3) mg/dL AST 16 (14-36) U/L ALT 12 (4-34) U/L Alkaline Phosphatase 89 (38-126) U/L C-Reactive Protein 3.6 H (<1.0) mg/dL Total Protein 6.6 (6.3-8.2) g/dL Albumin 3.5 (3.5-5.0) g/dL Urine Color Yellow Urine Appearance Cloudy H (Clear) Urine pH 5.5 (5.0-8.0) Ur Specific [place] 1.017 (1.001-1.035) Urine Protein Trace H (Negative) Urine Glucose (UA) Negative (Negative) Urine Ketones Negative (Negative) Urine Blood Large H (Negative) Urine Nitrite Negative (Negative) Urine Bilirubin Negative (Negative) Urine Urobilinogen <2.0 (<2.0) mg/dL Ur Leukocyte Esterase Small H (Negative) Urine RBC 27 H (0-5) /hpf Urine WBC 4 (0-5) /hpf Ur Squamous Epith Cells 6 H (0-4) /hpf Urine Bacteria Rare H (None) /hpf Urine Mucus Many H (None) /hpf Disposition Clinical Impression: Rash Disposition: HOME SELF-CARE Condition: Good Additional Instructions: Please return to the Emergency Department if symptoms worsen or any other concerns. Please follow-up with your PCP, rheumatology, dermatology. Prescriptions: predniSONE 50 mg PO DAILY 7 Days #7 tablet Is patient prescribed a controlled substance at d/c from ED?: No Referrals: Cherelle Coppola MD [Primary Care Provider] - 1-2 days Misty Cox MD [STAFF PHYSICIAN] - 1-2 days Isidro Veras MD [STAFF PHYSICIAN] - 1-2 days Noni Veras MD [STAFF PHYSICIAN] - 1-2 days Time of Disposition: 03:48
[2024-04-17] MEDS: FAMOTIDINE 20 MG/2 ML VIAL IV STA (22:57)
[2024-04-17] MEDS: predniSONE 20 MG TAB PO STA (22:57)
[2024-04-17] MEDS: diphenhydrAMINE 50 MG/ML 1 ML VIAL IVP STA (22:58)
[2024-04-17] MEDS: KETOROLAC 15 MG/ML 1 ML VIAL IVP STA (22:58)
[2024-04-18 01:50] LABS: Basophils % (A) 1 %; Eosinophils # (A) 0.3 k/uL (0-0.7); Eosinophils % (A) 5 %; HCT 33.8 % (34.0-46.0); HGB 10.8 gm/dL (11.4-16.0); Hypochromasia Slight; Lymphocytes # (A) 1.2 k/uL (1.0-4.8); Lymphocytes % (A) 17 %; MCH 25.5 pg (25.0-35.0); MCV 79.6 fL (80.0-100.0); Mean Platelet Volume 7.1; Monocytes # (A) 0.3 k/uL (0-1.0); Monocytes % (A) 4 %; Neutrophils % (A) 72 %; Platelet Count 297 k/uL (150-450); RBC 4.25 m/uL (3.80-5.40); RDW 14.7 % (11.5-15.5); WBC 6.9 k/uL (3.8-10.6)
[2024-04-18 02:04] LABS: ALT 12 U/L (4-34); AST 16 U/L (14-36); African American GFR (CKD) >90 (>60 ml/min/1.73 sqM); Albumin 3.5 g/dL (3.5-5.0); Alkaline Phosphatase 89 U/L (38-126); Anion Gap 7 mmol/L; Blood Urea Nitrogen 7 mg/dL (7-17); C Reactive Protein 3.6 mg/dL (<1.0); Calcium 8.5 mg/dL (8.4-10.2); Carbon Dioxide 19 mmol/L (22-30); Chloride 112 mmol/L (98-107); Glucose 117 mg/dL (74-99); Non-African American GFR(CKD) >90 (>60 ml/min/1.73 sqM); Potassium 3.6 mmol/L (3.5-5.1); Sodium 138 mmol/L (137-145); Total Bilirubin 0.4 mg/dL (0.2-1.3); Total Protein 6.6 g/dL (6.3-8.2)
[2024-04-18] MEDS: HYDROmorphone 0.5 MG/0.5 ML SYRINGE IVP STA (02:27)
[2024-04-18 03:21] LABS: Appearance,Urine Cloudy (Clear); Bacteria,Urine Rare /hpf; Bilirubin,Urine Negative (Negative); Blood,Urine Large (Negative); Color,Urine Yellow; Glucose,Urine (UA) Negative (Negative); Ketones,Urine Negative (Negative); Leukocyte Esterase,Urine Small (Negative); Mucus,Urine Many /hpf; Nitrite,Urine Negative (Negative); PH, Urine 5.5 (5.0-8.0); Protein,Urine Trace (Negative); RBC,Urine 27 /hpf (0-5); Specific Gravity,Urine 1.017 (1.001-1.035); Squamous Epithelial Cell,Urine 6 /hpf (0-4); Urobilinogen,Urine <2.0 mg/dL (<2.0); WBC,Urine 4 /hpf (0-5)
[2024-04-18 04:52] VITALS: BP 118/71; PULSE 80; RESP 18; TEMP 98.1
[2024-04-18 10:17] LABS: Erythrocyte Sedimentation Rate 41 mm/Hr (0-20)
== END 2024-04-18 04:00 | disposition home or self-care (01) ==
LOC: EC 21:00
DX: R21 Rash and other nonspecific skin eruption (principal); Z88.8 Allergy status to other drugs, medicaments and biological substances
CPT/HCPCS: 36415; 80053; 85652; 85025; 86140; 81001; 99283; 96374; 96375 ×2; J1200; J3490; J1885; J7512

== ENCOUNTER → 2024-04-22 | Outpatient (CLI) | payer BC ==
[2024-04-22 14:54] LABS: Basophils # (A) 0.02 X 10*3/uL (0.00-0.10); Basophils % (A) 0.1 %; Eosinophils # (A) 0.01 X 10*3/uL (0.04-0.35); Eosinophils % (A) 0.1 %; HCT 38.6 % (37.2-46.3); HGB 12.1 g/dL (12.0-15.0); Lymphocytes # (A) 1.78 X 10*3/uL (0.90-5.00); Lymphocytes % (A) 10.4 %; MCH 24.3 pg (27.0-32.0); MCHC 31.3 g/dL (32.0-37.0); MCV 77.5 FL (80.0-97.0); Mean Platelet Volume 9.4 FL (9.5-12.2); Monocytes % (A) 5.8 %; NRBC Per 100 WBC 0 X 10*3/uL (0.00-0.01); Neutrophils # (A) 14.25 X 10*3/uL (1.80-7.70); Platelet Count 455 X 10*3/uL (140-440); RBC 4.98 X 10*6/uL (4.10-5.20); RDW 15.5 % (11.5-14.5); WBC 17.16 X 10*3/uL (4.50-10.00)
[2024-04-22 16:06] LABS: ALT 11 U/L (8-44); AST 12 U/L (13-35); Albumin 4.3 g/dL (3.8-4.9); Albumin/Globulin Ratio 1.54 Ratio (1.60-3.17); Alkaline Phosphatase 99 U/L (41-126); Bilirubin, Conjugated <0.20 mg/dL (0.20-0.40); Globulin 2.8 g/dL (1.6-3.3); Total Bilirubin <0.2 mg/dL (0.3-1.2); Total Protein 7.1 g/dL (6.2-8.2)
== END | disposition home or self-care (01) ==
LOC: LABWHC1 09:35
PROVIDERS: ATTEND Internal Medicine Rheumatology
DX: Z51.81 Encounter for therapeutic drug level monitoring (principal); H16.303 Unspecified interstitial keratitis, bilateral; Z79.899 Other long term (current) drug therapy
CPT/HCPCS: 36415; 80076; 82565; 85025

== ENCOUNTER → 2024-06-15 | Outpatient (CLI) | payer BC | END | disposition home or self-care (01) | LOC: LABWHC1 13:49 | PROVIDERS: ATTEND Internal Medicine Rheumatology | DX: Z51.81 Encounter for therapeutic drug level monitoring (principal); H16.303 Unspecified interstitial keratitis, bilateral; Z79.899 Other long term (current) drug therapy | CPT/HCPCS: 36415; 86480 ==

== ENCOUNTER 2024-09-01 20:17 | Emergency (ER) | payer BC ==
[2024-09-01 20:22] VITALS: RESP 18
--- NOTE | 2024-09-01 20:24 | ED ---
Skin/Abscess/FB HPI - General Chief complaint: Skin/Abscess/Foreign Body Stated complaint: Abcess Pelvic Time Seen by Provider: 09/01/24 20:30 Source: patient, RN notes reviewed Mode of arrival: ambulatory Limitations: no limitations - History of Present Illness Initial comments: This is a 34-year-old female presents emergency department chief complaint of a lower abdominal/pelvic abscess. Patient states that on Saturday and Saturday of last week she began to elicit there is a bump forming and a beginning of an abscess. Patient went to urgent care on Saturday where the abscess was incised and drained and she was started on doxycycline. Patient states that she is taking 2 tablets of the doxycycline with her first dose being yesterday evening and second dose being this morning. she is concerned that the area has been becoming more painful and started to drain today as well a serous/red fluid. denies fevers, chills, nausea or vomiting. - Related Data Home Medications Medication Instructions Recorded Confirmed Cetirizine HCl [Zyrtec] 10 mg PO DAILY PRN 05/09/23 05/09/23 Omeprazole Magnesium [PriLOSEC OTC] 20 mg PO DAILY 05/09/23 05/09/23 Previous Rx's Medication Instructions Recorded Famotidine [Pepcid] 20 mg PO BID #28 tablet 06/17/23 HYDROcodone/APAP 5-325MG [[place] 1 tab PO Q4HR PRN 3 Days #18 tab 08/29/23 5-325] predniSONE 60 mg PO DAILY #30 tab 08/29/23 Capsaicin Cream [Trixaicin Cream] 1 applic TOPICAL QID PRN #60 gm 12/21/23 Meloxicam [Mobic] 15 mg PO DAILY PRN #30 tab 12/21/23 methocarbamoL [Robaxin-750] 1,500 mg PO TID PRN #30 tab 12/21/23 Dicyclomine [Bentyl] 10 mg PO TID PRN 7 Days #21 capsule 02/09/24 Cephalexin [Keflex] 500 mg PO Q12HR 5 Days #10 cap 02/14/24 Metoclopramide [Reglan] 5 mg PO BID 5 Days #10 tab 02/14/24 predniSONE 50 mg PO DAILY 7 Days #7 tablet 04/18/24 Cephalexin [Keflex] 500 mg PO Q6HR #39 cap 09/01/24 Sulfamethox-Tmp 800-160Mg [Bactrim 1 each PO Q12HR #19 tab 09/01/24 Ds] Allergies Allergy/AdvReac Type Severity Reaction Status Date / Time azathioprine [From Azasan] Allergy Rash/Hives Verified 04/17/24 21:09 Review of Systems ROS Statement: Those systems with pertinent positive or pertinent negative responses have been documented in the HPI. ROS Other: All systems not noted in ROS Statement are negative. Past Medical History Past Medical History: Asthma, Rheumatoid Arthritis (RA) Additional Past Medical History / Comment(s): IBS, pleurisy, cogans syndrome History of Any Multi-Drug Resistant Organisms: None Reported Past Surgical History: Appendectomy, Section Additional Past Surgical History / Comment(s): nose surg. colonoscopy Past Anesthesia/Blood Transfusion Reactions: No Reported Reaction Past Psychological History: No Psychological Hx Reported Smoking Status: Never smoker Past Alcohol Use History: Occasional Past Drug Use History: None Reported - Past Family History Mother Family Medical History: No Reported History General Exam Limitations: no limitations General appearance: alert, in no apparent distress Eye exam: Present: normal appearance, PERRL, EOMI. Absent: scleral icterus, conjunctival injection, periorbital swelling Neck exam: Present: normal inspection. Absent: tenderness, meningismus, lymphadenopathy Respiratory exam: Present: normal lung sounds bilaterally. Absent: respiratory distress, wheezes, rales, rhonchi, stridor Cardiovascular Exam: Present: regular rate, normal rhythm, normal heart sounds. Absent: systolic murmur, diastolic murmur, rubs, gallop, clicks GI/Abdominal exam: Present: soft, normal bowel sounds, other (lower pelvic/suprapubic abscess 1 cm with erythema and tenderness to palpation with no surrounding erythema. no active purulence). Absent: distended, tenderness, guarding, rebound, rigid Extremities exam: Present: normal inspection, full ROM, normal capillary refill. Absent: tenderness, pedal edema, joint swelling, calf tenderness Skin exam: Present: warm, dry, intact, normal color. Absent: rash Course Vital Signs 09/01/24 09/01/24 20:18 21:34 Temperature 97.7 F 98.3 F Pulse Rate 86 85 Respiratory 18 18 Rate Blood Pressure 126/86 129/88 O2 Sat by Pulse 98 98 Oximetry Procedures - Incision & Drainage Consent Obtained: verbal consent Site: abdomen (pelvic) Anesthetic Used: lidocaine 1% I&D Cleaning Method: Chloroprep Scalpel Used: #11 Needle Aspiration Performed?: No Irrigation Performed?: No I&D Drainage Obtained: Pus, Blood Culture Obtained?: No Complications: bleeding Patient Tolerated Procedure: well, no complications Medical Decision Making - Medical Decision Making Was pt. sent in by a medical professional or institution (NAYA Nettles, CULINARY WORKER, urgent care, hospital, or fci...) When possible be specific @ -No Did you speak to anyone other than the patient for history (EMS, parent, family, police, friend...)? What history was obtained from this source @ -No Did you review nursing and triage notes (agree or disagree)? Why? @ -I reviewed and agree with nursing and triage notes Were old charts reviewed (outside hosp., previous admission, EMS record, old EKG, old radiological studies, urgent care reports/EKG's, fci records)? Report findings @ -No old charts were reviewed Differential Diagnosis (chest pain, altered mental status, abdominal pain women, abdominal pain men, vaginal bleeding, weakness, fever, dyspnea, syncope, headache, dizziness, GI bleed, back pain, seizure, CVA, palpatations, mental health, musculoskeletal)? @ -Abscess, cellulitis, this list is not all inclusive EKG interpreted by me (3pts min.). @ -None X-rays interpreted by me (1pt min.). @ -None done CT interpreted by me (1pt min.). @ -None done U/S interpreted by me (1pt. min.). @ -None done What testing was considered but not performed or refused? (CT, X-rays, U/S, labs)? Why? @ -None What meds were considered but not given or refused? Why? @ -None Did you discuss the management of the patient with other professionals (professionals i.e. NAYA Nettles, CULINARY WORKER, lab, RT, psych nurse, geriatric social work professor, patient service associate, teacher, retirement officer, window caser)? Give summary @ -No Was smoking cessation discussed for >3mins.? @ -No Was critical care preformed (if so, how long)? @ -No Were there social determinants of health that impacted care today? How? (Homelessness, low income, unemployed, alcoholism, drug addiction, transportation, low edu. Level, literacy, decrease access to med. care, intermediate, rehab)? @ -No Was there de-escalation of care discussed even if they declined (Discuss DNR or withdrawal of care, Hospice)? DNR status @ -No What co-morbidities impacted this encounter? (DM, HTN, Smoking, COPD, CAD, Cancer, CVA, ARF, Chemo, Hep., AIDS, mental health diagnosis, sleep apnea, morbid obesity)? @ -None Was patient admitted / discharged? Hospital course, mention meds given and route, prescriptions, significant lab abnormalities, going to OR and other pertinent info. @ -Discharge. 30-year-old female with abscess. Area was cleansed with saline and 1% lidocaine was used with local infiltration. A 11 blade scalpel was used to make an incision with drainage of blood and mild purulent material. Recommend that patient continue to use warm compresses at home. She was provided with first dose of antibiotics emergency department. Bactrim and Keflex and she will be sent full course. He is a [facility] pharmacy as well for further antibiotic coverage. She is stable for discharge. Discussed with Dr. Wei Undiagnosed new problem with uncertain prognosis? @ -No Drug Therapy requiring intensive monitoring for toxicity (Heparin, Nitro, Insulin, Cardizem)? @ -No Were any procedures done? @ -incision and drainage of abscess Diagnosis/symptom? @ -abscess Acute, or Chronic, or Acute on Chronic? @ -Acute Uncomplicated (without systemic symptoms) or Complicated (systemic symptoms)? @ -Uncomplicated Side effects of treatment? @ -No Exacerbation, Progression, or Severe Exacerbation? @ -No Poses a threat to life or bodily function? How? (Chest pain, [place], [place], pneumonia, PE, COPD, DKA, ARF, appy, cholecystitis, CVA, Diverticulitis, Homicidal, Suicidal, threat to staff... and all critical care pts) @ -No Disposition Clinical Impression: Abscess Disposition: HOME SELF-CARE Condition: Good Instructions (If sedation given, give patient instructions): Abscess Incision and Drainage (ED) Additional Instructions: Return to emergency department for any new or worsening symptoms. Recommend continue full course of Bactrim and Keflex as prescribed. Continue warm compresses at home to 4 times per day. Prescriptions: Sulfamethox-Tmp 800-160Mg [Bactrim Ds] 1 each PO Q12HR #19 tab Cephalexin [Keflex] 500 mg PO Q6HR #39 cap Is patient prescribed a controlled substance at d/c from ED?: No Referrals: Cherelle Coppola MD [Primary Care Provider] - 1-2 days Time of Disposition: 21:15
[2024-09-01] MEDS: LIDOCAINE 1% INJ 10MG/ML (20 ML MDV) SQ ONE (20:44)
[2024-09-01] MEDS: Acetaminophen-Codeine 300-30mg TAB PO STA (21:31)
[2024-09-01] MEDS: CEPHALEXIN 500 MG CAP PO STA (21:31)
[2024-09-01] MEDS: SULFAMETHOX-TMP 800-160MG 1 EACH TAB PO STA (21:31)
[2024-09-01 21:36] VITALS: BP 129/88; PULSE 85; TEMP 98.3
== END 2024-09-01 21:36 | disposition home or self-care (01) ==
LOC: EC 20:17
CPT/HCPCS: 10060; 99283

== ENCOUNTER 2025-03-06 22:10 | Outpatient (CLI) | payer BC ==
[2025-03-07] MEDS ORDERED: Rhogam IMMUNE GLOBULIN 1,500 UNIT/1 ML IM ONE (01:25)
[2025-03-07] MEDS: Rhogam IMMUNE GLOBULIN 1,500 UNIT/1 ML IM ONE (02:00)
[2025-03-07 02:23] VITALS: BP 123/64; PULSE 83; RESP 16; TEMP 97.9
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
== END 2025-03-07 02:20 ==
LOC: FBPOP 22:10
PROVIDERS: ATTEND Obstetrics & Gynecology Obstetrics
DX: O9A.212 Injury, poisoning and certain other consequences of external causes complicating pregnancy, second trimester (principal); T14.90XA Injury, unspecified, initial encounter; W19.XXXA Unspecified fall, initial encounter; Z3A.26 26 weeks gestation of pregnancy; Z88.8 Allergy status to other drugs, medicaments and biological substances
CPT/HCPCS: 99213; 86900; 86901; 86850; J2790

== ENCOUNTER 2025-03-22 21:52 | Emergency (ER) | payer BC ==
[2025-03-22 22:06] VITALS: RESP 18
[2025-03-22 23:15] LABS: Basophils # (A) 0.05 10*3/uL (0.00-0.10); Basophils % (A) 0.6 %; Eosinophils # (A) 0.08 10*3/uL (0.04-0.35); Eosinophils % (A) 0.9 %; HCT 39.5 % (37.2-46.3); Lymphocytes # (A) 1.14 10*3/uL (0.90-5.00); Lymphocytes % (A) 12.8 %; MCH 27.1 pg (27.0-32.0); MCHC 32.9 g/dL (32.0-37.0); MCV 82.3 fL (80.0-97.0); Monocytes # (A) 0.62 10*3/uL (0.20-1.00); Neutrophils # (A) 6.82 10*3/uL (1.80-7.70); Neutrophils % (A) 76.6 %; Platelet Count 293 10*3/uL (140-440)
[2025-03-22 23:40] LABS: ALT 13 U/L (4-34); AST 24 U/L (14-36); African American GFR (CKD) >90 (>60 ml/min/1.73 sqM); Albumin 3.8 g/dL (3.5-5.0); Alkaline Phosphatase 118 U/L (38-126); Amylase 54 U/L (30-110); Anion Gap 10 mmol/L; Blood Urea Nitrogen 4 mg/dL (7-17); Calcium 9.2 mg/dL (8.4-10.2); Carbon Dioxide 21 mmol/L (22-30); Chloride 103 mmol/L (98-107); Glucose 96 mg/dL (74-99); Lipase 33 U/L (23-300); Non-African American GFR(CKD) >90 (>60 ml/min/1.73 sqM); Potassium 3.6 mmol/L (3.5-5.1); Sodium 134 mmol/L (137-145); Total Bilirubin 0.4 mg/dL (0.2-1.3); Total Protein 7.1 g/dL (6.3-8.2)
[2025-03-22] MEDS: SODIUM CHLORIDE 0.9% 1,000 ML IV ONE (23:47)
[2025-03-22] MEDS: ONDANSETRON 4 MG/2 ML VIAL IVP STA (23:48)
[2025-03-23 00:11] LABS: Appearance,Urine Cloudy (Clear); Bilirubin,Urine 1+ (Negative); Blood,Urine Negative (Negative); Color,Urine Yellow; Glucose,Urine (UA) Negative (Negative); Ketones,Urine Negative (Negative); Leukocyte Esterase,Urine Trace (Negative); Mucus,Urine Moderate /hpf; Nitrite,Urine Negative (Negative); Protein,Urine 1+ (Negative); RBC,Urine 1 /hpf (0-5); Squamous Epithelial Cell,Urine 9 /hpf (0-4); WBC,Urine 3 /hpf (0-5)
--- NOTE | 2025-03-23 00:36 | ED ---
Nausea/Vomiting/Diarrhea HPI - General Chief complaint: Nausea/Vomiting/Diarrhea Stated complaint: 28 weeks preg, Lower Back Pain Time Seen by Provider: 03/22/25 22:24 Source: patient Mode of arrival: ambulatory Limitations: no limitations - History of Present Illness Initial comments: This patient is a 34-year-old woman who presents evaluation for constellation of symptoms including nausea, vomiting, epigastric abdominal pain and bilateral lower back pain. The patient states that she had been feeling well up until or Saturday. States that she then started having some frequency and some dysuria. She was seen at an urgent care and has been taking Keflex since that time. The patient does note that after taking the Keflex she developed nausea vomiting and she has the epigastric discomfort that she describes as burning. She also had an episode of diarrhea. She has not noted fever or chills. She has not noted pelvic pain, vaginal discharge, bleeding or other symptoms. Patient states she is 28 weeks has had ultrasound. She does have movement. MD complaint: nausea, vomiting, abdominal pain, other Onset/Timin -: days(s) Description of Vomiting: food contents Associated Abdominal Pain: Yes Location: epigastric Radiation: none Severity: mild Quality: other (Burning) Consistency: intermittent Improves with: none Worsens with: vomiting Context: recent antibiotic use Associated Symptoms: denies other symptoms - Related Data Home Medications Medication Instructions Recorded Confirmed Adalimumab [Humira] 80 mg SQ 03/06/25 Omeprazole [PriLOSEC] 10 mg PO 03/06/25 Vit No.179/Iron/Folic 1 each PO 03/06/25 [ Tablet] Previous Rx's Medication Instructions Recorded Doxylamine Succinate/Vit B6 1 tab PO BID PRN #14 tab 03/23/25 [Lexus [place]ona 10-10 mg Tablet] Allergies Allergy/AdvReac Type Severity Reaction Status Date / Time azathioprine [From Azasan] Allergy Rash/Hives Verified 03/22/25 22:06 Review of Systems ROS Statement: Those systems with pertinent positive or pertinent negative responses have been documented in the HPI. ROS Other: All systems not noted in ROS Statement are negative. Constitutional: Denies: fever, chills, weakness ENT: Denies: throat pain, congestion Respiratory: Denies: cough, dyspnea Cardiovascular: Denies: chest pain, palpitations, edema Gastrointestinal: Reports: abdominal pain, nausea, vomiting, diarrhea. Denies: constipation, hematemesis, melena, hematochezia Genitourinary: Reports: as per HPI, frequency. Denies: dysuria, hematuria, discharge, abnormal menses Musculoskeletal: Reports: back pain Skin: Denies: rash Neurological: Denies: headache, weakness, numbness Past Medical History Past Medical History: Asthma, Rheumatoid Arthritis (RA) Additional Past Medical History / Comment(s): IBS, pleurisy, cogans syndrome History of Any Multi-Drug Resistant Organisms: None Reported Past Surgical History: Appendectomy, Section Additional Past Surgical History / Comment(s): nose surg. colonoscopy Past Anesthesia/Blood Transfusion Reactions: No Reported Reaction Past Psychological History: No Psychological Hx Reported Smoking Status: Never smoker Past Alcohol Use History: None Reported Past Drug Use History: None Reported - Past Family History Mother Family Medical History: No Reported History General Exam Limitations: no limitations General appearance: alert, in no apparent distress Head exam: Present: atraumatic, normocephalic Eye exam: Present: normal appearance. Absent: scleral icterus, conjunctival injection Neck exam: Present: normal inspection Respiratory exam: Present: normal lung sounds bilaterally. Absent: respiratory distress, wheezes, rales, rhonchi, stridor, accessory muscle use Cardiovascular Exam: Present: regular rate, normal rhythm, normal heart sounds. Absent: systolic murmur, diastolic murmur, rubs, gallop GI/Abdominal exam: Present: soft, mass (Gravid uterus present above the umbilicus. No tenderness). Absent: distended, tenderness, guarding, rebound, rigid, organomegaly, hernia Extremities exam: Present: normal inspection, normal capillary refill. Absent: pedal edema, calf tenderness Back exam: Present: normal inspection, paraspinal tenderness. Absent: CVA tenderness (R), CVA tenderness (L), muscle spasm, vertebral tenderness, rash noted Neurological exam: Present: alert Skin exam: Present: warm, dry, intact, normal color. Absent: rash Course Vital Signs 03/22/25 03/23/25 22:02 00:54 Temperature 97.6 F 98.5 F Pulse Rate 101 H 75 Respiratory 18 18 Rate Blood Pressure 143/94 118/75 O2 Sat by Pulse 99 98 Oximetry Medical Decision Making - Medical Decision Making This patient is a 34-year-old woman here with epigastric discomfort, nausea, vomiting, diarrhea since she had started on Keflex for her urinary tract infection diagnosed on Saturday at an urgent care. The patient also having low back pain, but on the exam this does appear to be muscular in nature it is reproducible. There is no CVA tenderness. The patient's labs are benign. The patient not having evidence of urinary tract infection at this time. Culture is sent. The patient does appear stable to stop the antibiotics at this time as they may be responsible for her GI symptoms. The patient will be given Diclegis for the nausea vomiting though she is feeling somewhat better here after fluids. We discussed appropriate further care and follow-up as well as return parameters. - Lab Data Result diagrams: 03/22/25 23:05 03/22/25 23:05 Lab Results 03/22/25 03/22/25 03/22/25 Range/Units 23:05 23:05 23:05 WBC 8.90 (4.50-10.00) 10*3/uL RBC 4.80 (4.10-5.20) 10*6/uL Hgb 13.0 (12.0-15.0) g/dL Hct 39.5 (37.2-46.3) % MCV 82.3 (80.0-97.0) fL MCH 27.1 (27.0-32.0) pg MCHC 32.9 (32.0-37.0) g/dL Plt Count 293 (140-440) 10*3/uL MPV 9.0 L (9.5-12.2) fL Immature Gran % (Auto) 2.1 % Neutrophils % 76.6 % Lymphocytes % 12.8 % Monocytes % 7.0 % Eosinophils % 0.9 % Basophils % 0.6 % Immature Gran # 0.19 H (0.00-0.04) 10*3/uL Neutrophils # 6.82 (1.80-7.70) 10*3/uL Lymphocytes # 1.14 (0.90-5.00) 10*3/uL Monocytes # 0.62 (0.20-1.00) 10*3/uL Eosinophils # 0.08 (0.04-0.35) 10*3/uL Basophils # 0.05 (0.00-0.10) 10*3/uL Sodium 134 L (137-145) mmol/L Potassium 3.6 (3.5-5.1) mmol/L Chloride 103 (98-107) mmol/L Carbon Dioxide 21 L (22-30) mmol/L Anion Gap 10 mmol/L BUN 4 L (7-17) mg/dL Creatinine 0.52 (0.52-1.04) mg/dL Est GFR (CKD-EPI)AfAm >90 (>60 ml/min/1.73 sqM) Est GFR (CKD-EPI)NonAf >90 (>60 ml/min/1.73 sqM) Glucose 96 (74-99) mg/dL Plasma Lactic Acid [place] (0.7-2.0) mmol/L Calcium 9.2 (8.4-10.2) mg/dL Total Bilirubin 0.4 (0.2-1.3) mg/dL AST 24 (14-36) U/L ALT 13 (4-34) U/L Alkaline Phosphatase 118 (38-126) U/L Total Protein 7.1 (6.3-8.2) g/dL Albumin 3.8 (3.5-5.0) g/dL Amylase 54 (30-110) U/L Lipase 33 (23-300) U/L Urine Color Yellow Urine Appearance Cloudy H (Clear) Urine pH 6.0 (5.0-8.0) Ur Specific [place] 1.030 (1.001-1.035) Urine Protein 1+ H (Negative) Urine Glucose (UA) Negative (Negative) Urine Ketones Negative (Negative) Urine Blood Negative (Negative) Urine Nitrite Negative (Negative) Urine Bilirubin 1+ H (Negative) Urine Urobilinogen 3.0 (<2.0) mg/dL Ur Leukocyte Esterase Trace H (Negative) Urine RBC 1 (0-5) /hpf Urine WBC 3 (0-5) /hpf Ur Squamous Epith Cells 9 H (0-4) /hpf Urine Mucus Moderate H (None) /hpf 03/22/25 Range/Units 23:05 WBC (4.50-10.00) 10*3/uL RBC (4.10-5.20) 10*6/uL Hgb (12.0-15.0) g/dL Hct (37.2-46.3) % MCV (80.0-97.0) fL MCH (27.0-32.0) pg MCHC (32.0-37.0) g/dL Plt Count (140-440) 10*3/uL MPV (9.5-12.2) fL Immature Gran % (Auto) % Neutrophils % % Lymphocytes % % Monocytes % % Eosinophils % % Basophils % % Immature Gran # (0.00-0.04) 10*3/uL Neutrophils # (1.80-7.70) 10*3/uL Lymphocytes # (0.90-5.00) 10*3/uL Monocytes # (0.20-1.00) 10*3/uL Eosinophils # (0.04-0.35) 10*3/uL Basophils # (0.00-0.10) 10*3/uL Sodium (137-145) mmol/L Potassium (3.5-5.1) mmol/L Chloride (98-107) mmol/L Carbon Dioxide (22-30) mmol/L Anion Gap mmol/L BUN (7-17) mg/dL Creatinine (0.52-1.04) mg/dL Est GFR (CKD-EPI)AfAm (>60 ml/min/1.73 sqM) Est GFR (CKD-EPI)NonAf (>60 ml/min/1.73 sqM) Glucose (74-99) mg/dL Plasma Lactic Acid [place] 0.8 (0.7-2.0) mmol/L Calcium (8.4-10.2) mg/dL Total Bilirubin (0.2-1.3) mg/dL AST (14-36) U/L ALT (4-34) U/L Alkaline Phosphatase (38-126) U/L Total Protein (6.3-8.2) g/dL Albumin (3.5-5.0) g/dL Amylase (30-110) U/L Lipase (23-300) U/L Urine Color Urine Appearance (Clear) Urine pH (5.0-8.0) Ur Specific [place] (1.001-1.035) Urine Protein (Negative) Urine Glucose (UA) (Negative) Urine Ketones (Negative) Urine Blood (Negative) Urine Nitrite (Negative) Urine Bilirubin (Negative) Urine Urobilinogen (<2.0) mg/dL Ur Leukocyte Esterase (Negative) Urine RBC (0-5) /hpf Urine WBC (0-5) /hpf Ur Squamous Epith Cells (0-4) /hpf Urine Mucus (None) /hpf Disposition Clinical Impression: Nausea and vomiting Disposition: HOME SELF-CARE Condition: Good Instructions (If sedation given, give patient instructions): Acute Nausea and Vomiting (ED) Prescriptions: Doxylamine Succinate/Vit B6 [Diclegis Dr 10-10 mg Tablet] 1 tab PO BID PRN #14 tab PRN Reason: Nausea Is patient prescribed a controlled substance at d/c from ED?: No Referrals: Cherelle Coppola MD [Primary Care Provider] - 1-2 days
[2025-03-23] MEDS: PYRIDOXINE 50 MG TAB PO STA (00:50)
[2025-03-23 00:55] VITALS: BP 118/75; PULSE 75; TEMP 98.5
== END 2025-03-23 00:57 | disposition home or self-care (01) ==
LOC: EC 21:52
DX: O21.9 Vomiting of pregnancy, unspecified (principal); Z88.8 Allergy status to other drugs, medicaments and biological substances; Z3A.28 28 weeks gestation of pregnancy
CPT/HCPCS: 36415; 80053; 81001; 82150; 83605; 83690; 85025; 87086; 96360; 99284